=== PATIENT | male | born 1945 | race Caucasian/White ===

== ENCOUNTER 2019-04-24 12:13 | Observation (INO) | payer MEDICARE, OTHER ==
[2019-04-24] MEDS ORDERED: Sodium Chloride 0.9% 1000 ML 1,000 ML IV STA (15:17)
[2019-04-24] MEDS ORDERED: FEVERALL 650 MG PR PRN (15:17)
[2019-04-24] MEDS ORDERED: NovoLOG Insulin SQ PRN (15:17)
[2019-04-24 15:42] LABS: Absolute Neutrophil Ct (ANC) 6.78 (1.4-6.9); BASOPHIL % 0.3 % (0.0-0.4); Basophil (Absolute #) 0.03 (0-0.4); Eosinophil % 3.2 % (0.00-5.0); Eosinophil (Absolute #) 0.28 (0-0.5); Hemoglobin 13.8 gm/dl (12.5-18.0); Lymphocyte (Absolute #) 0.86 (1.0-4.6); Lymphocytes % 9.7 % (24.0-44.0); Mean Cell Volume 103.5 fl (78-100); Mean Corpuscular Hemoglobin 32.5 pg (26-32); Mean Corpuscular Hgb Concent. 31.4 g/dl (32-36); Mean Platelet Volume 11.5 fl (7.5-11.0); Monocyte (Absolute #) 0.89 (0.0-1.3); Monocytes % 10.1 % (0.0-12.0); Neutrophil % 76.7 % (36.0-66.0); Platelet Count 84 K/mm3 (150-450); Red Blood Count 4.25 M/mm3 (4.1-5.6); Red Cell Distribution Width 17.7 % (11.5-14.0); White Blood Count 8.8 K/mm3 (4.0-10.5)
[2019-04-24 16:03] LABS: ALBUMIN 3.8 g/dL (3.5-5.0); ALKALINE PHOSPHATASE 74 U/L (38-126); ANION GAP 9.9 MEQ/L (5-15); BLOOD UREA NITROGEN 22 mg/dL (9-20); CHLORIDE 102 mmol/L (98-107); Carbon Dioxide 29 mmol/L (22-30); Creatinine 1 0.86 mg/dL (0.66-1.25); Glucose 144 mg/dL (74-106); NT PRO BNP 139 pg/mL (0-900); Potassium 3.6 mmol/L (3.5-5.1); SGOT/AST 33 U/L (17-59); SGPT/ALT 33 U/L (0-50); SODIUM 138 mmol/L (137-145); Total Protein 6.4 g/dL (6.3-8.2)
[2019-04-24 16:13] LABS: Erythrocyte Sedimentation Rate 4 mm/hr (0-15)
--- NOTE | 2019-04-24 16:21 | XRAY ---
Indication: Bilateral rib pain. Multiple falls. Comparison: May 30, 2006. PA/lateral chest underinflated with new left base infiltrate/atelectasis and tiny effusion. Remaining heart and right lung normal. Bony thorax intact again with mild degenerative changes and multiple old bilateral rib fractures.
[2019-04-24 16:50] LABS: Slide Review 1 YES
[2019-04-24] MEDS: Coumadin 2.5 MG PO SCH (17:41)
[2019-04-24] MEDS: Sodium Chloride 0.9% 1000 ML 1,000 ML IV SCH (17:42)
[2019-04-24] MEDS: MORPHINE SULFATE 4 MG INJ IV PRN ×2 (17:46→21:08)
[2019-04-24] MEDS: xanAX 0.5 MG PO SCH ×2 (17:47→21:07)
[2019-04-24] MEDS: Bystolic 5 MG PO SCH (21:07)
[2019-04-24] MEDS: ROCEPHIN 1 Gm-D5w 50 ml Bag** 1 G/50 ML IVPB IV SCH (21:07)
[2019-04-24] MEDS: Zanaflex 4 MG PO SCH (21:07)
[2019-04-24] MEDS: ZOCOR 20MG PO SCH (21:07)
[2019-04-24] MEDS: Protonix 40MG Tablet PO SCH (21:07)
[2019-04-24] MEDS ORDERED: NON-FORMULARY ITEM (Atorvastatin Calcium [Lipitor] 20 MG) PO SCH (22:00)
[2019-04-24] MEDS: Zithromax 500 MG/ 250 ML NaCl Premix 500 MG/250 ML IVPB IV SCH (22:18)
[2019-04-25] MEDS: MORPHINE SULFATE 4 MG INJ IV PRN ×3 (00:52→21:30)
[2019-04-25] MEDS: Sodium Chloride 0.9% 1000 ML 1,000 ML IV SCH ×2 (05:19→17:45)
[2019-04-25 08:21] LABS: Appearance CLEAR (CLEAR); Bilirubin NEGATIVE (NEGATIVE); Blood NEGATIVE Ery/ul (0-5); Glucose NEGATIVE (NEGATIVE); Ketones NEGATIVE (NEGATIVE); Leukocyte Esterase NEGATIVE (NEGATIVE); Mucus SLIGHT /HPF (NEGATIVE); Nitrite NEGATIVE (NEGATIVE); Protein,Urine Dip NEGATIVE (Negative); Specific Gravity 1.012 (1.005-1.025); Urobilinogen NEGATIVE mg/dL (0-1)
[2019-04-25] MEDS: Zanaflex 4 MG PO SCH ×2 (09:43→21:30)
[2019-04-25] MEDS: Cymbalta 30 MG Capsule PO SCH (09:43)
[2019-04-25] MEDS: xanAX 0.5 MG PO SCH ×3 (09:46→21:30)
[2019-04-25 09:57] LABS: Hematocrit 44.2 % (42-50); Hemoglobin 13.5 gm/dl (12.5-18.0); Mean Corpuscular Hemoglobin 32.4 pg (26-32); Mean Corpuscular Hgb Concent. 30.5 g/dl (32-36); Mean Platelet Volume 11.9 fl (7.5-11.0); Platelet Count 109 K/mm3 (150-450); Red Blood Count 4.17 M/mm3 (4.1-5.6); Red Cell Distribution Width 17.8 % (11.5-14.0)
[2019-04-25] MEDS ORDERED: NON-FORMULARY ITEM (Duloxetine Hcl [Cymbalta] 60 MG) PO SCH (10:00)
[2019-04-25 10:05] LABS: ALBUMIN 3.2 g/dL (3.5-5.0); ALKALINE PHOSPHATASE 65 U/L (38-126); ANION GAP 8.7 MEQ/L (5-15); BLOOD UREA NITROGEN 15 mg/dL (9-20); CHLORIDE 107 mmol/L (98-107); Calcium 7.6 mg/dL (8.4-10.2); Carbon Dioxide 28 mmol/L (22-30); Creatinine 1 0.77 mg/dL (0.66-1.25); Glucose 104 mg/dL (74-106); Potassium 4.1 mmol/L (3.5-5.1); SGOT/AST 34 U/L (17-59); SGPT/ALT 33 U/L (0-50); SODIUM 140 mmol/L (137-145); Total Protein 5.7 g/dL (6.3-8.2)
[2019-04-25 10:06] LABS: AMYLASE 49 U/L (30-110); LIPASE 54 U/L (23-300)
[2019-04-25 12:45] LABS: INR 1.69 (0.8-3.0); PROTIME 19.3 SECONDS (8.83-12.87)
--- NOTE | 2019-04-25 13:38 | XRAY ---
Indication: Pneumonia. Multiple contiguous axial images obtained through the chest prior to and following 80 cc Isovue 370 contrast as ordered. Comparison: None Lungs demonstrates small bilateral pleural effusions with mild bibasilar subsegmental atelectasis/scarring. Minimal right upper lobe fibrosis/scarring and tiny left lower lobe calcified granuloma. Heart is not enlarged. Aorta is normal in course and caliber. Tiny left hilar calcified node. No pathologic mediastinal/hilar lymphadenopathy. Bony thorax demonstrates flowing osteophytes throughout the spine and old posterior right 6-8 rib fractures. Limited upper abdomen demonstrates calcified splenic granulomas and 1.8 cm right lobe hepatic cyst unchanged with respect to CT abdomen June 11, 2016. Gastric lumen demonstrates a new 3 x 18 mm metallic density. Impression: 1. Small nonspecific bilateral pleural effusions/atelectasis/scarring without cardiomegaly. 2. Hepatic cyst, chronic bony findings, and evidence for old granulomatous disease. 3. Metallic density in the gastric lumen. Rule out ingested foreign body.
--- NOTE | 2019-04-25 14:12 | PCM.HP.ADD ---
Addendum to History & Physical - History & Physical Addendum Addendum to History & Physical: This certifies that the History & Physical in the electronic chart reflects the current health status of the patient. If there are changes in the H&P these changes/exceptions are listed as follows.
--- NOTE | 2019-04-25 14:13 | PCM.NOTE ---
Date and Time: 04/25/191411 Subjective Assessment: still confused - Review of Systems Constitutional: No Fever, No Chills Eyes: No Symptoms Ears, Nose, & Throat: No Symptoms Respiratory: No Cough, No Short Of Breath Cardiac: No Chest Pain, No Edema, No Syncope Abdominal/Gastrointestinal: No Abdominal Pain, No Nausea, No Vomiting, No Diarrhea Genitourinary Symptoms: No Dysuria Musculoskeletal: No Back Pain, No Neck Pain Skin: No Rash Neurological: No Dizziness, No Focal Weakness, No Sensory Changes Psychological: No Symptoms Endocrine: No Symptoms Hematologic/Lymphatic: No Symptoms Immunological/Allergic: No Symptoms Objective Exam General Appearance: no apparent distress, alert Neurologic Exam: alert, oriented x 3, cooperative, normal mood/affect, nml cerebellar function, sensation nml, No motor deficits Skin Exam: normal color, warm, dry Eye Exam: PERRL, EOMI, eyes nml inspection Ears, Nose, Throat Exam: normal ENT inspection, pharynx normal, moist mucous membranes Neck Exam: normal inspection, non-tender, supple, full range of motion Respiratory Exam: prolonged expirations, crackles/rales, rhonchi, wheezing, No respiratory distress Cardiovascular Exam: regular rate/rhythm, normal heart sounds Gastrointestinal/Abdomen Exam: soft, No tenderness, No mass Extremity Exam: normal inspection, normal range of motion Back Exam: normal inspection, normal range of motion, No CVA tenderness, No vertebral tenderness Male Genitalia Exam: deferred Rectal Exam: deferred OBJECTIVE DATA Vital Signs: Vital Signs - 24 hr Temp Pulse Resp BP Pulse Ox 04/25/19 12:00 97.5 F 51 L 16 96/53 95 04/25/19 08:00 97.9 F 50 L 16 103/53 97 04/25/19 06:50 93 L 04/25/19 04:00 97.5 F 51 L 18 107/57 95 04/25/19 00:00 97.6 F 71 20 100/55 98 04/24/19 20:00 97.9 F 57 L 20 128/61 96 04/24/19 19:50 93 L 04/24/19 16:00 98 F 80 20 128/68 95 Oxygen-Last 24 hours O2 Percentage 2 Liters = 28% O2 Percentage 2 Liters = 28% Pain Assessment - Last Documented Pain Intensity 7 [facility]ake and Output: Intake & Output 04/23/19 04/24/19 04/25/19 04/26/19 11:59 11:59 11:59 11:59 Intake Total 3044 0 Output Total 1650 Balance 1394 0 Weight 104.3 kg Lab Results: Accuchecks Date 04/24/19 Time 21:57 Accucheck Value: 98 Accucheck Value: 108 Lab Results-Last 24 Hours 04/24/19 04/24/19 04/24/19 Range/Units 15:43 15:43 Unknown WBC 8.8 (4.0-10.5) K/mm3 RBC 4.25 (4.1-5.6) M/mm3 Hgb 13.8 (12.5-18.0) gm/dl Hct 44.0 (42-50) % MCV 103.5 H (78-100) fl MCH 32.5 H (26-32) pg MCHC 31.4 L (32-36) g/dl RDW 17.7 H (11.5-14.0) % Plt Count 84 L (150-450) K/mm3 MPV 11.5 H (7.5-11.0) fl Gran % 76.7 H (36.0-66.0) % Eos # (Auto) 0.28 (0-0.5) Absolute Lymphs (auto) 0.86 L (1.0-4.6) Absolute Monos (auto) 0.89 (0.0-1.3) Lymphocytes % 9.7 L (24.0-44.0) % Monocytes % 10.1 (0.0-12.0) % Eosinophils % 3.2 (0.00-5.0) % Basophils % 0.3 (0.0-0.4) % Absolute Granulocytes 6.78 (1.4-6.9) Basophils # 0.03 (0-0.4) ESR 4 (0-15) mm/hr PT (8.83-12.87) SECONDS INR (0.8-3.0) D-Dimer (215-500) ng/mL Sodium 138 (137-145) mmol/L Potassium 3.6 (3.5-5.1) mmol/L Chloride 102 (98-107) mmol/L Carbon Dioxide 29 (22-30) mmol/L Anion Gap 9.9 (5-15) MEQ/L BUN 22 H (9-20) mg/dL Creatinine 0.86 (0.66-1.25) mg/dL Estimated GFR > 60.0 ML/MIN Glucose 144 H (74-106) mg/dL Hemoglobin A1c 5.57 (4.5-6.0) % Calcium 8.0 L (8.4-10.2) mg/dL Total Bilirubin 1.10 (0.2-1.3) mg/dL AST 33 (17-59) U/L ALT 33 (0-50) U/L Alkaline Phosphatase 74 (38-126) U/L NT-Pro-B Natriuret Pep 139 (0-900) pg/mL Serum Total Protein 6.4 (6.3-8.2) g/dL Albumin 3.8 (3.5-5.0) g/dL Amylase (30-110) U/L Lipase (23-300) U/L Urine Color (YELLOW) Urine Appearance (CLEAR) Urine pH (5-6) Ur Specific Eads (1.005-1.025) Urine Protein (Negative) Urine Ketones (NEGATIVE) Urine Blood (0-5) You/ul Urine Nitrite (NEGATIVE) Urine Bilirubin (NEGATIVE) Urine Urobilinogen (0-1) mg/dL Ur Leukocyte Esterase (NEGATIVE) Urine WBC (Auto) (0-5) /HPF Urine RBC (Auto) (0-2) /HPF U Epithel Cells (Auto) (FEW) /HPF Urine Bacteria (Auto) (NEGATIVE) /HPF Urine Mucus (Auto) (NEGATIVE) /HPF Urine Culture Reflexed (NO) Urine Glucose (NEGATIVE) mg/dL Slides for Path Review YES 04/25/19 04/25/19 04/25/19 Range/Units 07:52 09:45 09:45 WBC (4.0-10.5) K/mm3 RBC (4.1-5.6) M/mm3 Hgb (12.5-18.0) gm/dl Hct (42-50) % MCV (78-100) fl MCH (26-32) pg MCHC (32-36) g/dl RDW (11.5-14.0) % Plt Count (150-450) K/mm3 MPV (7.5-11.0) fl Gran % (36.0-66.0) % Eos # (Auto) (0-0.5) Absolute Lymphs (auto) (1.0-4.6) Absolute Monos (auto) (0.0-1.3) Lymphocytes % (24.0-44.0) % Monocytes % (0.0-12.0) % Eosinophils % (0.00-5.0) % Basophils % (0.0-0.4) % Absolute Granulocytes (1.4-6.9) Basophils # (0-0.4) ESR (0-15) mm/hr PT (8.83-12.87) SECONDS INR (0.8-3.0) D-Dimer 494 (215-500) ng/mL Sodium (137-145) mmol/L Potassium (3.5-5.1) mmol/L Chloride (98-107) mmol/L Carbon Dioxide (22-30) mmol/L Anion Gap (5-15) MEQ/L BUN (9-20) mg/dL Creatinine (0.66-1.25) mg/dL Estimated GFR ML/MIN Glucose (74-106) mg/dL Hemoglobin A1c (4.5-6.0) % Calcium (8.4-10.2) mg/dL Total Bilirubin (0.2-1.3) mg/dL AST (17-59) U/L ALT (0-50) U/L Alkaline Phosphatase (38-126) U/L NT-Pro-B Natriuret Pep (0-900) pg/mL Serum Total Protein (6.3-8.2) g/dL Albumin (3.5-5.0) g/dL Amylase 49 (30-110) U/L Lipase 54 (23-300) U/L Urine Color YELLOW (YELLOW) Urine Appearance CLEAR (CLEAR) Urine pH 5.0 (5-6) Ur Specific Eads 1.012 (1.005-1.025) Urine Protein NEGATIVE (Negative) Urine Ketones NEGATIVE (NEGATIVE) Urine Blood NEGATIVE (0-5) You/ul Urine Nitrite NEGATIVE (NEGATIVE) Urine Bilirubin NEGATIVE (NEGATIVE) Urine Urobilinogen NEGATIVE (0-1) mg/dL Ur Leukocyte Esterase NEGATIVE (NEGATIVE) Urine WBC (Auto) NONE (0-5) /HPF Urine RBC (Auto) NONE (0-2) /HPF U Epithel Cells (Auto) NONE (FEW) /HPF Urine Bacteria (Auto) NONE (NEGATIVE) /HPF Urine Mucus (Auto) SLIGHT (NEGATIVE) /HPF Urine Culture Reflexed NO (NO) Urine Glucose NEGATIVE (NEGATIVE) mg/dL Slides for Path Review 04/25/19 04/25/19 04/25/19 Range/Units 09:45 09:45 10:00 WBC 7.0 (4.0-10.5) K/mm3 RBC 4.17 (4.1-5.6) M/mm3 Hgb 13.5 (12.5-18.0) gm/dl Hct 44.2 (42-50) % MCV 106.0 H (78-100) fl MCH 32.4 H (26-32) pg MCHC 30.5 L (32-36) g/dl RDW 17.8 H (11.5-14.0) % Plt Count 109 L (150-450) K/mm3 MPV 11.9 H (7.5-11.0) fl Gran % (36.0-66.0) % Eos # (Auto) (0-0.5) Absolute Lymphs (auto) (1.0-4.6) Absolute Monos (auto) (0.0-1.3) Lymphocytes % (24.0-44.0) % Monocytes % (0.0-12.0) % Eosinophils % (0.00-5.0) % Basophils % (0.0-0.4) % Absolute Granulocytes (1.4-6.9) Basophils # (0-0.4) ESR (0-15) mm/hr PT 19.3 H (8.83-12.87) SECONDS INR 1.69 (0.8-3.0) D-Dimer (215-500) ng/mL Sodium 140 (137-145) mmol/L Potassium 4.1 (3.5-5.1) mmol/L Chloride 107 (98-107) mmol/L Carbon Dioxide 28 (22-30) mmol/L Anion Gap 8.7 (5-15) MEQ/L BUN 15 (9-20) mg/dL Creatinine 0.77 (0.66-1.25) mg/dL Estimated GFR > 60.0 ML/MIN Glucose 104 (74-106) mg/dL Hemoglobin A1c (4.5-6.0) % Calcium 7.6 L (8.4-10.2) mg/dL Total Bilirubin 1.00 (0.2-1.3) mg/dL AST 34 (17-59) U/L ALT 33 (0-50) U/L Alkaline Phosphatase 65 (38-126) U/L NT-Pro-B Natriuret Pep (0-900) pg/mL Serum Total Protein 5.7 L (6.3-8.2) g/dL Albumin 3.2 L (3.5-5.0) g/dL Amylase (30-110) U/L Lipase (23-300) U/L Urine Color (YELLOW) Urine Appearance (CLEAR) Urine pH (5-6) Ur Specific Eads (1.005-1.025) Urine Protein (Negative) Urine Ketones (NEGATIVE) Urine Blood (0-5) You/ul Urine Nitrite (NEGATIVE) Urine Bilirubin (NEGATIVE) Urine Urobilinogen (0-1) mg/dL Ur Leukocyte Esterase (NEGATIVE) Urine WBC (Auto) (0-5) /HPF Urine RBC (Auto) (0-2) /HPF U Epithel Cells (Auto) (FEW) /HPF Urine Bacteria (Auto) (NEGATIVE) /HPF Urine Mucus (Auto) (NEGATIVE) /HPF Urine Culture Reflexed (NO) Urine Glucose (NEGATIVE) mg/dL Slides for Path Review Radiology Exams: Radiology Procedures Category Date Time Status CHEST 2 VIEWS (PA AND LAT) Stat Exams 04/24/19 15:54 Completed CHEST W/WO CONTRAST [CT] Routine Exams 04/25/19 08:00 Completed Multi-Disciplinary Progress Notes: Multi-Disciplinary Progress Notes 04/24/19 17:26 Pharmacy Note by Chaka Aguero Please be aware of possible drug interaction with Coumadin and Zithromax. May increase INR. Initialized on 04/24/19 17:26 - END OF NOTE Assessment/Plan (1) Pneumonia Current Visit: Yes Status: Acute Code(s): J18.9 - PNEUMONIA, UNSPECIFIED ORGANISM (2) Rib fracture Current Visit: Yes Status: Acute Code(s): S22.39XA - FRACTURE OF ONE RIB, UNSP SIDE, INIT FOR CLOS FX
--- NOTE | 2019-04-25 15:03 | XRAY ---
Indication: Low back pain following fall. Comparison: None 3 views of the lumbar spine demonstrates 5 lumbar vertebral segments in normal alignment with minimal/mild multilevel bridging and nonbridging thoracolumbar endplate spurring. Minimal L5-S1 disc space narrowing, IVC filter in situ, and contrast in the system from CT chest performed earlier in the day. No acute fracture, subluxation, or suspicious bony lesions. Impression: Nonacute lumbar spine with chronic features.
[2019-04-25] MEDS ORDERED: Coumadin 5 MG PO SCH (18:00)
[2019-04-25] MEDS: ZOCOR 20MG PO SCH (21:30)
[2019-04-25] MEDS: Zithromax 500 MG/ 250 ML NaCl Premix 500 MG/250 ML IVPB IV SCH (21:30)
[2019-04-25] MEDS: Bystolic 5 MG PO SCH (21:30)
[2019-04-25] MEDS: Protonix 40MG Tablet PO SCH (21:30)
[2019-04-25] MEDS: ROCEPHIN 1 Gm-D5w 50 ml Bag** 1 G/50 ML IVPB IV SCH (21:41)
[2019-04-26] MEDS: MORPHINE SULFATE 4 MG INJ IV PRN ×3 (03:13→17:06)
[2019-04-26] MEDS: Sodium Chloride 0.9% 1000 ML 1,000 ML IV SCH (09:38)
[2019-04-26] MEDS: Cymbalta 30 MG Capsule PO SCH (09:40)
[2019-04-26] MEDS: Zanaflex 4 MG PO SCH ×2 (09:41→22:53)
[2019-04-26] MEDS: xanAX 0.5 MG PO SCH ×3 (09:41→22:52)
[2019-04-26 12:33] LABS: INR 2.02 (0.8-3.0); PROTIME 23.1 SECONDS (8.83-12.87)
[2019-04-26] MEDS: Coumadin 2.5 MG PO SCH (17:08)
[2019-04-26] MEDS: Bystolic 5 MG PO SCH (22:53)
[2019-04-26] MEDS: ZOCOR 20MG PO SCH (22:53)
[2019-04-26] MEDS: Protonix 40MG Tablet PO SCH (22:53)
[2019-04-27] MEDS: Zithromax 500 MG/ 250 ML NaCl Premix 500 MG/250 ML IVPB IV SCH (01:24)
[2019-04-27] MEDS: ROCEPHIN 1 Gm-D5w 50 ml Bag** 1 G/50 ML IVPB IV SCH (01:25)
[2019-04-27] MEDS ORDERED: TYLENOL EXTRA STRENGTH 500 MG PO PRN (03:07)
[2019-04-27] MEDS: Sodium Chloride 0.9% 10 ML FLUSH Syringe IV SCH ×2 (03:09→06:49)
[2019-04-27 06:32] LABS: INR 2.3 (0.8-3.0); PROTIME 26.4 SECONDS (8.83-12.87)
[2019-04-27 07:27] VITALS: O2SAT 94
[2019-04-27] MEDS: Zanaflex 4 MG PO SCH (10:02)
[2019-04-27] MEDS: Cymbalta 30 MG Capsule PO SCH (10:02)
[2019-04-27] MEDS: xanAX 0.5 MG PO SCH (10:02)
[2019-04-27 12:39] VITALS: BP 124/70; PULSE 70
== END 2019-04-27 13:15 | disposition home or self-care (01) ==
LOC: MED SURG 13:03
PROVIDERS: ADMIT General Practice; ATTEND General Practice
DX: J18.9 Pneumonia, unspecified organism (principal); R53.1 Weakness; I11.9 Hypertensive heart disease without heart failure; S22.39XA Fracture of one rib, unspecified side, initial encounter for closed fracture; M54.5 Low back pain; Z86.718 Personal history of other venous thrombosis and embolism; Z79.01 Long term (current) use of anticoagulants; Z79.899 Other long term (current) drug therapy
CPT/HCPCS: 36415; 71046; 71270; 72100; 80053; 81001; 82150; 82962; 83036; 83690; 83880; 85025; 85027; 85379; 85610; 85652; 93005; 94760; 97161; G0378; J0456; J0696; J2270; A9270-GY

== ENCOUNTER 2019-09-18 15:34 | Emergency (ER) | payer MEDICARE ==
--- NOTE | 2019-09-18 15:36 | ERPHSYRPT ---
- History of Present Illness Time Seen by Provider: 09/18/19 15:36 Source: patient Exam Limitations: no limitations Physician History: This is a 74-year-old white male who is on Coumadin for treatment of a DVT and presents with hematuria. This patient was told he had an elevated INR yesterday. inr was over 6. His last dose of Coumadin was yesterday morning. Patient has a follow-up appointment scheduled with his primary care physician, Dr. Fernandez, tomorrow morning. However, the patient noticed hematuria and he became concerned. Patient has a mild headache. He has a history of hypertension and his blood pressure is up a little bit. He denies any head trauma. He does not have any chest pain, denies shortness of breath, denies abdominal pain. He has no painful urination. He has no flank pain. Patient denies nosebleed. He denies dark, black or bloody stools. Timing/Duration: today Activites at Onset: none Quality: other (No pain) Onset Location: other (No pain) Pain Radiation: none Severity of Pain-Max: none Severity of Pain-Current: none Modifying Factors: Improves With: nothing Associated Symptoms: other (Hematuria) Sexual intercourse history: non-contributory Allergies/Adverse Reactions: aspirin Allergy (Verified 04/24/19 13:25) cephalexin [From Keflex] Allergy (Verified 04/24/19 13:25) Penicillins Allergy (Verified 04/24/19 13:25) Home Medications: Alprazolam [Xanax] 0.5 mg PO TID 04/24/19 [History] Atorvastatin Calcium [Lipitor] 20 mg PO HS 04/24/19 [History] Duloxetine HCl 30 mg [Cymbalta 30 MG Capsule] 30 mg PO DAILY 04/24/19 [ History] Duloxetine HCl [Cymbalta] 60 mg PO DAILY 04/24/19 [History] Nebivolol HCl 5 MG [Bystolic 5 MG] 10 mg PO HS 04/24/19 [History] PANTOPRAZOLE 40 mg Tablet [Protonix 40MG Tablet] 40 mg PO HS 04/24/19 [ History] Tizanidine HCl 4 mg [Zanaflex 4 MG] 4 mg PO BID 04/24/19 [History] Warfarin Sodium 2.5 mg [Coumadin 2.5 MG] 2.5 mg PO UD 04/24/19 [History] Warfarin Sodium 5 mg [Coumadin 5 MG] 5 mg PO UD 04/24/19 [History] Travel Risk - International Travel Have you traveled outside of the country in past 3 weeks: No - Coronavirus Screening Are you exhibiting any of the following symptoms?: No Close contact with a COVID-19 positive Pt in past 14-21 Days: No - Past Medical History Pertinent Past Medical History: Yes Neurological History: No Pertinent History ENT History: No Pertinent History Cardiac History: Deep Vein Thrombosis Respiratory History: No Pertinent History Endocrine Medical History: No Pertinent History Musculoskeletal History: Arthritis, Fibromyalgia GI Medical History: No Pertinent History History: No Pertinent History Psycho-Social History: No Pertinent History Male Reproductive Disorders: No Pertinent History - Past Surgical History Past Surgical History: Yes Neuro Surgical History: No Pertinent History Cardiac: No Pertinent History Respiratory: No Pertinent History Gastrointestinal: Appendectomy Genitourinary: No Pertinent History Musculoskeletal: Orthopedic Surgery Male Surgical History: Prostate Surgery Other Surgical History: Tumors removed from back, manav filter placed, - Social History Smoking Status: Never smoker Drug Use: none - Review of Systems Constitutional: No Symptoms Eyes: No Symptoms Ears, Nose, & Throat: No Symptoms Respiratory: No Symptoms Cardiac: No Symptoms Abdominal/Gastrointestinal: No Symptoms Genitourinary Symptoms: Hematuria Musculoskeletal: No Symptoms Skin: No Symptoms Neurological: No Symptoms Psychological: No Symptoms Endocrine: No Symptoms Hematologic/Lymphatic: No Symptoms Immunological/Allergic: No Symptoms All Other Systems: Reviewed and Negative - Nursing Vital Signs Nursing Vital Signs: Initial Vital Signs Temperature 98.3 F 09/18/19 15:43 Pulse Rate 59 L 09/18/19 15:43 Respiratory Rate 22 09/18/19 15:43 Blood Pressure 167/116 09/18/19 15:43 O2 Sat by Pulse Oximetry 98 09/18/19 15:43 Pain Scale Pain Intensity 0 - Physical Exam General Appearance: no apparent distress, alert, anxiety Eye Exam: PERRL/EOMI, eyes nml inspection Ears, Nose, Throat Exam: normal ENT inspection, moist mucous membranes Neck Exam: normal inspection, non-tender, supple, full range of motion Respiratory Exam: normal breath sounds, lungs clear, airway intact, No chest tenderness, No respiratory distress Cardiovascular Exam: regular rate/rhythm, normal heart sounds, normal peripheral pulses Gastrointestinal/Abdomen Exam: soft, normal bowel sounds, No tenderness Rectal Exam: not done Back Exam: normal inspection, normal range of motion, No CVA tenderness, No vertebral tenderness Extremity Exam: normal inspection, normal range of motion, pelvis stable Neurologic Exam: alert, oriented x 3, cooperative, drafter marine II-XII nml as tested Skin Exam: normal color, warm, dry Lymphatic Exam: No adenopathy SpO2 Interpretation: normal O2 Delivery: Room Air - Course Nursing assessment & vital signs reviewed: Yes Ordered Tests: Active Orders 24 hr Category Date Time Status IV Insertion STAT Care 09/18/19 15:55 Active CBC W DIFF Stat Lab 09/18/19 15:55 Completed CULTURE,URINE Stat Lab 09/18/19 16:10 Received PROTIME WITH INR Stat Lab 09/18/19 15:55 Completed UA W/RFX UR CULTURE Stat Lab 09/18/19 16:10 Completed Medication Summary Generic Name Dose Route Start Last Admin Trade Name Freq PRN Reason Stop Dose Admin Levofloxacin/Dextrose 750 mg in 150 mls @ 100 mls/hr 09/18/19 16:42 09/18/19 16:45 Levofloxacin 750mg/150ml D5w IV 09/18/19 18:11 100 mls/hr STAT STA 100 mls/hr Administration Discontinued Medications Generic Name Dose Route Start Last Admin Trade Name Freq PRN Reason Stop Dose Admin Levofloxacin/Dextrose Confirm 09/18/19 16:45 Levofloxacin 750mg/150ml D5w Administered 09/18/19 16:46 Dose 750 mg in 150 mls @ ud IV .[facility] Lab/Rad Data: Laboratory Result Diagrams 09/18/19 15:55 Laboratory Results 09/18/19 09/18/19 09/18/19 Range/Units 16:10 15:55 15:55 WBC 8.6 (4.0-10.5) K/mm3 RBC 4.63 (4.1-5.6) M/mm3 Hgb 14.4 (12.5-18.0) gm/dl Hct 46.9 (42-50) % MCV 101.3 H (78-100) fl MCH 31.1 (26-32) pg MCHC 30.7 L (32-36) g/dl RDW 15.1 H (11.5-14.0) % Plt Count 137 L (150-450) K/mm3 MPV 12.3 H (7.5-11.0) fl Gran % 74.3 H (36.0-66.0) % Eos # (Auto) 0.33 (0-0.5) Absolute Lymphs (auto) 0.96 L (1.0-4.6) Absolute Monos (auto) 0.85 (0.0-1.3) Lymphocytes % 11.2 L (24.0-44.0) % Monocytes % 9.9 (0.0-12.0) % Eosinophils % 3.8 (0.00-5.0) % Basophils % 0.8 (0.0-0.4) % Absolute Granulocytes 6.38 (1.4-6.9) Basophils # 0.07 (0-0.4) PT 54.5 H (8.83-12.87) SECONDS INR 4.67 H (0.8-3.0) Urine Color YELLOW (YELLOW) Urine Appearance CLOUDY (CLEAR) Urine pH 7.0 (5-6) Ur Specific [place] 1.009 (1.005-1.025) Urine Protein 30 (Negative) Urine Ketones NEGATIVE (NEGATIVE) Urine Blood LARGE (0-5) You/ul Urine Nitrite NEGATIVE (NEGATIVE) Urine Bilirubin NEGATIVE (NEGATIVE) Urine Urobilinogen NEGATIVE (0-1) mg/dL Ur Leukocyte Esterase LARGE (NEGATIVE) Urine WBC (Auto) >100 (0-5) /HPF Urine RBC (Auto) >101 (0-2) /HPF U Epithel Cells (Auto) RARE (FEW) /HPF Urine Bacteria (Auto) MODERATE (NEGATIVE) /HPF U Non-Squamous Epi Cells RARE (FEW) /HPF Urine Culture Reflexed YES (NO) Urine Glucose NEGATIVE (NEGATIVE) mg/dL - Progress Progress: unchanged Progress Note: 09/18/19 16:51 Medical screening exam: pts inr decreased from over 6 to 4.67. will not treat this elevated inr value with vitamin k since by discontinuing coumadin has sig decreased inr. pt is hemodynamically stable. pt has an appt tomorrow with pcp. will tx his uti. pt is to have his inr rechecked tomorrow Counseled pt/family regarding: lab results, diagnosis, need for follow-up - Departure Departure Disposition: Home Clinical Impression: Hematuria, Elevated INR, UTI (urinary tract infection) Condition: Stable Critical Care Time: No Referrals: JAQUELIN FERNANDEZ MD [Primary Care Provider] - Additional Instructions: Drink plenty of fluids. Do not resume your Coumadin/warfarin until instructed by your primary care physician. Keep your appointment tomorrow to see your primary care physician. Prescriptions: Ciprofloxacin [Cipro 500 MG] 500 mg PO BID #14 tablet
[2019-09-18 16:27] LABS: Appearance CLOUDY (CLEAR); Bacteria MODERATE /HPF (NEGATIVE); Bilirubin NEGATIVE (NEGATIVE); Blood LARGE Ery/ul (0-5); Epithelial Cells RARE /HPF (FEW); Glucose NEGATIVE (NEGATIVE); Ketones NEGATIVE (NEGATIVE); Leukocyte Esterase LARGE (NEGATIVE); Nitrite NEGATIVE (NEGATIVE); Non-Squamous Epithelial Cells RARE /HPF (FEW); Protein,Urine Dip 30 (Negative); Specific Gravity 1.009 (1.005-1.025); Urobilinogen NEGATIVE mg/dL (0-1); WBC >100 /HPF (0-5)
[2019-09-18 16:30] LABS: RBC >101 /HPF (0-2)
[2019-09-18 16:42] LABS: Absolute Neutrophil Ct (ANC) 6.38 (1.4-6.9); BASOPHIL % 0.8 % (0.0-0.4); Basophil (Absolute #) 0.07 (0-0.4); Eosinophil % 3.8 % (0.00-5.0); Eosinophil (Absolute #) 0.33 (0-0.5); Hematocrit 46.9 % (42-50); Hemoglobin 14.4 gm/dl (12.5-18.0); Lymphocyte (Absolute #) 0.96 (1.0-4.6); Lymphocytes % 11.2 % (24.0-44.0); Mean Cell Volume 101.3 fl (78-100); Mean Corpuscular Hemoglobin 31.1 pg (26-32); Mean Corpuscular Hgb Concent. 30.7 g/dl (32-36); Mean Platelet Volume 12.3 fl (7.5-11.0); Monocyte (Absolute #) 0.85 (0.0-1.3); Monocytes % 9.9 % (0.0-12.0); Neutrophil % 74.3 % (36.0-66.0); Platelet Count 137 K/mm3 (150-450); Red Blood Count 4.63 M/mm3 (4.1-5.6); Red Cell Distribution Width 15.1 % (11.5-14.0); White Blood Count 8.6 K/mm3 (4.0-10.5)
[2019-09-18] MEDS ORDERED: LEVOFLOXACIN 750MG/150ML D5W 750 MG/150 ML BAG IV STA (16:42)
[2019-09-18 16:44] LABS: INR 4.67 (0.8-3.0); PROTIME 54.5 SECONDS (8.83-12.87)
[2019-09-18] MEDS ORDERED: LEVOFLOXACIN 750MG/150ML D5W 750 MG/150 ML BAG IV ONE (16:45)
[2019-09-18 18:21] VITALS: BP 149/60; PULSE 54; O2SAT 98
== END 2019-09-18 18:21 | disposition home or self-care (01) ==
LOC: ED 15:34
DX: R31.9 Hematuria, unspecified (principal); D68.8 Other specified coagulation defects; N39.0 Urinary tract infection, site not specified; Z79.01 Long term (current) use of anticoagulants; I10 Essential (primary) hypertension; Z79.899 Other long term (current) drug therapy
CPT/HCPCS: 36000; 36415; 81001; 85025; 85610; 87077; 87086; 87186; 96365; 99284; J1956

== ENCOUNTER 2019-11-15 22:21 | Emergency (ER) | payer MEDICARE ==
--- NOTE | 2019-11-15 22:35 | ERPHSYRPT ---
- History of Present Illness Time Seen by Provider: 11/15/19 22:35 Source: patient, family Exam Limitations: no limitations Physician History: This is a 74-year-old white male patient of Dr. Fernandez and presents with a history of frequent falls. He fell again at home hitting his head on his washer as well as his neck and lower back. He complains additionally, to having right shoulder and right elbow pain. Patient was brought in by EMS on a backboard and with a c-collar in place. He is on Xarelto chronically for treatment of a deep venous thrombosis. Occurred: just prior to arrival Reason for Fall: fell from standing pos (Backwards) Injuries/Pain Location: head, neck, upper extremity (Right shoulder and right elbow), back, lower Loss of Consciousness: no loss of consciousness Quality: aching Severity of Pain-Max: mild Severity of Pain-Current: mild Modifying Factors: Improves With: movement Associated Symptoms (Fall): trouble walking (Chronic) Allergies/Adverse Reactions: aspirin Allergy (Verified 11/15/19 22:39) cephalexin [From Keflex] Allergy (Verified 11/15/19 22:39) Penicillins Allergy (Verified 11/15/19 22:39) Home Medications: Alprazolam [Xanax] 0.5 mg PO TID 04/24/19 [History] Atorvastatin Calcium [Lipitor] 20 mg PO HS 04/24/19 [History] Duloxetine HCl 30 mg [Cymbalta 30 MG Capsule] 30 mg PO DAILY 04/24/19 [History] Duloxetine HCl [Cymbalta] 60 mg PO DAILY 04/24/19 [History] Nebivolol HCl 5 MG [Bystolic 5 MG] 10 mg PO HS 04/24/19 [History] PANTOPRAZOLE 40 mg Tablet [Protonix 40MG Tablet] 40 mg PO HS 04/24/19 [History] Tizanidine HCl 4 mg [Zanaflex 4 MG] 4 mg PO BID 04/24/19 [History] Rivaroxaban [Xarelto] 2.5 mg PO DAILY 11/15/19 [History] Hx Tetanus, Diphtheria Vaccination/Date Given: No Hx Influenza Vaccination/Date Given: Yes Hx Pneumococcal Vaccination/Date Given: No Travel Risk - International Travel Have you traveled outside of the country in past 3 weeks: No - Coronavirus Screening Are you exhibiting any of the following symptoms?: No Close contact with a COVID-19 positive Pt in past 14-21 Days: No - Review of Systems Constitutional: No Symptoms Eyes: No Symptoms Ears, Nose, & Throat: No Symptoms Respiratory: No Symptoms Cardiac: No Symptoms Abdominal/Gastrointestinal: No Symptoms Genitourinary Symptoms: No Symptoms Musculoskeletal: Back Pain, Neck Pain, Fall, Injury (Head) Neurological: No Symptoms Psychological: No Symptoms Endocrine: No Symptoms Hematologic/Lymphatic: No Symptoms Immunological/Allergic: No Symptoms All Other Systems: Reviewed and Negative - Past Medical History Pertinent Past Medical History: Yes Neurological History: No Pertinent History ENT History: No Pertinent History Cardiac History: Deep Vein Thrombosis Respiratory History: No Pertinent History Endocrine Medical History: No Pertinent History Musculoskeletal History: Arthritis, Fibromyalgia GI Medical History: No Pertinent History History: No Pertinent History Psycho-Social History: No Pertinent History Male Reproductive Disorders: No Pertinent History - Past Surgical History Past Surgical History: Yes Neuro Surgical History: No Pertinent History Cardiac: No Pertinent History Respiratory: No Pertinent History Gastrointestinal: Appendectomy Genitourinary: No Pertinent History Musculoskeletal: Orthopedic Surgery Male Surgical History: Prostate Surgery Other Surgical History: Tumors removed from back, manav filter placed, - Social History Smoking Status: Never smoker Exposure to second hand smoke: No Drug Use: none Patient Lives Alone: No - Nursing Vital Signs Nursing Vital Signs: Initial Vital Signs Temperature 97.5 F 11/15/19 22:31 Pulse Rate 66 11/15/19 22:31 Respiratory Rate 18 11/15/19 22:31 Blood Pressure 132/90 11/15/19 22:31 O2 Sat by Pulse Oximetry 99 11/15/19 22:31 Pain Scale Pain Intensity 8 - Dirk Coma Score Best Eye Response ([place]): (4) open spontaneously Best Verbal Response ([place]): (5) oriented Best Motor Response ([place]): (6) obeys commands [place] Total: 15 - Physical Exam General Appearance: mild distress, alert, anxiety Head Injury: no evidence of injury Eye Exam: PERRL/EOMI, eyes nml inspection ENT Exam: airway nml, nml ext.inspection, No evidence of ENT injury Neck Exam: supple, trachea midline, full range of motion, normal alignment, normal inspection, c-collar in place Respiratory/Chest Exam: normal breath sounds, No chest tenderness, No respiratory distress, No ecchymosis, No crepitus, No rhonchi, No wheezing Cardiovascular Exam: normal heart sounds, regular rate/rhythm, murmur, normal peripheral pulses Gastrointestinal Exam: soft, normal bowel sounds, No tenderness Rectal Exam: not done Back Exam: normal inspection, normal range of motion, No CVA tenderness, No vertebral tenderness Extremity Exam: normal inspection, normal range of motion Neurologic Exam: alert, oriented x 3, cooperative, 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 tested, normal mood/affect Skin Exam: normal color, warm, dry SpO2 Interpretation: normal O2 Delivery: Room Air - Course Nursing assessment & vital signs reviewed: Yes Ordered Tests: Active Orders 24 hr Category Date Time Status CERVICAL SPINE WO CONTRAST [CT] Stat Exams 11/15/19 22:44 Taken ELBOW (MINIMUM 3 VIEWS) Stat Exams 11/16/19 00:32 Taken HEAD WITHOUT CONTRAST [CT] Stat Exams 11/15/19 22:44 Taken LUMBAR SPINE W/O [CT] Stat Exams 11/15/19 22:44 Taken SHOULDER Stat Exams 11/16/19 00:05 Taken Medication Summary Discontinued Medications Generic Name Dose Route Start Last Admin Trade Name Freq PRN Reason Stop Dose Admin Hydrocodone Bitart/Acetaminophen 1 tab 11/16/19 01:25 Caroleen 5/325 Mg PO 11/16/19 01:26 STAT ONE Hydrocodone Bitart/Acetaminophen 2 tab 11/16/19 01:26 Caroleen 5/325 Mg PO 11/16/19 01:27 SENT HOME W/ PATIENT ONE - Progress Progress: improved, pain not gone completely, re-examined Progress Note: 11/16/19 00:29 CAT scan of the head shows no acute intracranial hemorrhage. There is no mass- effect is an enlarged third and lateral ventricle.? Possibility of communicating hydrocephalus. CAT scan of the cervical spine without contrast reveals no acute fracture of the cervical vertebral bodies no pathologic subluxation. CAT scan of the lumbar spine shows no acute lumbar spine fracture no subluxation 11/16/19 01:27 X-ray of right shoulder reveals no evidence of any acute fracture dislocation X-ray of right elbow reveals no evidence of any acute fracture or dislocation Counseled pt/family regarding: diagnosis, need for follow-up, rad results - Departure Departure Disposition: Home Clinical Impression: Fall with injury, Contusion Condition: Stable Critical Care Time: No Referrals: JAQUELIN FERNANDEZ MD [Primary Care Provider] - Additional Instructions: Follow-up with your primary care physician later today. Call for an appointment.
[2019-11-16 01:02] VITALS: O2SAT 97
[2019-11-16] MEDS ORDERED: NORCO 5/325 MG PO ONE ×2 (01:25→01:26)
[2019-11-16] MEDS ORDERED: NORCO 5/325 MG ONE (01:45)
[2019-11-16 02:09] VITALS: BP 102/84; PULSE 68
--- NOTE | 2019-11-16 09:04 | XRAY ---
Indication: Pain following fall. Comparison: None 3 view right elbow obtained. No bony, articular, or soft tissue abnormalities.
--- NOTE | 2019-11-16 09:04 | XRAY ---
Indication: Pain following fall. Comparison: None Portable 3 view right shoulder demonstrates mild AC degenerative arthropathy, tiny glenoid process subcortical cyst, and old 6-8 rib fractures. No other bony, articular, or soft tissue abnormalities.
--- NOTE | 2019-11-16 09:08 | XRAY ---
Indication: Head injury following fall. Multiple contiguous axial images obtained through the head without contrast. Comparison: None Age-appropriate global atrophy and mild periventricular degenerative micro-ischemia bilaterally. Left brain stem demonstrates 1 cm round focus of hypoattenuation either degenerative micro-ischemia versus old infarct . No acute intracranial hemorrhage, abnormal extra-axial fluid collection, or mass effect. Fourth ventricle is midline without hydrocephalus. Bony calvarium intact. A few subcentimeter bilateral maxillary sinus polyps/retention cysts. Mastoid air cells are clear. Impression: 1. Aging brain including atrophy and degenerative micro-ischemia. Brainstem hypodense lesion as detailed either degenerative micro-ischemia versus old infarct. MRI may yield further information if clinically warranted. 2. No acute intracranial abnormalities. 3. Bilaterally maxillary sinus polyps/retention cysts. Comment: Preliminary interpretation was made by [facility]. No critical discrepancy.
--- NOTE | 2019-11-16 09:12 | XRAY ---
Indication: Head injury following fall. Pain. Multiple contiguous axial images obtained through the head cervical spine. Sagittal and coronal reformatted images obtained. Comparison: None Axial images negative for acute fracture, suspicious bony lesions, or spinal canal stenosis. Minimal/mild multilevel anterior and posterior degree posterior endplate spurring. Broad-based disc osteophyte complex at the C6-7 level. Sagittal and coronal reformatted images demonstrates normal alignment. Minimal/mild C4-C6 disc space narrowing. No acute compression fracture, subluxation, or jumped facet. Normal appearing craniocervical junction. Visualized noncontrasted soft tissues including lung apices are unremarkable. CT head reported separately. Impression: 1. Negative acute fracture/subluxation. 2. Multilevel degenerative changes. C6-C7 broad-based disc osteophyte complex. Outpatient MRI may yield further information if clinically warranted. Comment: Preliminary interpretation was made by [facility]. No critical discrepancy.
--- NOTE | 2019-11-16 09:31 | XRAY ---
Indication: Low back pain following fall. Multiple contiguous axial images obtained through the lumbar spine. Sagittal and coronal reformatted images obtained. Comparison: None. Axial images negative for acute fracture or spinal canal stenosis. Old right L3 transverse process fracture, old nonunited right L4 transverse process fracture, and old right 12th rib fracture. Right L4 pedicle demonstrates 1 cm and left L5 pedicle demonstrates 4 mm ovoid sclerotic lesions. 4 mm sclerotic lesion seen of the left 11th rib and 9 mm sclerotic lesion seen of the left innominate bone. 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 Minimal L4-L5 degenerative vacuum disc phenomena. There are mild multilevel thoracolumbar bridging/nonbridging anterior endplate spurring. Sagittal and coronal reformatted images demonstrates normal lumbar alignment with vertebral body heights/disc spaces maintained. No acute compression fracture or subluxation. Visualized noncontrasted soft tissues demonstrates IVC filter in situ. Impression: 1. Negative acute fracture/subluxation. 2. Small sclerotic lesions involving left 11th rib, right L4 pedicle, left L5 pedicle, and left innominate bone. Rule out osteoblastic metastasis. 3. Old right L4/L5 transverse process and old right 12th rib fractures. Comment: Preliminary interpretation was made by [facility] who does not report multifocal sclerotic lesions.
== END 2019-11-16 02:30 | disposition home or self-care (01) ==
LOC: ED 22:21
DX: S00.93XA Contusion of unspecified part of head, initial encounter (principal); W01.198A Fall on same level from slipping, tripping and stumbling with subsequent striking against other object, initial encounter; Z91.81 History of falling; Y93.89 Activity, other specified; Y92.89 Other specified places as the place of occurrence of the external cause; R29.6 Repeated falls; M25.511 Pain in right shoulder; M25.521 Pain in right elbow; M54.5 Low back pain; Z86.718 Personal history of other venous thrombosis and embolism; Z79.01 Long term (current) use of anticoagulants; Z79.899 Other long term (current) drug therapy; M79.7 Fibromyalgia
CPT/HCPCS: 70450; 72125; 72131; 73030; 73080; 99284; A9270-GY

== ENCOUNTER 2020-06-29 14:53 | Emergency (ER) | payer MEDICARE ==
[2020-06-29 15:15] VITALS: BP 148/84; PULSE 68; O2SAT 90
[2020-06-29 15:22] LABS: Absolute Neutrophil Ct (ANC) 3.83 (1.4-6.9); Basophil (Absolute #) 0.06 (0-0.4); Eosinophil % 5.2 % (0.00-5.0); Eosinophil (Absolute #) 0.31 (0-0.5); Hematocrit 47.4 % (42-50); Hemoglobin 14.8 gm/dl (12.5-18.0); Lymphocyte (Absolute #) 0.69 (1.0-4.6); Lymphocytes % 11.6 % (24.0-44.0); Mean Cell Volume 105.8 fl (78-100); Mean Corpuscular Hgb Concent. 31.2 g/dl (32-36); Mean Platelet Volume 11.6 fl (7.5-11.0); Monocyte (Absolute #) 1.07 (0.0-1.3); Neutrophil % 64.2 % (36.0-66.0); Platelet Count 135 K/mm3 (150-450); Red Blood Count 4.48 M/mm3 (4.1-5.6); Red Cell Distribution Width 14.5 % (11.5-14.0)
[2020-06-29 15:36] LABS: ACETAMINOPHEN < 10 ug/ml (10-30); ALBUMIN 4.4 g/dL (3.5-5.0); ALKALINE PHOSPHATASE 61 U/L (38-126); ANION GAP 18.1 MEQ/L (5-15); BLOOD UREA NITROGEN 7 mg/dL (9-20); CHLORIDE 93 mmol/L (98-107); Calcium 8.6 mg/dL (8.4-10.2); Carbon Dioxide 24 mmol/L (22-30); Creatinine 1 0.75 mg/dL (0.66-1.25); Direct Bilirubin 0.1 mg/dL (0.0-0.4); EST GLOMERULAR FILTRATION RATE > 60.0 ML/MIN; Glucose 118 mg/dL (74-106); Potassium 4.6 mmol/L (3.5-5.1); SALICYLATE < 1.0 mg/dL (2-20); SGOT/AST 118 U/L (17-59); SGPT/ALT 123 U/L (0-50); SODIUM 130 mmol/L (137-145); Total Protein 7.2 g/dL (6.3-8.2)
[2020-06-29 15:48] LABS: Amourphous Crystal FEW /HPF (NEGATIVE); Appearance CLEAR (CLEAR); Bacteria RARE /HPF (NEGATIVE); Bilirubin NEGATIVE (NEGATIVE); Blood SMALL Ery/ul (0-5); Glucose NEGATIVE (NEGATIVE); Ketones NEGATIVE (NEGATIVE); Leukocyte Esterase TRACE (NEGATIVE); Nitrite POSITIVE (NEGATIVE); Protein,Urine Dip NEGATIVE (Negative); Specific Gravity 1.002 (1.005-1.025); Urobilinogen NEGATIVE mg/dL (0-1)
--- NOTE | 2020-06-29 15:56 | ERPHSYRPT ---
- History of Present Illness Source: patient Exam Limitations: no limitations Patient Subjective Stated Complaint: pt states that he quit drinking for 25 years and began drinking again 4 weeks ago and he needs help, states that he hasn't eaten in the past 2-3 days, reports being depressed and having anxiety and says that he needs something for it, pt is to see Dr. Fernandez tomorrow, reports only sleeping 30 minutes at a time for a very long time, pt fell and dislocated his left shoulder a week ago and is wearing a splint/sling for it Triage Nursing Assessment: Pt brought to the ER by his , taz mariano, pt states that he hasn't drank since around noon, reports not showering for awhile, states that his pain is from his shoulder that he dislocated last week, pulses normal, skin n/w/d, pt wants immediate relief from his anxiety and depression, Physician History: Patient is a 74-year-old male with history of depression that presents with alcohol intoxication and worsening depression. Patient was seen by his PCP who gave him samples of an antidepressant but states that it does not work. Patient had recently with his little over a month ago and he started drinking for 4 weeks now. He states he drinks about 12 beers a day. He wants to stop drinking. He feels his will not take him back if he continues to drink. He has had alcohol issues in the past. Patient has been sober for 25 years. Currently patient denies any issues except he wishes he could sleep. He has no suicidal or homicidal ideations. He is thinking of going to see his PCP in the morning but just cannot wait another day. Patient recently fell and dislocated shoulder and is currently wearing a sling and swath. Denies any other pains. He has no other complaints at this time. Timing/Duration: week(s) Severity of Symptoms-Max: moderate Severity of Symptoms-Current: moderate Context related to: spouse, other (Recent separation with his ) Associated Symptoms: anxiety, depressed, insomnia, No suicidal ideation Previous symptoms: same symptoms as today Allergies/Adverse Reactions: aspirin Allergy (Verified 06/29/20 15:15) cephalexin [From Keflex] Allergy (Verified 06/29/20 15:15) Penicillins Allergy (Verified 06/29/20 15:15) Home Medications: Alprazolam [Xanax] 0.5 mg PO BID 04/24/19 [History] Atorvastatin Calcium [Lipitor] 20 mg PO HS 04/24/19 [History] Duloxetine HCl 30 mg [Cymbalta 30 MG Capsule] 30 mg PO DAILY 04/24/19 [History] Duloxetine HCl [Cymbalta] 60 mg PO DAILY 04/24/19 [History] Nebivolol HCl 5 MG [Bystolic 5 MG] 10 mg PO HS 04/24/19 [History] PANTOPRAZOLE 40 mg Tablet [Protonix 40MG Tablet] 40 mg PO HS 04/24/19 [History] Tizanidine HCl 4 mg [Zanaflex 4 MG] 4 mg PO BID 04/24/19 [History] Rivaroxaban [Xarelto] 2.5 mg PO DAILY 11/15/19 [History] Hx Tetanus, Diphtheria Vaccination/Date Given: No Hx Influenza Vaccination/Date Given: Yes Hx Pneumococcal Vaccination/Date Given: No Travel Risk - International Travel Have you traveled outside of the country in past 3 weeks: No - Coronavirus Screening Are you exhibiting any of the following symptoms?: No Close contact with a COVID-19 positive Pt in past 14-21 Days: No - Past Medical History Pertinent Past Medical History: Yes Neurological History: No Pertinent History ENT History: No Pertinent History Cardiac History: Deep Vein Thrombosis Respiratory History: No Pertinent History Endocrine Medical History: No Pertinent History Musculoskeletal History: Arthritis, Fibromyalgia GI Medical History: No Pertinent History History: No Pertinent History Psycho-Social History: No Pertinent History Male Reproductive Disorders: No Pertinent History - Past Surgical History Past Surgical History: Yes Neuro Surgical History: No Pertinent History Cardiac: No Pertinent History Respiratory: No Pertinent History Gastrointestinal: Appendectomy Genitourinary: No Pertinent History Musculoskeletal: Orthopedic Surgery Male Surgical History: Prostate Surgery Other Surgical History: Tumors removed from back, manav filter placed, - Social History Smoking Status: Never smoker Exposure to second hand smoke: No Drug Use: none Patient Lives Alone: No - Review of Systems Constitutional: No Fever, No Chills Eyes: No Symptoms Ears, Nose, & Throat: No Symptoms Respiratory: No Cough, No Dyspnea Cardiac: No Chest Pain, No Edema, No Syncope Abdominal/Gastrointestinal: No Abdominal Pain, No Nausea, No Vomiting, No Diarrhea Genitourinary Symptoms: No Dysuria Musculoskeletal: Joint Pain, No Back Pain, No Neck Pain Skin: No Rash Neurological: No Dizziness, No Focal Weakness, No Sensory Changes Psychological: Alcohol Abuse, Anxiety, Depression, No Suicidal Ideations, No Homicidal Ideations Endocrine: No Symptoms All Other Systems: Reviewed and Negative - Nursing Vital Signs Nursing Vital Signs: Initial Vital Signs Temperature 98.1 F 06/29/20 15:01 Pulse Rate 68 06/29/20 15:01 Blood Pressure 148/84 06/29/20 15:01 O2 Sat by Pulse Oximetry 90 L 06/29/20 15:01 Pain Scale Pain Intensity 7 - Physical Exam General Appearance: mild distress Eyes, Ears, Nose, Throat Exam: normal ENT inspection, moist mucous membranes Neck Exam: normal inspection, non-tender, supple Respiratory Exam: normal breath sounds, lungs clear, No respiratory distress Cardiovascular Exam: regular rate/rhythm, No edema Gastrointestinal/Abdominal Exam: soft, No tenderness, No distention Extremities Exam: normal inspection, evidence of injury (Recent shoulder dislocation), No edema Current Suicidality: denies suicide plan Neurological Exam: 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, 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 tested, oriented x 3 Thoughts/Hallucinations: normal thought pattern, no apparent hallucination, auditory hallucinations Skin Exam: normal color, warm, dry, No rash SpO2 Interpretation: normal SpO2: 90 - Course Nursing assessment & vital signs reviewed: Yes Ordered Tests: Active Orders 24 hr Category Date Time Status ACETAMINOPHEN Stat Lab 06/29/20 15:15 Completed BMP Stat Lab 06/29/20 15:15 Completed CBC W DIFF Stat Lab 06/29/20 15:15 Completed CULTURE,URINE Stat Lab 06/29/20 15:43 Received ETHYL ALCOHOL Stat Lab 06/29/20 15:15 Completed Hepatic Function Panel Stat Lab 06/29/20 15:15 Completed SALICYLATE Stat Lab 06/29/20 15:15 Completed TSH [TSH, 3RD Generation] Stat Lab 06/29/20 15:15 Completed UA W/RFX UR CULTURE Stat Lab 06/29/20 15:43 Completed Urine Triage Profile Stat Lab 06/29/20 15:43 Completed Lab/Rad Data: Laboratory Result Diagrams 06/29/20 15:15 06/29/20 15:15 Laboratory Results 03/21/21 03/21/21 03/21/21 Range/Units 15:43 15:43 15:15 WBC (4.0-10.5) K/mm3 RBC (4.1-5.6) M/mm3 Hgb (12.5-18.0) gm/dl Hct (42-50) % MCV (78-100) fl MCH (26-32) pg MCHC (32-36) g/dl RDW (11.5-14.0) % Plt Count (150-450) K/mm3 MPV (7.5-11.0) fl Gran % (36.0-66.0) % Eos # (Auto) (0-0.5) Absolute Lymphs (auto) (1.0-4.6) Absolute Monos (auto) (0.0-1.3) Lymphocytes % (24.0-44.0) % Monocytes % (0.0-12.0) % Eosinophils % (0.00-5.0) % Basophils % (0.0-0.4) % Absolute Granulocytes (1.4-6.9) Basophils # (0-0.4) Sodium (137-145) mmol/L Potassium (3.5-5.1) mmol/L Chloride (98-107) mmol/L Carbon Dioxide (22-30) mmol/L Anion Gap (5-15) MEQ/L BUN (9-20) mg/dL Creatinine (0.66-1.25) mg/dL Estimated GFR ML/MIN Glucose (74-106) mg/dL Calcium (8.4-10.2) mg/dL Total Bilirubin (0.2-1.3) mg/dL Direct Bilirubin (0.0-0.4) mg/dL AST (17-59) U/L ALT (0-50) U/L Alkaline Phosphatase (38-126) U/L Serum Total Protein (6.3-8.2) g/dL Albumin (3.5-5.0) g/dL TSH 3rd Generation 1.280 (0.47-4.68) mIU/L Urine Color STRAW (YELLOW) Urine Appearance CLEAR (CLEAR) Urine pH 6.0 (5-6) Ur Specific [place] 1.002 (1.005-1.025) Urine Protein NEGATIVE (Negative) Urine Ketones NEGATIVE (NEGATIVE) Urine Blood SMALL (0-5) You/ul Urine Nitrite POSITIVE (NEGATIVE) Urine Bilirubin NEGATIVE (NEGATIVE) Urine Urobilinogen NEGATIVE (0-1) mg/dL Ur Leukocyte Esterase TRACE (NEGATIVE) Urine WBC (Auto) 3-5 (0-5) /HPF Urine RBC (Auto) NONE (0-2) /HPF U Epithel Cells (Auto) NONE (FEW) /HPF Urine Bacteria (Auto) RARE (NEGATIVE) /HPF Amorphous Crystals FEW (NEGATIVE) /HPF Urine Culture Reflexed YES (NO) Urine Glucose NEGATIVE (NEGATIVE) mg/dL Salicylates (2-20) mg/dL Urine Opiates Level POSITIVE (NEGATIVE) Ur Methadone NEGATIVE (NEGATIVE) Acetaminophen (10-30) ug/ml Urine Barbiturates NEGATIVE (NEGATIVE) Ur Phencyclidine (PCP) NEGATIVE (NEGATIVE) Urine Amphetamine NEGATIVE (NEGATIVE) U Benzodiazepine Level POSITIVE (NEGATIVE) Urine Cocaine NEGATIVE (NEGATIVE) Urine Marijuana (THC) NEGATIVE (NEGATIVE) Ethyl Alcohol (0-10) mg/dL 06/29/20 06/29/20 06/29/20 Range/Units 15:15 15:15 15:15 WBC 6.0 (4.0-10.5) K/mm3 RBC 4.48 (4.1-5.6) M/mm3 Hgb 14.8 (12.5-18.0) gm/dl Hct 47.4 (42-50) % MCV 105.8 H (78-100) fl MCH 33.0 H (26-32) pg MCHC 31.2 L (32-36) g/dl RDW 14.5 H (11.5-14.0) % Plt Count 135 L (150-450) K/mm3 MPV 11.6 H (7.5-11.0) fl Gran % 64.2 (36.0-66.0) % Eos # (Auto) 0.31 (0-0.5) Absolute Lymphs (auto) 0.69 L (1.0-4.6) Absolute Monos (auto) 1.07 (0.0-1.3) Lymphocytes % 11.6 L (24.0-44.0) % Monocytes % 18.0 H (0.0-12.0) % Eosinophils % 5.2 H (0.00-5.0) % Basophils % 1.0 (0.0-0.4) % Absolute Granulocytes 3.83 (1.4-6.9) Basophils # 0.06 (0-0.4) Sodium 130 L (137-145) mmol/L Potassium 4.6 (3.5-5.1) mmol/L Chloride 93 L (98-107) mmol/L Carbon Dioxide 24 (22-30) mmol/L Anion Gap 18.1 H (5-15) MEQ/L BUN 7 L (9-20) mg/dL Creatinine 0.75 (0.66-1.25) mg/dL Estimated GFR > 60.0 ML/MIN Glucose 118 H (74-106) mg/dL Calcium 8.6 (8.4-10.2) mg/dL Total Bilirubin 0.50 (0.2-1.3) mg/dL Direct Bilirubin 0.1 (0.0-0.4) mg/dL AST 118 H (17-59) U/L ALT 123 H (0-50) U/L Alkaline Phosphatase 61 (38-126) U/L Serum Total Protein 7.2 (6.3-8.2) g/dL Albumin 4.4 (3.5-5.0) g/dL TSH 3rd Generation (0.47-4.68) mIU/L Urine Color (YELLOW) Urine Appearance (CLEAR) Urine pH (5-6) Ur Specific [place] (1.005-1.025) Urine Protein (Negative) Urine Ketones (NEGATIVE) Urine Blood (0-5) You/ul Urine Nitrite (NEGATIVE) Urine Bilirubin (NEGATIVE) Urine Urobilinogen (0-1) mg/dL Ur Leukocyte Esterase (NEGATIVE) Urine WBC (Auto) (0-5) /HPF Urine RBC (Auto) (0-2) /HPF U Epithel Cells (Auto) (FEW) /HPF Urine Bacteria (Auto) (NEGATIVE) /HPF Amorphous Crystals (NEGATIVE) /HPF Urine Culture Reflexed (NO) Urine Glucose (NEGATIVE) mg/dL Salicylates < 1.0 L (2-20) mg/dL Urine Opiates Level (NEGATIVE) Ur Methadone (NEGATIVE) Acetaminophen < 10 L (10-30) ug/ml Urine Barbiturates (NEGATIVE) Ur Phencyclidine (PCP) (NEGATIVE) Urine Amphetamine (NEGATIVE) U Benzodiazepine Level (NEGATIVE) Urine Cocaine (NEGATIVE) Urine Marijuana (THC) (NEGATIVE) Ethyl Alcohol 161 H (0-10) mg/dL - Progress Progress: improved Progress Note: 06/29/20 16:48 Work-up for substance abuse, alcohol level and TSH. Labs are negative. Patient really wanting some antianxiety medicine since he ran out 2 days ago. It appears to be still in his system. Given patient's anxiety here, will give few pills to time over. He will follow-up with his PCP in the morning for further care. Patient is not suicidal homicidal and he has not been drinking long enough that I feel he will go into any withdrawal. I do not feel that patient wants detox as he basically wants to get some rest and allow his PCP to determine if he should get more antianxiety medicine. Patient okay with disposition. Will discharge home. Counseled pt/family regarding: drug and/or alcohol abuse, lab results, diagnosis, need for follow-up - Departure Departure Disposition: Home Clinical Impression: Anxiety and depression Condition: Stable Critical Care Time: No Referrals: JAQUELIN FERNANDEZ MD [Primary Care Provider] - Instructions: Generalized Anxiety Disorder Additional Instructions: Monitor symptoms closely. Take medication as needed. Please follow-up with your PCP in the morning for further management. Stop drinking alcohol. Drink plenty of water. Return to ER if worse. Prescriptions: Alprazolam 0.25 mg [xanAX 0.25 MG] 0.25 mg PO Q6H PRN PRN #4 tablet PRN Reason: Anxiety
[2020-06-29 16:00] LABS: Amphetamine,Urine NEGATIVE (NEGATIVE); Barbiturate,Urine NEGATIVE (NEGATIVE); Benzodiazepine,Urine POSITIVE (NEGATIVE); Cocaine,Urine NEGATIVE (NEGATIVE); Methadone,Urine NEGATIVE (NEGATIVE); Opiate,Urine POSITIVE (NEGATIVE); PCP,Urine NEGATIVE (NEGATIVE); THC,Urine NEGATIVE (NEGATIVE)
== END 2020-06-29 16:53 | disposition home or self-care (01) ==
LOC: ED 14:53
DX: F41.8 Other specified anxiety disorders (principal); Z79.899 Other long term (current) drug therapy
CPT/HCPCS: 36415; 80048; 80076; 80307; 81001; 84443; 85025; 87077; 87086; 87186; 99283; G0480

== ENCOUNTER 2021-02-09 15:16 | Observation (INO) | payer MEDICARE ==
[2021-02-09] MEDS ORDERED: HUMALOG SQ PRN (18:16)
[2021-02-09 19:13] LABS: BASOPHIL % 0.6 % (0.0-0.4); Basophil (Absolute #) 0.05 (0-0.4); Eosinophil % 5.1 % (0.00-5.0); Hemoglobin 14.5 gm/dl (12.5-18.0); Lymphocyte (Absolute #) 1.03 (1.0-4.6); Lymphocytes % 13.2 % (24.0-44.0); Mean Cell Volume 102.9 fl (78-100); Mean Corpuscular Hemoglobin 32.4 pg (26-32); Mean Corpuscular Hgb Concent. 31.5 g/dl (32-36); Monocyte (Absolute #) 1.03 (0.0-1.3); Monocytes % 13.2 % (0.0-12.0); Neutrophil % 67.9 % (36.0-66.0); Platelet Count 120 K/mm3 (150-450); Red Blood Count 4.47 M/mm3 (4.1-5.6); Red Cell Distribution Width 14.6 % (11.5-14.0); White Blood Count 7.8 K/mm3 (4.0-10.5)
[2021-02-09 19:44] LABS: ALBUMIN 4.4 g/dL (3.5-5.0); ALKALINE PHOSPHATASE 61 U/L (38-126); ANION GAP 16.7 MEQ/L (5-15); BLOOD UREA NITROGEN 7 mg/dL (9-20); CHLORIDE 93 mmol/L (98-107); Calcium 8.7 mg/dL (8.4-10.2); Carbon Dioxide 22 mmol/L (22-30); Creatinine 1 0.73 mg/dL (0.66-1.25); EST GLOMERULAR FILTRATION RATE > 60.0 ML/MIN; Glucose 91 mg/dL (74-106); PREALBUMIN 24.23 mg/dL (17.6-36.0); Potassium 4.6 mmol/L (3.5-5.1); SGOT/AST 55 U/L (17-59); SGPT/ALT 53 U/L (0-50); SODIUM 126 mmol/L (137-145); TROPONIN < 0.012 ng/mL (0.000-0.034); Total Protein 7.2 g/dL (6.3-8.2)
[2021-02-09] MEDS: xanAX 0.5 MG PO SCH (21:12)
[2021-02-09] MEDS: MAG-OX 400 PO SCH (21:12)
[2021-02-09] MEDS: celeBREX 100 MG PO SCH (21:12)
[2021-02-09] MEDS: Bystolic 5 MG PO SCH (21:12)
[2021-02-09] MEDS: TYLENOL 325 MG PO PRN (21:13)
[2021-02-09] MEDS: Sodium Chloride 0.9% 1000 ML 1,000 ML IV SCH (21:37)
[2021-02-10 02:58] LABS: Appearance SLIGHTLY CLOUDY (CLEAR); Bacteria MODERATE /HPF (NEGATIVE); Bilirubin NEGATIVE (NEGATIVE); Blood SMALL Ery/ul (0-5); Glucose NEGATIVE (NEGATIVE); Ketones TRACE (NEGATIVE); Leukocyte Esterase MODERATE (NEGATIVE); Nitrite NEGATIVE (NEGATIVE); Protein,Urine Dip NEGATIVE (Negative); Specific Gravity 1.003 (1.005-1.025); Urobilinogen NEGATIVE mg/dL (0-1)
[2021-02-10 03:01] LABS: Amphetamine,Urine NEGATIVE (NEGATIVE); Barbiturate,Urine NEGATIVE (NEGATIVE); Benzodiazepine,Urine POSITIVE (NEGATIVE); Cocaine,Urine NEGATIVE (NEGATIVE); Methadone,Urine NEGATIVE (NEGATIVE); Opiate,Urine NEGATIVE (NEGATIVE); PCP,Urine NEGATIVE (NEGATIVE); THC,Urine NEGATIVE (NEGATIVE)
[2021-02-10] MEDS ORDERED: MEDICATION INTERVENTION MC SCH (07:30)
[2021-02-10] MEDS: Sodium Chloride 0.9% 1000 ML 1,000 ML IV SCH ×2 (07:43→16:54)
[2021-02-10] MEDS: Zofran 4 MG/2 ML VIAL IV PRN ×2 (07:44→13:50)
[2021-02-10] MEDS: FOLATE 1 MG PO SCH (09:10)
[2021-02-10] MEDS: Cymbalta 30 MG Capsule PO SCH (09:10)
[2021-02-10] MEDS: xanAX 0.5 MG PO SCH ×2 (09:11→22:30)
[2021-02-10] MEDS: celeBREX 100 MG PO SCH ×2 (09:11→22:30)
[2021-02-10] MEDS: Levofloxacin 500MG/100ML D5W 500 MG/100 ML BAG IV SCH (09:14)
[2021-02-10] MEDS: Ativan 2 MG/1 ML VIAL IV PRN ×7 (09:27→22:36)
[2021-02-10] MEDS ORDERED: NON-FORMULARY ITEM (Vortioxetine Hydrobromide [Trintellix] 10 MG Tablet) PO SCH (10:00)
[2021-02-10] MEDS ORDERED: RIVAROXABAN PO SCH (10:00)
[2021-02-10] MEDS ORDERED: NON-FORMULARY ITEM (Duloxetine Hcl [Cymbalta] 60 MG Capsule.Dr) PO SCH (10:00)
[2021-02-10] MEDS: Pepcid 20 MG VIAL IV SCH ×2 (13:16→22:30)
[2021-02-10] MEDS: XARELTO 10 MG TABLET PO SCH (16:54)
--- NOTE | 2021-02-10 18:23 | PCM.NOTE ---
Date and Time: 02/10/211819 Subjective Assessment: c/o weakness. c/o feeling very depressed. - Review of Systems Constitutional: No Fever, No Chills Eyes: No Symptoms Ears, Nose, & Throat: No Symptoms Respiratory: No Cough, No Short Of Breath Cardiac: No Chest Pain, No Edema, No Syncope Abdominal/Gastrointestinal: Abdominal Pain, No Nausea, No Vomiting, No Diarrhea Genitourinary Symptoms: No Dysuria Musculoskeletal: No Back Pain, No Neck Pain Skin: No Rash Neurological: No Dizziness, No Focal Weakness, No Sensory Changes Psychological: Alcohol Abuse, Anxiety, Depression, Emotional Lability, Mood Changes Endocrine: No Symptoms Hematologic/Lymphatic: No Symptoms Immunological/Allergic: No Symptoms Objective Exam General Appearance: no apparent distress, alert Neurologic Exam: alert, oriented x 3, cooperative, normal mood/affect, nml cerebellar function, sensation nml, depressed mood/affect, No motor deficits Skin Exam: normal color, warm, dry Eye Exam: PERRL, EOMI, eyes nml inspection Ears, Nose, Throat Exam: normal ENT inspection, pharynx normal, moist mucous membranes Neck Exam: normal inspection, non-tender, supple, full range of motion Respiratory Exam: normal breath sounds, lungs clear, No respiratory distress Cardiovascular Exam: regular rate/rhythm, normal heart sounds Gastrointestinal/Abdomen Exam: soft, No tenderness, No mass Extremity Exam: normal inspection, normal range of motion Back Exam: normal inspection, normal range of motion, No CVA tenderness, No vertebral tenderness Male Genitalia Exam: deferred Rectal Exam: deferred OBJECTIVE DATA Vital Signs: Vital Signs - 24 hr Temp Pulse Resp BP BP Pulse Ox 02/10/21 16:00 97.8 F 59 L 17 146/71 97 02/10/21 14:41 72 18 02/10/21 13:00 97.5 F 66 15 126/79 95 02/10/21 12:00 21 02/10/21 09:27 94 H 21 162/73 02/10/21 08:00 1 L 02/10/21 07:42 97.4 F 56 L 21 162/73 94 L 02/10/21 06:45 93 L 02/10/21 04:48 96.1 F 52 L 16 136/70 95 02/10/21 04:00 18 02/10/21 00:00 16 11/01/21 23:59 98.1 F 65 16 138/71 93 L 02/09/21 23:31 92 L 02/09/21 20:00 18 02/09/21 19:26 97.7 F 70 16 180/92 98 Pain Assessment - Last Documented Pain Intensity 2 Pain Scale Used 0-10 Pain Scale Intake and Output: Intake & Output 02/08/21 02/09/21 02/10/21 02/11/21 11:59 11:59 11:59 11:59 Intake Total 900 1852 Output Total 75 Balance 825 1852 Weight 107.1 kg Lab Results: Lab Results-Last 24 Hours 02/09/21 02/09/21 02/09/21 Range/Units 02:45 18:16 18:16 WBC 7.8 (4.0-10.5) K/mm3 RBC 4.47 (4.1-5.6) M/mm3 Hgb 14.5 (12.5-18.0) gm/dl Hct 46.0 (42-50) % MCV 102.9 H (78-100) fl MCH 32.4 H (26-32) pg MCHC 31.5 L (32-36) g/dl RDW 14.6 H (11.5-14.0) % Plt Count 120 L (150-450) K/mm3 MPV 12.0 H (7.5-11.0) fl Gran % 67.9 H (36.0-66.0) % Eos # (Auto) 0.40 (0-0.5) Absolute Lymphs (auto) 1.03 (1.0-4.6) Absolute Monos (auto) 1.03 (0.0-1.3) Lymphocytes % 13.2 L (24.0-44.0) % Monocytes % 13.2 H (0.0-12.0) % Eosinophils % 5.1 H (0.00-5.0) % Basophils % 0.6 (0.0-0.4) % Absolute Granulocytes 5.30 (1.4-6.9) Basophils # 0.05 (0-0.4) Sodium 126 L (137-145) mmol/L Potassium 4.6 (3.5-5.1) mmol/L Chloride 93 L (98-107) mmol/L Carbon Dioxide 22 (22-30) mmol/L Anion Gap 16.7 H (5-15) MEQ/L BUN 7 L (9-20) mg/dL Creatinine 0.73 (0.66-1.25) mg/dL Estimated GFR > 60.0 ML/MIN Glucose 91 (74-106) mg/dL POC Glucometer (74 to 106) mg/dL Calcium 8.7 (8.4-10.2) mg/dL Total Bilirubin 0.90 (0.2-1.3) mg/dL AST 55 (17-59) U/L ALT 53 H (0-50) U/L Alkaline Phosphatase 61 (38-126) U/L Troponin I < 0.012 (0.000-0.034) ng/mL Serum Total Protein 7.2 (6.3-8.2) g/dL Albumin 4.4 (3.5-5.0) g/dL Prealbumin 24.23 (17.6-36.0) mg/dL Urine Color (YELLOW) Urine Appearance (CLEAR) Urine pH (5-6) Ur Specific [place] (1.005-1.025) Urine Protein (Negative) Urine Ketones (NEGATIVE) Urine Blood (0-5) You/ul Urine Nitrite (NEGATIVE) Urine Bilirubin (NEGATIVE) Urine Urobilinogen (0-1) mg/dL Ur Leukocyte Esterase (NEGATIVE) Urine WBC (Auto) (0-5) /HPF Urine RBC (Auto) (0-2) /HPF Urine Bacteria (Auto) (NEGATIVE) /HPF Urine Culture Reflexed (NO) Urine Glucose (NEGATIVE) mg/dL Urine Opiates Level NEGATIVE (NEGATIVE) Ur Methadone NEGATIVE (NEGATIVE) Urine Barbiturates NEGATIVE (NEGATIVE) Ur Phencyclidine (PCP) NEGATIVE (NEGATIVE) Urine Amphetamine NEGATIVE (NEGATIVE) U Benzodiazepine Level POSITIVE (NEGATIVE) Urine Cocaine NEGATIVE (NEGATIVE) Urine Marijuana (THC) NEGATIVE (NEGATIVE) Ethyl Alcohol (0-10) mg/dL 02/09/21 02/09/21 02/10/21 Range/Units 19:00 22:20 02:58 WBC (4.0-10.5) K/mm3 RBC (4.1-5.6) M/mm3 Hgb (12.5-18.0) gm/dl Hct (42-50) % MCV (78-100) fl MCH (26-32) pg MCHC (32-36) g/dl RDW (11.5-14.0) % Plt Count (150-450) K/mm3 MPV (7.5-11.0) fl Gran % (36.0-66.0) % Eos # (Auto) (0-0.5) Absolute Lymphs (auto) (1.0-4.6) Absolute Monos (auto) (0.0-1.3) Lymphocytes % (24.0-44.0) % Monocytes % (0.0-12.0) % Eosinophils % (0.00-5.0) % Basophils % (0.0-0.4) % Absolute Granulocytes (1.4-6.9) Basophils # (0-0.4) Sodium (137-145) mmol/L Potassium (3.5-5.1) mmol/L Chloride (98-107) mmol/L Carbon Dioxide (22-30) mmol/L Anion Gap (5-15) MEQ/L BUN (9-20) mg/dL Creatinine (0.66-1.25) mg/dL Estimated GFR ML/MIN Glucose (74-106) mg/dL POC Glucometer 103 (74 to 106) mg/dL Calcium (8.4-10.2) mg/dL Total Bilirubin (0.2-1.3) mg/dL AST (17-59) U/L ALT (0-50) U/L Alkaline Phosphatase (38-126) U/L Troponin I (0.000-0.034) ng/mL Serum Total Protein (6.3-8.2) g/dL Albumin (3.5-5.0) g/dL Prealbumin (17.6-36.0) mg/dL Urine Color YELLOW (YELLOW) Urine Appearance SLIGHTLY CLOUDY (CLEAR) Urine pH 6.0 (5-6) Ur Specific [place] 1.003 (1.005-1.025) Urine Protein NEGATIVE (Negative) Urine Ketones TRACE (NEGATIVE) Urine Blood SMALL (0-5) You/ul Urine Nitrite NEGATIVE (NEGATIVE) Urine Bilirubin NEGATIVE (NEGATIVE) Urine Urobilinogen NEGATIVE (0-1) mg/dL Ur Leukocyte Esterase MODERATE (NEGATIVE) Urine WBC (Auto) 16-25 (0-5) /HPF Urine RBC (Auto) 3-5 (0-2) /HPF Urine Bacteria (Auto) MODERATE (NEGATIVE) /HPF Urine Culture Reflexed YES (NO) Urine Glucose NEGATIVE (NEGATIVE) mg/dL Urine Opiates Level (NEGATIVE) Ur Methadone (NEGATIVE) Urine Barbiturates (NEGATIVE) Ur Phencyclidine (PCP) (NEGATIVE) Urine Amphetamine (NEGATIVE) U Benzodiazepine Level (NEGATIVE) Urine Cocaine (NEGATIVE) Urine Marijuana (THC) (NEGATIVE) Ethyl Alcohol 55 H (0-10) mg/dL 02/10/21 Range/Units 07:29 WBC (4.0-10.5) K/mm3 RBC (4.1-5.6) M/mm3 Hgb (12.5-18.0) gm/dl Hct (42-50) % MCV (78-100) fl MCH (26-32) pg MCHC (32-36) g/dl RDW (11.5-14.0) % Plt Count (150-450) K/mm3 MPV (7.5-11.0) fl Gran % (36.0-66.0) % Eos # (Auto) (0-0.5) Absolute Lymphs (auto) (1.0-4.6) Absolute Monos (auto) (0.0-1.3) Lymphocytes % (24.0-44.0) % Monocytes % (0.0-12.0) % Eosinophils % (0.00-5.0) % Basophils % (0.0-0.4) % Absolute Granulocytes (1.4-6.9) Basophils # (0-0.4) Sodium (137-145) mmol/L Potassium (3.5-5.1) mmol/L Chloride (98-107) mmol/L Carbon Dioxide (22-30) mmol/L Anion Gap (5-15) MEQ/L BUN (9-20) mg/dL Creatinine (0.66-1.25) mg/dL Estimated GFR ML/MIN Glucose (74-106) mg/dL POC Glucometer 95 (74 to 106) mg/dL Calcium (8.4-10.2) mg/dL Total Bilirubin (0.2-1.3) mg/dL AST (17-59) U/L ALT (0-50) U/L Alkaline Phosphatase (38-126) U/L Troponin I (0.000-0.034) ng/mL Serum Total Protein (6.3-8.2) g/dL Albumin (3.5-5.0) g/dL Prealbumin (17.6-36.0) mg/dL Urine Color (YELLOW) Urine Appearance (CLEAR) Urine pH (5-6) Ur Specific [place] (1.005-1.025) Urine Protein (Negative) Urine Ketones (NEGATIVE) Urine Blood (0-5) You/ul Urine Nitrite (NEGATIVE) Urine Bilirubin (NEGATIVE) Urine Urobilinogen (0-1) mg/dL Ur Leukocyte Esterase (NEGATIVE) Urine WBC (Auto) (0-5) /HPF Urine RBC (Auto) (0-2) /HPF Urine Bacteria (Auto) (NEGATIVE) /HPF Urine Culture Reflexed (NO) Urine Glucose (NEGATIVE) mg/dL Urine Opiates Level (NEGATIVE) Ur Methadone (NEGATIVE) Urine Barbiturates (NEGATIVE) Ur Phencyclidine (PCP) (NEGATIVE) Urine Amphetamine (NEGATIVE) U Benzodiazepine Level (NEGATIVE) Urine Cocaine (NEGATIVE) Urine Marijuana (THC) (NEGATIVE) Ethyl Alcohol (0-10) mg/dL Multi-Disciplinary Progress Notes: Multi-Disciplinary Progress Notes 02/10/21 12:18 Case Management Note by NinfaPau REPORTS SHE HELPS PATIENT WITH "EVERYTHING FROM THE WAIST DOWN" AND "SHE JUST CAN'T DO IT ANYMORE". SHE WOULD LIKE PATIENT TO GO TO REHAB. I AGAIN DISCUSSED THIS WITH PATIENT. HE STATED IF HE HAS TO STAY OVERNIGHT- HE REFUSES. WE AGAIN DISCUSSED HHC BUT HIS STATED HE IS MOBILE AND IS FREQUENTLY OUT OF THE HOUSE. PATIENT REFUSED TO STAY HOME FOR SHORT TERM SO HHC COULD ASSIST Initialized on 02/10/21 12:18 - END OF NOTE Assessment/Plan (1) Pyelonephritis due to Escherichia coli Current Visit: Yes Status: Acute Assessment & Plan: Chief Complaint Diagnosis acute pyelonephritis Allergies Allergy/AdvReac Type Severity Reaction Status Date / Time aspirin Allergy Verified 06/29/20 15:15 cephalexin [From Keflex] Allergy Verified 06/29/20 15:15 Penicillins Allergy Verified 06/29/20 15:15 Vital Signs (Last 24 hours) Temp Pulse Resp BP BP Pulse Ox 02/10/21 16:00 97.8 F 59 L 17 146/71 97 02/10/21 14:41 72 18 02/10/21 13:00 97.5 F 66 15 126/79 95 02/10/21 12:00 21 02/10/21 09:27 94 H 21 162/73 02/10/21 08:00 1 L 02/10/21 07:42 97.4 F 56 L 21 162/73 94 L 02/10/21 06:45 93 L 02/10/21 04:48 96.1 F 52 L 16 136/70 95 02/10/21 04:00 18 02/10/21 00:00 16 02/09/21 23:59 98.1 F 65 16 138/71 93 L 02/09/21 23:31 92 L 02/09/21 20:00 18 02/09/21 19:26 97.7 F 70 16 180/92 98 Home Medications Medication Instructions Recorded Confirmed Last Taken Type Celecoxib 100 mg [celeBREX 100 100 mg PO BID 02/09/21 02/09/21 02/08/21 History MG] Magnesium Oxide [Magnesium] 500 mg PO HS 02/09/21 02/09/21 Unknown History Vortioxetine Hydrobromide 10 mg PO DAILY 02/09/21 02/09/21 02/08/21 History [Brintellix] Current Medications Generic Name Dose Route Start Last Admin Trade Name Freq PRN Reason Stop Dose Admin Acetaminophen 650 mg 02/09/21 21:04 02/09/21 21:13 Acetaminophen 325 Mg Tablet PO 03/11/21 21:03 650 mg Q4H PRN PRN Administration PAIN AND/OR FEVER Alprazolam 0.5 mg 02/09/21 22:00 02/10/21 09:11 Alprazolam 0.5 Mg Tablet PO 03/11/21 21:59 0.5 mg BID JACQUELIN Administration Celecoxib 100 mg 02/09/21 22:00 02/10/21 09:11 Celecoxib 100 Mg Capsule PO 03/11/21 21:59 100 mg BID JACQUELIN Administration Duloxetine HCl 90 mg 02/10/21 10:00 02/10/21 09:10 Duloxetine Hcl 30 Mg Cap PO 03/12/21 09:59 90 mg DAILY JACQUELIN Administration Famotidine 20 mg 02/10/21 13:00 02/10/21 13:16 Famotidine 20 Mg/1 Vial IV 03/12/21 12:59 20 mg Q12HT JACQUELIN Administration Folic Acid 1 mg 02/10/21 10:00 02/10/21 09:10 Folic Acid 1 Mg Tablet PO 03/12/21 09:59 1 mg DAILY JACQUELIN Administration Sodium Chloride 1,000 mls @ 100 mls/hr 02/09/21 18:30 02/10/21 16:54 Sodium Chloride 0.9% 1000 Ml IV 03/11/21 18:29 100 mls/hr .Q10H JACQUELIN Administration Levofloxacin/Dextrose 500 mg in 100 mls @ 100 mls/hr 02/10/21 10:00 02/10/21 09:14 Levofloxacin 500mg/100ml D5w IV 03/12/21 09:59 100 mls/hr Q24H10 JACQUELIN Administration Insulin Human Lispro 0 unit 02/09/21 18:16 Insulin Lispro 1 Unit SQ 03/11/21 18:15 UD PRN HYPERGLYCEMIA Lorazepam 0 mg 02/09/21 18:16 02/10/21 17:06 Lorazepam 2 Mg/1 Ml 2 Mg Vial IV 03/11/21 18:15 2 mg Q2-4HPRN PRN Administration AGITATION Magnesium Oxide 400 mg 02/09/21 22:00 02/09/21 21:12 Magnesium Oxide 400 Mg Tablet PO 03/11/21 21:59 400 mg HS JACQUELIN Administration Miscellaneous Information 1 each 02/10/21 07:30 Medication Intervention 1 Each Each 03/12/21 07:29 .RN TO CHECK WITH PT JACQUELIN Nebivolol 10 mg 02/09/21 22:00 02/09/21 21:12 Nebivolol Hcl 5 Mg Tablet PO 03/11/21 21:59 10 mg HS JACQUELIN Administration Ondansetron HCl 4 mg 02/09/21 18:16 02/10/21 13:50 Ondansetron Hcl 4 Mg/2 Ml Vial IV 03/11/21 18:15 4 mg Q6H PRN PRN Administration NAUSEA/VOMITING Rivaroxaban 2.5 mg 02/10/21 18:00 02/10/21 16:54 Rivaroxaban 10 Mg Tablet PO 03/12/21 17:59 2.5 mg DAILY@1800 JACQUELIN Administration Intake & Output (Last 24 hours) 02/08/21 02/09/21 02/10/21 02/11/21 11:59 11:59 11:59 11:59 Intake Total 900 1852 Output Total 75 Balance 825 1852 Weight 107.1 kg Microbiology Results (Last 24 hours) 02/10/21 02:58 Clean Catch Midstream Urine Culture - Pending Laboratory Results (Last 24 hours) 02/10/21 02/10/21 02/09/21 07:29 02:58 22:20 WBC RBC Hgb Hct MCV MCH MCHC RDW Plt Count MPV Gran % Eos # (Auto) Absolute Lymphs (auto) Absolute Monos (auto) Lymphocytes % Monocytes % Eosinophils % Basophils % Absolute Granulocytes Basophils # Sodium Potassium Chloride Carbon Dioxide Anion Gap BUN Creatinine Estimated GFR Glucose POC Glucometer 95 103 Calcium Total Bilirubin AST ALT Alkaline Phosphatase Troponin I Serum Total Protein Albumin Prealbumin Urine Color YELLOW Urine Appearance SLIGHTLY CLOUDY Urine pH 6.0 Ur Specific [place] 1.003 Urine Protein NEGATIVE Urine Ketones TRACE Urine Blood SMALL Urine Nitrite NEGATIVE Urine Bilirubin NEGATIVE Urine Urobilinogen NEGATIVE Ur Leukocyte Esterase MODERATE Urine WBC (Auto) 16-25 Urine RBC (Auto) 3-5 Urine Bacteria (Auto) MODERATE Urine Culture Reflexed YES Urine Glucose NEGATIVE Urine Opiates Level Ur Methadone Urine Barbiturates Ur Phencyclidine (PCP) Urine Amphetamine U Benzodiazepine Level Urine Cocaine Urine Marijuana (THC) Ethyl Alcohol 02/09/21 02/09/21 02/09/21 19:00 18:16 18:16 WBC 7.8 RBC 4.47 Hgb 14.5 Hct 46.0 MCV 102.9 H MCH 32.4 H MCHC 31.5 L RDW 14.6 H Plt Count 120 L MPV 12.0 H Gran % 67.9 H Eos # (Auto) 0.40 Absolute Lymphs (auto) 1.03 Absolute Monos (auto) 1.03 Lymphocytes % 13.2 L Monocytes % 13.2 H Eosinophils % 5.1 H Basophils % 0.6 Absolute Granulocytes 5.30 Basophils # 0.05 Sodium 126 L Potassium 4.6 Chloride 93 L Carbon Dioxide 22 Anion Gap 16.7 H BUN 7 L Creatinine 0.73 Estimated GFR > 60.0 Glucose 91 POC Glucometer Calcium 8.7 Total Bilirubin 0.90 AST 55 ALT 53 H Alkaline Phosphatase 61 Troponin I < 0.012 Serum Total Protein 7.2 Albumin 4.4 Prealbumin 24.23 Urine Color Urine Appearance Urine pH Ur Specific [place] Urine Protein Urine Ketones Urine Blood Urine Nitrite Urine Bilirubin Urine Urobilinogen Ur Leukocyte Esterase Urine WBC (Auto) Urine RBC (Auto) Urine Bacteria (Auto) Urine Culture Reflexed Urine Glucose Urine Opiates Level Ur Methadone Urine Barbiturates Ur Phencyclidine (PCP) Urine Amphetamine U Benzodiazepine Level Urine Cocaine Urine Marijuana (THC) Ethyl Alcohol 55 H 02/09/21 02:45 WBC RBC Hgb Hct MCV MCH MCHC RDW Plt Count MPV Gran % Eos # (Auto) Absolute Lymphs (auto) Absolute Monos (auto) Lymphocytes % Monocytes % Eosinophils % Basophils % Absolute Granulocytes Basophils # Sodium Potassium Chloride Carbon Dioxide Anion Gap BUN Creatinine Estimated GFR Glucose POC Glucometer Calcium Total Bilirubin AST ALT Alkaline Phosphatase Troponin I Serum Total Protein Albumin Prealbumin Urine Color Urine Appearance Urine pH Ur Specific [place] Urine Protein Urine Ketones Urine Blood Urine Nitrite Urine Bilirubin Urine Urobilinogen Ur Leukocyte Esterase Urine WBC (Auto) Urine RBC (Auto) Urine Bacteria (Auto) Urine Culture Reflexed Urine Glucose Urine Opiates Level NEGATIVE Ur Methadone NEGATIVE Urine Barbiturates NEGATIVE Ur Phencyclidine (PCP) NEGATIVE Urine Amphetamine NEGATIVE U Benzodiazepine Level POSITIVE Urine Cocaine NEGATIVE Urine Marijuana (THC) NEGATIVE Ethyl Alcohol Orders (Last 24 hours) Category Date Time Status Up Ad Teodora ROUTINE Activity 02/09/21 18:21 Active Code Status Order ROUTINE Care 02/09/21 18:19 Active IV Care Q6H Care 02/09/21 18:19 Active POCT Glucose Check ACHS Care 02/09/21 18:[address] in Observation ROUTINE Care 02/09/21 18:19 Active Cristian Montes De Oca ROUTINE Care 02/09/21 18:16 Active Telemetry q6h Care 02/10/21 10:00 Active Tele-Health Consult ROUTINE Cons 02/09/21 18:16 Active CBC W DIFF Urgent Lab 02/09/21 18:16 Completed CMP Urgent Lab 02/09/21 18:16 Completed CULTURE,URINE Stat Lab 02/10/21 02:58 Received ETHYL ALCOHOL Routine Lab 02/09/21 19:00 Completed POCT GLUCOSE Stat Lab 02/09/21 22:20 Completed POCT GLUCOSE Stat Lab 02/10/21 07:29 Completed PREALBUMIN Urgent Lab 02/09/21 18:16 Completed TROPONIN Urgent Lab 02/09/21 18:16 Completed UA W/RFX UR CULTURE Stat Lab 02/10/21 02:58 Completed ALPRAZolam 0.5 MG [xanAX 0.5 MG] Med 02/09/21 22:00 Active 0.5 mg PO BID Acetaminophen 325 mg [Tylenol 325 mg] Med 02/09/21 21:04 Active 650 mg PO Q4H PRN PRN Celecoxib 100 mg [celeBREX 100 MG] Med 02/09/21 22:00 Active 100 mg PO BID Duloxetine HCl 30 mg [Cymbalta 30 MG Capsule] Med 02/10/21 10:00 Active 90 mg PO DAILY Famotidine 20 mg Vial [Pepcid 20 MG VIAL] Med 02/10/21 13:00 Active 20 mg IV Q12HT Folic Acid 1 mg [Folate 1 mg] Med 02/10/21 10:00 Active 1 mg PO DAILY Insulin Lispro [Humalog] Med 02/09/21 18:16 Active See Dose Instructions SQ UD PRN Levofloxacin [Levofloxacin 500MG/100ML D5W] Med 02/10/21 10:00 Active 500 mg in 100 ml IV Q24H10 Lorazepam 2 mg/1 ml [Ativan 2 MG/1 ML VIAL] Med 02/09/21 18:16 Active See Dose Instructions IV Q2-4HPRN PRN Magnesium Oxide 400 mg [Mag-Ox 400] Med 02/09/21 22:00 Active 400 mg PO HS Medication Intervention Med 02/10/21 07:30 Active 1 each MC .RN TO CHECK WITH PT NaCl 0.9% 1000 ml [Sodium Chloride 0.9% 1000 ML] 1,000 Med 02/09/21 18:30 Active ml IV 100 mls/hr Nebivolol HCl 5 MG [Bystolic 5 MG] Med 02/09/21 22:00 Active 10 mg PO HS Ondansetron HCl 4 mg/2 ml [Zofran 4 MG/2 ML VIAL] Med 02/09/21 18:16 Active 4 mg IV Q6H PRN PRN Rivaroxaban 10 mg Tablet [Xarelto 10 mg Tablet] Med 02/10/21 18:00 Active 2.5 mg PO DAILY@1800 PT Eval & Treat (MD Order) ONCE PT 02/10/21 13:01 Completed Oxygen Nasal Cannula 2 lpm RT 02/09/21 18:16 Active Pulse Oximetry .continuos RT 02/09/21 23:43 Active Patient Care Notes (Last 24 hours) 02/10/21 14:16 Nursing Note by Elena Keller CONSULT FINISHED @ 1415 Initialized on 02/10/21 14:16 - END OF NOTE 02/10/21 13:45 Nursing Note by Benita Genao Spoke with Jorge Bland at [facility], stated that she will come and do face to face consultation with the pt. Initialized on 02/10/21 13:45 - END OF NOTE 02/10/21 12:18 Case Management Note by Pau Ocasio REPORTS SHE HELPS PATIENT WITH "EVERYTHING FROM THE WAIST DOWN" AND "SHE JUST CAN'T DO IT ANYMORE". SHE WOULD LIKE PATIENT TO GO TO REHAB. I AGAIN DISCUSSED THIS WITH PATIENT. HE STATED IF HE HAS TO STAY OVERNIGHT- HE REFUSES. WE AGAIN DISCUSSED HHC BUT HIS STATED HE IS MOBILE AND IS FREQUENTLY OUT OF THE HOUSE. PATIENT REFUSED TO STAY HOME FOR SHORT TERM SO HHC COULD ASSIST Initialized on 02/10/21 12:18 - END OF NOTE 02/10/21 11:51 (created 02/10/21 13:53) Nursing Note by Elena Keller JORGE FROM [facility] CAME TO CONSULT PATIENT Initialized on 02/10/21 13:53 - END OF NOTE 02/10/21 11:10 Nursing Note by Benita Genao Spoke with someone from [facility] access and stated that they would have someone out of the [place] office complete the consult around 1315. Initialized on 02/10/21 11:10 - END OF NOTE 02/10/21 10:16 (created 02/10/21 10:48) Nursing Note by Elena Keller FAXED INFO TO [facility] Initialized on 02/10/21 10:48 - END OF NOTE 02/10/21 10:12 (created 02/10/21 10:17) Nursing Note by Elena Keller [facility] Initialized on 02/10/21 10:17 - END OF NOTE 02/09/21 22:12 Nursing Note by Tammy Foote applied per dayshift. IV obtain by Samantha Jordan Rn x 1 in lt a/c Initialized on 02/09/21 22:12 - END OF NOTE Code(s): N12 - TUBULO-INTERSTITIAL NEPHRITIS, NOT SPCF ACUTE OR CHRONIC; B96.20 - UNSP ESCHERICHIA COLI THE CAUSE OF DISEASES CLASSD [id number] (2) Alcohol abuse Current Visit: Yes Status: Acute Code(s): F10.10 - ALCOHOL ABUSE, UNCOMPLICATED (3) Depression, acute Current Visit: Yes Status: Acute Code(s): F32.A - DEPRESSION, UNSPECIFIED (4) Depression, major Current Visit: Yes Status: Acute Code(s): F32.9 - MAJOR DEPRESSIVE DISORDER, SINGLE EPISODE, UNSPECIFIED (5) Anxiety and depression Current Visit: No Status: Acute Code(s): F41.9 - ANXIETY DISORDER, UNSPECIFIED; F32.9 - MAJOR DEPRESSIVE DISORDER, SINGLE EPISODE, UNSPECIFIED
[2021-02-10] MEDS: MAG-OX 400 PO SCH (22:30)
[2021-02-10] MEDS: Bystolic 5 MG PO SCH (22:30)
[2021-02-11] MEDS: Ativan 2 MG/1 ML VIAL IV PRN ×6 (00:41→23:08)
[2021-02-11] MEDS: Sodium Chloride 0.9% 1000 ML 1,000 ML IV SCH ×3 (00:46→21:03)
[2021-02-11] MEDS: Cymbalta 30 MG Capsule PO SCH (09:19)
[2021-02-11] MEDS: FOLATE 1 MG PO SCH (09:19)
[2021-02-11] MEDS: celeBREX 100 MG PO SCH ×2 (09:20→21:04)
[2021-02-11] MEDS: xanAX 0.5 MG PO SCH ×2 (09:20→21:04)
[2021-02-11] MEDS: Levofloxacin 500MG/100ML D5W 500 MG/100 ML BAG IV SCH (09:20)
[2021-02-11] MEDS: Pepcid 20 MG VIAL IV SCH ×2 (09:20→21:04)
[2021-02-11] MEDS: XARELTO 10 MG TABLET PO SCH (17:57)
[2021-02-11] MEDS: Bystolic 5 MG PO SCH (21:04)
[2021-02-11] MEDS: MAG-OX 400 PO SCH (21:04)
[2021-02-11] MEDS: Zofran 4 MG/2 ML VIAL IV PRN (23:08)
[2021-02-12] MEDS: Ativan 2 MG/1 ML VIAL IV PRN ×2 (03:37→06:56)
--- NOTE | 2021-02-12 07:42 | PCM.NOTE ---
Date and Time: 02/11/21740 Late entry Subjective Assessment: more and more confused - Review of Systems Constitutional: Weakness, No Fever, No Chills Eyes: No Symptoms Ears, Nose, & Throat: No Symptoms Respiratory: No Cough, No Short Of Breath Cardiac: No Chest Pain, No Edema, No Syncope Abdominal/Gastrointestinal: No Abdominal Pain, No Nausea, No Vomiting, No Diarrhea Genitourinary Symptoms: No Dysuria Musculoskeletal: No Back Pain, No Neck Pain Skin: No Rash Neurological: No Dizziness, No Focal Weakness, No Sensory Changes Psychological: No Symptoms Endocrine: No Symptoms Hematologic/Lymphatic: No Symptoms Immunological/Allergic: No Symptoms Objective Exam General Appearance: no apparent distress, alert Neurologic Exam: alert, oriented x 3, cooperative, normal mood/affect, nml cerebellar function, sensation nml, No motor deficits Skin Exam: normal color, warm, dry Eye Exam: PERRL, EOMI, eyes nml inspection Ears, Nose, Throat Exam: normal ENT inspection, pharynx normal, moist mucous membranes Neck Exam: normal inspection, non-tender, supple, full range of motion Respiratory Exam: normal breath sounds, lungs clear, No respiratory distress Cardiovascular Exam: regular rate/rhythm, normal heart sounds Gastrointestinal/Abdomen Exam: soft, No tenderness, No mass Extremity Exam: normal inspection, normal range of motion Back Exam: normal inspection, normal range of motion, No CVA tenderness, No vertebral tenderness Male Genitalia Exam: deferred Rectal Exam: deferred OBJECTIVE DATA Vital Signs: Vital Signs - 24 hr Temp Pulse Resp BP BP Pulse Ox 02/12/21 07:34 97.7 F 53 L 21 160/93 96 02/12/21 06:53 94 L 02/12/21 04:00 20 02/12/21 03:51 96.9 F 55 L 20 135/79 96 02/11/21 23:37 97.9 F 59 L 18 150/72 96 02/11/21 23:35 18 02/11/21 19:52 18 02/11/21 19:39 97.8 F 61 18 150/81 96 02/11/21 18:10 92 L 02/11/21 17:56 70 18 117/67 02/11/21 16:00 98.2 F 70 18 185/95 96 02/11/21 14:30 60 16 132/72 02/11/21 12:00 97.5 F 57 L 16 147/70 02/11/21 11:30 57 L 16 02/11/21 08:00 97.5 F 57 L 16 147/70 96 02/11/21 07:45 90 L Pain Assessment - Last Documented Pain Intensity 2 Pain Scale Used 0-10 Pain Scale Intake and Output: Intake & Output 02/09/21 02/10/21 02/11/21 02/12/21 11:59 11:59 11:59 11:59 Intake Total 900 2092 3770 Output Total 75 200 900 Balance 825 1892 2870 Weight 107.1 kg Multi-Disciplinary Progress Notes: Multi-Disciplinary Progress Notes 02/11/21 14:24 Case Management Note by Ivana Bello SPENT 40 MINUTES WITH PT AND , DISCUSSING INPATIENT ALCOHOL REHAB STAY. IS ENCOURAGING PT TO GO. REPORTS THAT IF PT GOES HOME AND CONTINUES TO DRINK THAT SHE IS LEAVING. PT REPORTS THAT SHE HAS SAID THAT SEVERAL TIMES BEFORE. ENCOURAGED PT TO GO TO INPATIENT PROGRAM, ENCOURAGED ALSO BY NURSING STAFF. DISCUSSED AREA FACILITIES. PT REPORTS THAT HE IS 71 YEARS OLD, AND HAS NO INTENTION OF GOING FOR REHAB STAY. STATES, "I HAVE MY DRINKING UNDER CONTROL." I WANT TO GO HOME, AND I CAN CALL "[facility]." IF I NEED HELP. STATES, "THERE IS NO REASON TO DISCUSS IT ANY FURTHER." ALSO, REPORTS THAT HE WAS SOBER FOR 26 YEARS, AND HAS ONLY BEEN DRINKING AGAIN FOR 1-2 MONTHS AND STARTED TO SEE IF IT WOULD HELP WITH HIS "LEG PAIN". REPORTS THAT HE WOULD DRINK WHEN HE RAN OUT OF HIS XANAX. PATIENT REPORTS THAT HE WAS DRINKING 4-6 BEERS DAILY, BUT HOLDS UP 7 FINGERS, TO INDICATE HE WAS DRINKING 7 BEERS DAILY. PT REPORTS THAT HE WOULD TYPICALLY PURCHASE A 6 OR 12 PACK EVERY DAY AT THE [facility]. IS TEARFUL, EMOTIONAL SUPPORT PROVIDED, AND PT AGAIN REPORTS THAT HE WILL NOT GO, HIS DRINKING IS UNDER CONTROL, AND THAT IS THE "END OF IT". Initialized on 02/11/21 14:24 - END OF NOTE 02/11/21 13:53 Physical Therapy Note by Terri/[email or web address].[id number],Julieth [phone] PT. SEEN BY P.T. THIS A.M. WAS IN BED UPON P.T. ARRIVAL TO ROOM. REPORTS NO C/O PN. AGREEABLE TO P.T. SUPINE TO SIT PERFORMED W/ CGA-MIN ASSIST. NEED SOME ASSIST TO GO FROM S/L TO SIT EVEN W/ USE OF BEDRAIL. DISCUSSED THAT USE OF ROLLATOR WOULD BE SAFER THAN CANE. PT. AGREED TO TRY. SIT TO STAND - CGA-SBA. REQUIRED V.C. TO PLACE HANDS ON BED PRIOR TO STANDING INSTEAD OF RW. PT. AMBULATED 200' W/ ROLLATOR AND SBA. FATIGUED BY END OF WALK, BUT O2 SATS 96% ON RA. NO UNSTEADINESS NOTED W/ GAIT OR TURNS. PT. EXHIBITED GREATER STABILITY W/ ROLLATOR THAN CANE. PT. WOULD BENEFIT FROM USE OF ROLLATOR AT HOME TO INCREASE GAIT STABILITY AND DECREASE FALL RISK. PT. WANTED TO LIE DOWN AGAIN AFTER WALKING BUT AGREED TO SIT UP FOR LUNCH LATER. DISCUSSED NEED FOR AMBULATION AT HOME ATLEAST EVERY HOUR UPON D/C. PLAN IS TO D/C HOME W/ SPOUSE AND CONT. W/ OP P.T. OR POSSIBLY LOOK INTO INPT. REHAB STAY TO DEAL W/ ALCOHOL ABUSE HX/WITHDRAWALS. WILL CONT. P.T. TO INCREASE STRENGTH AND MAXIMIZE FUNCTIONAL POTENTIAL UNTIL D/C. Initialized on 02/11/21 13:53 - END OF NOTE 02/11/21 10:53 Case Management Note by Pau Ocasio S/W - PATIENT WILL NOT LIKELY MEET CRITERIA FOR ANTH TO APPROVE HALF-WAY STAY. PATIENT ALSO NOT AGREEABLE. PATIENT WORKED WITH PHYSICAL THERAPY TODAY WITH ROLLATOR. JULIETH RECOMMENDED A ROLLATOR- ORDER SENT [facility]IA [facility] TO [facility]. PATIENT NOT AGREEABLE TO [facility]. STATES IF PATIENT AGREEABLE SHE WILL BEING HIM OVER HERE FOR OUTPT PHYSICAL REHAB- ORDER PLACED ON CHART FOR MD TO SIGN. RELUCTANTLY AGREEABLE TO PLAN BUT UNDERSTANDS THAT WITHOUT PATIENT BEING AGREEABLE TO ADDITIONAL SERVICES THIS IS ALL WE CAN OFFER Initialized on 02/11/21 10:53 - END OF NOTE Assessment/Plan (1) Pyelonephritis due to Escherichia coli Current Visit: Yes Status: Acute Assessment & Plan: improving Code(s): N12 - TUBULO-INTERSTITIAL NEPHRITIS, NOT SPCF ACUTE OR CHRONIC; B96.20 - UNSP ESCHERICHIA COLI THE CAUSE OF DISEASES CLASSD ELSWHR (2) Alcohol abuse Current Visit: Yes Status: Acute Assessment & Plan: confusion Code(s): F10.10 - ALCOHOL ABUSE, UNCOMPLICATED (3) Depression, acute Current Visit: Yes Status: Acute Code(s): F32.A - DEPRESSION, UNSPECIFIED (4) Depression, major Current Visit: Yes Status: Acute Code(s): F32.9 - MAJOR DEPRESSIVE DISORDER, SINGLE EPISODE, UNSPECIFIED (5) Anxiety and depression Current Visit: No Status: Acute Code(s): F41.9 - ANXIETY DISORDER, UNSPECIF IED; F32.9 - MAJOR DEPRESSIVE DISORDER, SINGLE EPISODE, UNSPECIFIED
--- NOTE | 2021-02-12 07:44 | PCM.NOTE ---
Date and Time: 02/12/21742 Subjective Assessment: doing ok, had fall yesterday - Review of Systems Constitutional: No Fever, No Chills Eyes: No Symptoms Ears, Nose, & Throat: No Symptoms Respiratory: No Cough, No Short Of Breath Cardiac: No Chest Pain, No Edema, No Syncope Abdominal/Gastrointestinal: No Abdominal Pain, No Nausea, No Vomiting, No Diarrhea Genitourinary Symptoms: No Dysuria Musculoskeletal: No Back Pain, No Neck Pain Skin: No Rash Neurological: No Dizziness, No Focal Weakness, No Sensory Changes Psychological: No Symptoms Endocrine: No Symptoms Hematologic/Lymphatic: No Symptoms Immunological/Allergic: No Symptoms Objective Exam General Appearance: no apparent distress, alert Neurologic Exam: alert, oriented x 3, cooperative, normal mood/affect, nml cerebellar function, sensation nml, No motor deficits Skin Exam: normal color, warm, dry Eye Exam: PERRL, EOMI, eyes nml inspection Ears, Nose, Throat Exam: normal ENT inspection, pharynx normal, moist mucous membranes Neck Exam: normal inspection, non-tender, supple, full range of motion Respiratory Exam: normal breath sounds, lungs clear, No respiratory distress Cardiovascular Exam: regular rate/rhythm, normal heart sounds Gastrointestinal/Abdomen Exam: soft, No tenderness, No mass Extremity Exam: normal inspection, normal range of motion Back Exam: normal inspection, normal range of motion, No CVA tenderness, No vertebral tenderness Male Genitalia Exam: deferred Rectal Exam: deferred OBJECTIVE DATA Vital Signs: Vital Signs - 24 hr Temp Pulse Resp BP BP Pulse Ox 02/12/21 07:34 97.7 F 53 L 21 160/93 96 02/12/21 06:53 94 L 02/12/21 04:00 20 02/12/21 03:51 96.9 F 55 L 20 135/79 96 02/11/21 23:37 97.9 F 59 L 18 150/72 96 02/11/21 23:35 18 02/11/21 19:52 18 02/11/21 19:39 97.8 F 61 18 150/81 96 02/11/21 18:10 92 L 02/11/21 17:56 70 18 117/67 02/11/21 16:00 98.2 F 70 18 185/95 96 02/11/21 14:30 60 16 132/72 02/11/21 12:00 97.5 F 57 L 16 147/70 02/11/21 11:30 57 L 16 02/11/21 08:00 97.5 F 57 L 16 147/70 96 02/11/21 07:45 90 L Pain Assessment - Last Documented Pain Intensity 2 Pain Scale Used 0-10 Pain Scale Intake and Output: Intake & Output 02/09/21 02/10/21 02/11/21 02/12/21 11:59 11:59 11:59 11:59 Intake Total 900 2092 3770 Output Total 75 200 900 Balance 825 1892 2870 Weight 107.1 kg Multi-Disciplinary Progress Notes: Multi-Disciplinary Progress Notes 02/11/21 14:24 Case Management Note by Ivana Bello SPENT 40 MINUTES WITH PT AND , DISCUSSING INPATIENT ALCOHOL REHAB STAY. IS ENCOURAGING PT TO GO. REPORTS THAT IF PT GOES HOME AND CONTINUES TO DRINK THAT SHE IS LEAVING. PT REPORTS THAT SHE HAS SAID THAT SEVERAL TIMES BEFORE. ENCOURAGED PT TO GO TO INPATIENT PROGRAM, ENCOURAGED ALSO BY NURSING STAFF. DISCUSSED AREA FACILITIES. PT REPORTS THAT HE IS 71 YEARS OLD, AND HAS NO INTENTION OF GOING FOR REHAB STAY. STATES, "I HAVE MY DRINKING UNDER CONTROL." I WANT TO GO HOME, AND I CAN CALL "[facility]." IF I NEED HELP. STATES, "THERE IS NO REASON TO DISCUSS IT ANY FURTHER." ALSO, REPORTS THAT HE WAS SOBER FOR 26 YEARS, AND HAS ONLY BEEN DRINKING AGAIN FOR 1-2 MONTHS AND STARTED TO SEE IF IT WOULD HELP WITH HIS "LEG PAIN". REPORTS THAT HE WOULD DRINK WHEN HE RAN OUT OF HIS XANAX. PATIENT REPORTS THAT HE WAS DRINKING 4-6 BEERS DAILY, BUT HOLDS UP 7 FINGERS, TO INDICATE HE WAS DRINKING 7 BEERS DAILY. PT REPORTS THAT HE WOULD TYPICALLY PURCHASE A 6 OR 12 PACK EVERY DAY AT THE [facility]. IS TEARFUL, EMOTIONAL SUPPORT PROVIDED, AND PT AGAIN REPORTS THAT HE WILL NOT GO, HIS DRINKING IS UNDER CONTROL, AND THAT IS THE "END OF IT". Initialized on 02/11/21 14:24 - END OF NOTE 02/11/21 13:53 Physical Therapy Note by Terri/lic.[id number],Julieth [phone] PT. SEEN BY P.T. THIS A.M. WAS IN BED UPON P.T. ARRIVAL TO ROOM. REPORTS NO C/O PN. AGREEABLE TO P.T. SUPINE TO SIT PERFORMED W/ CGA-MIN ASSIST. NEED SOME ASSIST TO GO FROM S/L TO SIT EVEN W/ USE OF BEDRAIL. DISCUSSED THAT USE OF ROLLATOR WOULD BE SAFER THAN CANE. PT. AGREED TO TRY. SIT TO STAND - CGA-SBA. REQUIRED V.C. TO PLACE HANDS ON BED PRIOR TO STANDING INSTEAD OF RW. PT. AMBULATED 200' W/ ROLLATOR AND SBA. FATIGUED BY END OF WALK, BUT O2 SATS 96% ON RA. NO UNSTEADINESS NOTED W/ GAIT OR TURNS. PT. EXHIBITED GREATER STABILITY W/ ROLLATOR THAN CANE. PT. WOULD BENEFIT FROM USE OF ROLLATOR AT HOME TO INCREASE GAIT STABILITY AND DECREASE FALL RISK. PT. WANTED TO LIE DOWN AGAIN AFTER WALKING BUT AGREED TO SIT UP FOR LUNCH LATER. DISCUSSED NEED FOR AMBULATION AT HOME ATLEAST EVERY HOUR UPON D/C. PLAN IS TO D/C HOME W/ SPOUSE AND CONT. W/ OP P.T. OR POSSIBLY LOOK INTO INPT. REHAB STAY TO DEAL W/ ALCOHOL ABUSE HX/WITHDRAWALS. WILL CONT. P.T. TO INCREASE STRENGTH AND MAXIMIZE FUNCTIONAL POTENTIAL UNTIL D/C. Initialized on 02/11/21 13:53 - END OF NOTE 02/11/21 10:53 Case Management Note by Pau Ocasio S/W - PATIENT WILL NOT LIKELY MEET CRITERIA FOR ANTH TO APPROVE HALF-WAY STAY. PATIENT ALSO NOT AGREEABLE. PATIENT WORKED WITH PHYSICAL THERAPY TODAY WITH ROLLATOR. JULIETH RECOMMENDED A ROLLATOR- ORDER SENT VIA [facility] TO [place] [facility]. PATIENT NOT AGREEABLE TO [facility]. STATES IF PATIENT AGREEABLE SHE WILL BEING HIM OVER HERE FOR OUTPT PHYSICAL REHAB- ORDER PLACED ON CHART FOR MD TO SIGN. RELUCTANTLY AGREEABLE TO PLAN BUT UNDERSTANDS THAT WITHOUT PATIENT BEING AGREEABLE TO ADDITIONAL SERVICES THIS IS ALL WE CAN OFFER Initialized on 02/11/21 10:53 - END OF NOTE Assessment/Plan (1) Pyelonephritis due to Escherichia coli Current Visit: Yes Status: Acute Assessment & Plan: resolved Code(s): N12 - TUBULO-INTERSTITIAL NEPHRITIS, NOT SPCF ACUTE OR CHRONIC; B96.20 - UNSP ESCHERICHIA COLI THE CAUSE OF DISEASES CLASSD ELSWHR (2) Alcohol abuse Current Visit: Yes Status: Acute Code(s): F10.10 - ALCOHOL ABUSE, UNCOMPLICATED (3) Depression, acute Current Visit: Yes Status: Acute Code(s): F32.A - DEPRESSION, UNSPECIFIED (4) Depression, major Current Visit: Yes Status: Acute Code(s): F32.9 - MAJOR DEPRESSIVE DISORDER, SINGLE EPISODE, UNSPECIFIED (5) Anxiety and depression Current Visit: No Status: Acute Code(s): F41.9 - ANXIETY DISORDER, UNSPECIFIED; F32.9 - MAJOR DEPRESSIVE DISORDER, SINGLE EPISODE, UNSPECIFIED
[2021-02-12] MEDS: Cymbalta 30 MG Capsule PO SCH (09:07)
[2021-02-12] MEDS: Pepcid 20 MG VIAL IV SCH ×2 (09:07→20:45)
[2021-02-12] MEDS: Levofloxacin 500MG/100ML D5W 500 MG/100 ML BAG IV SCH (09:07)
[2021-02-12] MEDS: celeBREX 100 MG PO SCH ×2 (09:07→20:45)
[2021-02-12] MEDS: xanAX 0.5 MG PO SCH ×2 (09:07→20:45)
[2021-02-12] MEDS: FOLATE 1 MG PO SCH (09:07)
[2021-02-12] MEDS: Sodium Chloride 0.9% 1000 ML 1,000 ML IV SCH (12:48)
[2021-02-12] MEDS: XARELTO 10 MG TABLET PO SCH (17:34)
[2021-02-12] MEDS: TYLENOL 325 MG PO PRN (20:44)
[2021-02-12] MEDS: MAG-OX 400 PO SCH (20:45)
[2021-02-12] MEDS: Bystolic 5 MG PO SCH (20:45)
[2021-02-13] MEDS: Sodium Chloride 0.9% 1000 ML 1,000 ML IV SCH ×2 (07:28→07:34)
[2021-02-13] MEDS: Cymbalta 30 MG Capsule PO SCH (09:37)
[2021-02-13] MEDS: Pepcid 20 MG VIAL IV SCH (09:37)
[2021-02-13] MEDS: xanAX 0.5 MG PO SCH (09:37)
[2021-02-13] MEDS: Levofloxacin 500MG/100ML D5W 500 MG/100 ML BAG IV SCH (09:37)
[2021-02-13] MEDS: celeBREX 100 MG PO SCH (09:37)
[2021-02-13] MEDS: FOLATE 1 MG PO SCH (09:37)
[2021-02-13 12:45] VITALS: O2SAT 97
[2021-02-13 13:12] VITALS: BP 176/82; PULSE 57
--- NOTE | 2021-02-17 19:31 | PCM.DS ---
Discharge Summary Date of Admission: 02/09/21 15:59 Admitting Physician: JAQUELIN FERNANDEZ Consults: Consults on Case 02/09/21 18:16 Tele-Health Consult ROUTINE Primary Care Provider: JAQUELIN FERNANDEZ Allergies Allergies aspirin Allergy (Verified 02/14/21 15:02) cephalexin [From Keflex] Allergy (Verified 02/14/21 15:02) Penicillins Allergy (Verified 02/14/21 15:02) Hospital Summary - Hospital Course Hospital Course: Chief Complaint Diagnosis acute pyelonephritis Allergies Allergy/AdvReac Type Severity Reaction Status Date / Time aspirin Allergy Verified 02/14/21 15:02 cephalexin [From Keflex] Allergy Verified 02/14/21 15:02 Penicillins Allergy Verified 02/14/21 15:02 Home Medications Medication Instructions Recorded Confirmed Last Taken Type Celecoxib 100 mg [celeBREX 100 100 mg PO BID 02/09/21 02/09/21 02/08/21 History MG] Magnesium Oxide [Magnesium] 500 mg PO HS 02/09/21 02/09/21 Unknown History Vortioxetine Hydrobromide 10 mg PO DAILY 02/09/21 02/09/21 02/08/21 History [Trintellix] Naltrexone HCl 50 mg PO DAILY 30 Days #30 tablet 02/11/21 Unknown Rx Folic Acid 1 mg [Folate 1 mg] 1 mg PO DAILY tablet 02/13/21 Unknown Rx Current Medications Discontinued Medications Generic Name Dose Route Start Last Admin Trade Name Freq PRN Reason Stop Dose Admin Acetaminophen 650 mg 02/09/21 21:04 02/12/21 20:44 Acetaminophen 325 Mg Tablet PO 03/11/21 21:03 650 mg Q4H PRN PRN Administration PAIN AND/OR FEVER Alprazolam 0.5 mg 02/09/21 22:00 02/13/21 09:37 Alprazolam 0.5 Mg Tablet PO 03/11/21 21:59 0.5 mg BID JACQUELIN Administration Celecoxib 100 mg 02/09/21 22:00 02/13/21 09:37 Celecoxib 100 Mg Capsule PO 03/11/21 21:59 100 mg BID JACQUELIN Administration Duloxetine HCl 90 mg 02/10/21 10:00 02/13/21 09:37 Duloxetine Hcl 30 Mg Cap PO 03/12/21 09:59 90 mg DAILY JACQUELIN Administration Famotidine 20 mg 02/10/21 13:00 02/13/21 09:37 Famotidine 20 Mg/1 Vial IV 03/12/21 12:59 20 mg Q12HT JACQUELIN Administration Folic Acid 1 mg 02/10/21 10:00 02/13/21 09:37 Folic Acid 1 Mg Tablet PO 03/12/21 09:59 1 mg DAILY JACQUELIN Administration Sodium Chloride 1,000 mls @ 100 mls/hr 02/09/21 18:30 02/13/21 07:34 Sodium Chloride 0.9% 1000 Ml IV 03/11/21 18:29 100 mls/hr .Q10H JACQUELIN Administration Levofloxacin/Dextrose 500 mg in 100 mls @ 100 mls/hr 02/10/21 10:00 02/13/21 09:37 Levofloxacin 500mg/100ml D5w IV 03/12/21 09:59 100 mls/hr Q24H10 JACQUELIN Administration Insulin Human Lispro 0 unit 02/09/21 18:16 Insulin Lispro 1 Unit SQ 03/11/21 18:15 UD PRN HYPERGLYCEMIA Lorazepam 0 mg 02/09/21 18:16 02/12/21 06:56 Lorazepam 2 Mg/1 Ml 2 Mg Vial IV 03/11/21 18:15 2 mg Q2-4HPRN PRN Administration AGITATION Magnesium Oxide 400 mg 02/09/21 22:00 02/12/21 20:45 Magnesium Oxide 400 Mg Tablet PO 03/11/21 21:59 400 mg HS JACQUELIN Administration Miscellaneous Information 1 each 02/10/21 07:30 Medication Intervention 1 Each Each 03/12/21 07:29 .RN TO CHECK WITH PT JACQUELIN Nebivolol 10 mg 02/09/21 22:00 02/12/21 20:45 Nebivolol Hcl 5 Mg Tablet PO 03/11/21 21:59 10 mg HS JACQUELIN Administration Ondansetron HCl 4 mg 02/09/21 18:16 02/11/21 23:08 Ondansetron Hcl 4 Mg/2 Ml Vial IV 03/11/21 18:15 4 mg Q6H PRN PRN Administration NAUSEA/VOMITING Rivaroxaban 2.5 mg 02/10/21 18:00 02/12/21 17:34 Rivaroxaban 10 Mg Tablet PO 03/12/21 17:59 2.5 mg DAILY@1800 [facility] Administration - Vitals & Intake/Output Vital Signs: Vital Signs Temperature 97.8 F 02/13/21 12:00 Pulse Rate 57 L 02/13/21 13:12 Respiratory Rate 18 02/13/21 12:00 Blood Pressure 176/82 02/13/21 13:12 O2 Sat by Pulse Oximetry 97 02/13/21 12:00 - Lab Result Diagrams: 02/09/21 18:16 02/09/21 18:16 Micro Results-Entire Visit: Microbiology 02/10/21 02:58 Urine Culture - Final Clean Catch Midstream MIXED VANNA; 3 OR MORE TYPES. NO PREDOMINANT ORGANISM. NO FURTHER WORKUP. PLEASE RESUBMIT IF CLINICALLY INDICATED. - Procedures and Test Procedures and Tests throughout Hospitalization: Therapy Orders & Screens 02/09/21 18:16 Oxygen Nasal Cannula 2 lpm Comment: 02/10/21 13:01 PT Eval & Treat (MD Order) ONCE Reason for Eval:: weakness Diagnosis: acute pyelonephritis Discharge Exam General Appearance: no apparent distress, alert Neurologic Exam: alert, oriented x 3, cooperative, normal mood/affect, nml cerebellar function, sensation nml, No motor deficits Eye Exam: PERRL, EOMI, eyes nml inspection Ears, Nose, Throat Exam: normal ENT inspection, pharynx normal, moist mucous membranes Neck Exam: normal inspection, non-tender, supple, full range of motion Respiratory Exam: normal breath sounds, lungs clear, No respiratory distress Cardiovascular Exam: regular rate/rhythm, normal heart sounds Gastrointestinal/Abdomen Exam: soft, No tenderness, No mass Male Genitalia Exam: deferred Rectal Exam: deferred Back Exam: normal inspection, normal range of motion, No CVA tenderness, No vertebral tenderness Extremity Exam: normal inspection, normal range of motion Skin Exam: normal color, warm, dry Final Diagnosis/Problem List - Final Discharge Diagnosis/Problem (1) Pyelonephritis due to Escherichia coli Status: Resolved Code(s): N12 - TUBULO-INTERSTITIAL NEPHRITIS, NOT SPCF ACUTE OR CHRONIC; B96.20 - UNSP ESCHERICHIA COLI THE CAUSE OF DISEASES CLASSD ELSWHR (2) Alcohol abuse Status: Acute Code(s): F10.10 - ALCOHOL ABUSE, UNCOMPLICATED (3) Depression, acute Status: Acute Code(s): F32.A - DEPRESSION, UNSPECIFIED (4) Depression, major Status: Acute Code(s): F32.9 - MAJOR DEPRESSIVE DISORDER, SINGLE EPISODE, UNSPECIFIED (5) Anxiety and depression Status: Acute Code(s): F41.9 - ANXIETY DISORDER, UNSPECIFIED; F32.9 - MAJOR DEPRESSIVE DISORDER, SINGLE EPISODE, UNSPECIFIED - Discharge Discharge Date: 02/13/21 Disposition: Home Health @ [facility] Condition: Stable Prescriptions: New Naltrexone HCl 50 mg PO DAILY 30 Days #30 tablet Folic Acid 1 mg [Folate 1 mg] 1 mg PO DAILY tablet Continue Duloxetine HCl [Cymbalta] 60 mg PO DAILY Duloxetine HCl 30 mg [Cymbalta 30 MG Capsule] 30 mg PO DAILY Nebivolol HCl 5 MG [Bystolic 5 MG] 10 mg PO HS Rivaroxaban [Xarelto] 2.5 mg PO DAILY Magnesium Oxide [Magnesium] 500 mg PO HS Vortioxetine Hydrobromide [Trintellix] 10 mg PO DAILY Celecoxib 100 mg [celeBREX 100 MG] 100 mg PO BID Discontinued Alprazolam [Xanax] 0.5 mg PO BID Outpatient Orders: Physical Therapy Eval & Treat Facility: [facility], Location: PHYSICAL THERAPY Instructions: Depression, Alcohol Use - When Is Drinking a Problem?, Alcohol Abuse and Alcoholism (DC), Folic Acid, Naltrexone Additional Instructions: FOLLOW UP WITH [facility] OR ANOTHER THERAPIST HELP WITH OUTPATIENT ALCOHOL TREATMENT. [facility] PHONE NUMBER #[phone] HOME HEALTH CARE WILL CALL YOU FOR YOUR FIRST VISIT. YOU WILL START P.T. IN THE HOME SETTING, AND THEN MAY TRANSITION TO OUTPATIENT P.T. IF NEEDED. REFERRAL FOR [facility] WAS FAXED TO [facility]. THEY WILL REACH OUT TO YOU FOR YOUR INITIAL EVAL. Follow up with: JAQUELIN FERNANDEZ MD [Primary Care Provider] - 02/20/21 10:45 am (at [facility] )
== END 2021-02-13 13:37 | disposition home health service (06) ==
LOC: MED SURG 15:59
PROVIDERS: ADMIT General Practice; ATTEND General Practice
DX: N12 Tubulo-interstitial nephritis, not specified as acute or chronic (principal); B96.20 Unspecified Escherichia coli [E. coli] as the cause of diseases classified elsewhere; J44.9 Chronic obstructive pulmonary disease, unspecified; I10 Essential (primary) hypertension; F10.10 Alcohol abuse, uncomplicated; F32.9 Major depressive disorder, single episode, unspecified; F41.9 Anxiety disorder, unspecified; Z20.822 Contact with and (suspected) exposure to COVID-19; R53.1 Weakness; Z79.899 Other long term (current) drug therapy
CPT/HCPCS: 36415; 80053; 80307; 81001; 82947; 84134; 84484; 85025; 87086; 90791; 93268; 94760; 94762; 97161; 97530; G0378; G0480; Q3014; U0003; J1956; J2060; J2405; A9270-GY

== ENCOUNTER 2021-02-14 14:57 | Emergency (ER) | payer MEDICARE ==
[2021-02-14] MEDS ORDERED: PROTONIX 40 MG IV IV ONE ×2 (15:11→15:16)
[2021-02-14] MEDS ORDERED: Sodium Chloride 0.9% 1000 ML 1,000 ML IV STA (15:11)
[2021-02-14] MEDS ORDERED: Zofran 4 MG/2 ML VIAL IV ONE (15:11)
[2021-02-14] MEDS ORDERED: Sodium Chloride 0.9% 1000 ML 1,000 ML ONE (15:16)
[2021-02-14] MEDS ORDERED: Zofran 4 MG/2 ML VIAL ONE (15:16)
[2021-02-14] MEDS ORDERED: Hydromorphone 1 mg/ml Injection IV ONE (15:47)
--- NOTE | 2021-02-14 15:47 | ERPHSYRPT ---
- History of Present Illness Time Seen by Provider: 02/14/21 15:15 Historian: patient Exam Limitations: no limitations Patient Subjective Stated Complaint: Weakness Triage Nursing Assessment: Patient brought back to ED via w/c and transferred self to bed. Patient A+O X3. Patient's skin pink, wram and dry. Patient complains of weakness, abdominal pain and nausea. Patient states he was discharged from hospital last night after a 4 day stay for alcohol detox. Patient states he is weak and unable to eat. Physician History: Patient is a 75-year-old white male who had a long history of sobriety as long as 25 years but who couple weeks ago went on a streeter and was hospitalized here for 4 days. He was released last night since going home he has had nausea dry heaves weakness fever chills sweats and abdominal pain. Timing/Duration: yesterday Activities at Onset: none Quality: cramping Abdominal Pain Onset Location: epigastric Pain Radiation: no radiation Severity of Pain-Max: moderate Severity of Pain-Current: moderate Modifying Factors: Improves With: eating, vomiting Associated Symptoms: fever/chills, nausea Previous symptoms: recently seen, recent hospitalization, recently treated Allergies/Adverse Reactions: aspirin Allergy (Verified 02/14/21 15:02) cephalexin [From Keflex] Allergy (Verified 02/14/21 15:02) Penicillins Allergy (Verified 02/14/21 15:02) Home Medications: Duloxetine HCl 30 mg [Cymbalta 30 MG Capsule] 30 mg PO DAILY 04/24/19 [History] Duloxetine HCl [Cymbalta] 60 mg PO DAILY 04/24/19 [History] Nebivolol HCl 5 MG [Bystolic 5 MG] 10 mg PO HS 04/24/19 [History] Rivaroxaban [Xarelto] 2.5 mg PO DAILY 11/15/19 [History] Celecoxib 100 mg [celeBREX 100 MG] 100 mg PO BID 02/09/21 [History] Magnesium Oxide [Magnesium] 500 mg PO HS 02/09/21 [History] Vortioxetine Hydrobromide [Trintellix] 10 mg PO DAILY 02/09/21 [History] Hx Tetanus, Diphtheria Vaccination/Date Given: No Hx Influenza Vaccination/Date Given: Yes Hx Pneumococcal Vaccination/Date Given: No Immunizations Up to Date: Yes Travel Risk - International Travel Have you traveled outside of the country in past 3 weeks: No - Coronavirus Screening Are you exhibiting any of the following symptoms?: No Close contact with a COVID-19 positive Pt in past 14-21 Days: No - Vaccine Status Have you recieved a Covid-19 vaccination: Yes [employer]: Moderna - Vaccination Dates Date of 2cond Vaccination (if applicable): 2020 - Review of Systems Constitutional: No Fever, No Chills Eyes: No Symptoms Ears, Nose, & Throat: No Symptoms Respiratory: No Cough, No Dyspnea Cardiac: No Chest Pain, No Edema, No Syncope Abdominal/Gastrointestinal: Abdominal Pain, Nausea, Vomiting, No Diarrhea Genitourinary Symptoms: No Dysuria Musculoskeletal: No Back Pain, No Neck Pain Skin: No Rash Neurological: No Dizziness, No Focal Weakness, No Sensory Changes Psychological: No Symptoms Endocrine: No Symptoms All Other Systems: Reviewed and Negative - Past Medical History Pertinent Past Medical History: Yes Neurological History: No Pertinent History ENT History: No Pertinent History Cardiac History: Deep Vein Thrombosis Respiratory History: No Pertinent History Endocrine Medical History: No Pertinent History Musculoskeletal History: Arthritis, Fibromyalgia GI Medical History: No Pertinent History History: No Pertinent History Psycho-Social History: Anxiety Male Reproductive Disorders: Prostate Problems - Past Surgical History Past Surgical History: Yes Neuro Surgical History: No Pertinent History Cardiac: No Pertinent History Respiratory: No Pertinent History Gastrointestinal: Appendectomy Genitourinary: No Pertinent History Musculoskeletal: Orthopedic Surgery Male Surgical History: Prostate Surgery Other Surgical History: Tumors removed from back, manav filter placed, - Social History Smoking Status: Never smoker Exposure to second hand smoke: No Drug Use: none Patient Lives Alone: No - Nursing Vital Signs Nursing Vital Signs: Initial Vital Signs Temperature 97.2 F 02/14/21 15:04 Pulse Rate 57 L 02/14/21 15:04 Respiratory Rate 18 02/14/21 15:04 Blood Pressure 187/117 02/14/21 15:04 O2 Sat by Pulse Oximetry 97 02/14/21 15:04 Pain Scale Pain Intensity 2 - Physical Exam General Appearance: moderate distress, alert Eye Exam: PERRL/EOMI, eyes nml inspection Ears, Nose, Throat Exam: normal ENT inspection, pharynx normal, moist mucous membranes Neck Exam: normal inspection, non-tender, supple, full range of motion Respiratory Exam: normal breath sounds, lungs clear, No respiratory distress Cardiovascular Exam: regular rate/rhythm, normal heart sounds Gastrointestinal/Abdomen Exam: tenderness (Epigastrium), distention (Epigastrium), guarding, No mass, No rebound, No hernia Back Exam: normal inspection, normal range of motion, No CVA tenderness, No vertebral tenderness Extremity Exam: normal inspection, normal range of motion, pelvis stable Neurologic Exam: alert, oriented x 3, cooperative, normal mood/affect, nml cerebellar function, sensation nml, No motor deficits Skin Exam: normal color, warm, dry SpO2: 97 - Course Nursing assessment & vital signs reviewed: Yes - CT Exams Abdomen/Pelvis CT Interpretation: Negative, Tele-radiologist Report Ordered Tests: Active Orders 24 hr Category Date Time Status AMA [Release AMA] OM.NOW Care 02/14/21 17:34 Completed EKG-ER Only STAT Care 02/14/21 15:11 Completed IV Insertion STAT Care 02/14/21 15:11 Completed ABDOMEN AND PELVIS W CONTRAST [CT] Stat Exams 02/14/21 15:12 Taken CHEST 1 VIEW (PORTABLE) Stat Exams 02/14/21 15:11 Taken AMYLASE Stat Lab 02/14/21 16:01 Completed CBC W DIFF Stat Lab 02/14/21 15:32 Completed CMP Stat Lab 02/14/21 16:01 Completed FECAL OCCULT BLOOD - SCREENING Stat Lab 02/14/21 15:11 Ordered LIPASE Stat Lab 02/14/21 16:01 Completed Lactic Acid Stat Lab 02/14/21 15:45 Completed PROTIME WITH INR Stat Lab 02/14/21 16:01 Completed TROPONIN Q3H Lab 02/14/21 16:01 Completed UA W/RFX UR CULTURE Stat Lab 02/14/21 17:21 Received Urine Triage Profile Stat Lab 02/14/21 17:21 Received Medication Summary Discontinued Medications Generic Name Dose Route Start Last Admin Trade Name Freq PRN Reason Stop Dose Admin Hydromorphone HCl 1 mg 02/14/21 15:47 02/14/21 15:49 Hydromorphone 1 Mg/1ml Inj 1 Mg/Ml Syringe IV 02/14/21 15:48 1 mg STAT ONE Administration Hydromorphone HCl Confirm 02/14/21 15:48 Hydromorphone 1 Mg/1ml Inj 1 Mg/Ml Syringe Administered 02/14/21 15:49 Dose 1 mg .ROUTE .STK-MED ONE Sodium Chloride 1,000 mls @ 999 mls/hr 02/14/21 15:11 02/14/21 16:28 Sodium Chloride 0.9% 1000 Ml IV 02/14/21 16:11 Infused .Q1H1M STA Infusion Sodium Chloride Confirm 02/14/21 15:16 Sodium Chloride 0.9% 1000 Ml Administered 02/14/21 15:17 Dose 1,000 mls @ ud .ROUTE .STK-MED ONE Ondansetron HCl 4 mg 02/14/21 15:11 02/14/21 15:19 Ondansetron Hcl 4 Mg/2 Ml Vial IV 02/14/21 15:12 4 mg STAT ONE Administration Ondansetron HCl Confirm 02/14/21 15:16 Ondansetron Hcl 4 Mg/2 Ml Vial Administered 02/14/21 15:17 Dose 4 mg .ROUTE .STK-MED ONE Pantoprazole Sodium 40 mg 02/14/21 15:11 02/14/21 15:19 Pantoprazole 40 Mg Vial IV 02/14/21 15:12 40 mg STAT ONE Administration Pantoprazole Sodium Confirm 02/14/21 15:16 Pantoprazole 40 Mg Vial Administered 02/14/21 15:17 Dose 40 mg IV .STK-MED ONE Lab/Rad Data: Laboratory Result Diagrams 02/14/21 15:32 02/14/21 16:01 Laboratory Results 02/14/21 02/14/21 02/14/21 Range/Units 16:01 16:01 16:01 WBC (4.0-10.5) K/mm3 RBC (4.1-5.6) M/mm3 Hgb (12.5-18.0) gm/dl Hct (42-50) % MCV (78-100) fl MCH (26-32) pg MCHC (32-36) g/dl RDW (11.5-14.0) % Plt Count (150-450) K/mm3 MPV (7.5-11.0) fl Gran % (36.0-66.0) % Eos # (Auto) (0-0.5) Absolute Lymphs (auto) (1.0-4.6) Absolute Monos (auto) (0.0-1.3) Lymphocytes % (24.0-44.0) % Monocytes % (0.0-12.0) % Eosinophils % (0.00-5.0) % Basophils % (0.0-0.4) % Absolute Granulocytes (1.4-6.9) Basophils # (0-0.4) PT 13.1 H (9.4-12.5) SECONDS INR 1.11 (0.8-3.0) Sodium 136 L (137-145) mmol/L Potassium 5.0 (3.5-5.1) mmol/L Chloride 99 (98-107) mmol/L Carbon Dioxide 28 (22-30) mmol/L Anion Gap 14.0 (5-15) MEQ/L BUN 8 L (9-20) mg/dL Creatinine 0.79 (0.66-1.25) mg/dL Estimated GFR > 60.0 ML/MIN Glucose 104 (74-106) mg/dL Lactic Acid (0.4-2.0) Calcium 8.8 (8.4-10.2) mg/dL Total Bilirubin 0.80 (0.2-1.3) mg/dL AST 54 (17-59) U/L ALT 66 H (0-50) U/L Alkaline Phosphatase 47 (38-126) U/L Troponin I < 0.012 (0.000-0.034) ng/mL Serum Total Protein 6.0 L (6.3-8.2) g/dL Albumin 3.7 (3.5-5.0) g/dL Amylase 34 (30-110) U/L Lipase 87 (23-300) U/L Slides for Path Review 02/14/21 02/14/21 Range/Units 15:45 15:32 WBC 6.8 (4.0-10.5) K/mm3 RBC 4.18 (4.1-5.6) M/mm3 Hgb 13.7 (12.5-18.0) gm/dl Hct 44.4 (42-50) % MCV 106.2 H (78-100) fl MCH 32.8 H (26-32) pg MCHC 30.9 L (32-36) g/dl RDW 14.5 H (11.5-14.0) % Plt Count 137 L (150-450) K/mm3 MPV 11.3 H (7.5-11.0) fl Gran % 79.4 H (36.0-66.0) % Eos # (Auto) 0.18 (0-0.5) Absolute Lymphs (auto) 0.51 L (1.0-4.6) Absolute Monos (auto) 0.69 (0.0-1.3) Lymphocytes % 7.5 L (24.0-44.0) % Monocytes % 10.1 (0.0-12.0) % Eosinophils % 2.6 (0.00-5.0) % Basophils % 0.4 (0.0-0.4) % Absolute Granulocytes 5.43 (1.4-6.9) Basophils # 0.03 (0-0.4) PT (9.4-12.5) SECONDS INR (0.8-3.0) Sodium (137-145) mmol/L Potassium (3.5-5.1) mmol/L Chloride (98-107) mmol/L Carbon Dioxide (22-30) mmol/L Anion Gap (5-15) MEQ/L BUN (9-20) mg/dL Creatinine (0.66-1.25) mg/dL Estimated GFR ML/MIN Glucose (74-106) mg/dL Lactic Acid 1.7 (0.4-2.0) Calcium (8.4-10.2) mg/dL Total Bilirubin (0.2-1.3) mg/dL AST (17-59) U/L ALT (0-50) U/L Alkaline Phosphatase (38-126) U/L Troponin I (0.000-0.034) ng/mL Serum Total Protein (6.3-8.2) g/dL Albumin (3.5-5.0) g/dL Amylase (30-110) U/L Lipase (23-300) U/L Slides for Path Review YES - Progress Progress: unchanged - Departure Departure Disposition: AMA Clinical Impression: Abdominal pain Condition: Fair Critical Care Time: No Referrals: JAQUELIN FERNANDEZ MD [Primary Care Provider] - Follow up/PCP as directed
[2021-02-14] MEDS ORDERED: Hydromorphone 1 mg/ml Injection ONE (15:48)
[2021-02-14 16:03] LABS: Absolute Neutrophil Ct (ANC) 5.43 (1.4-6.9); BASOPHIL % 0.4 % (0.0-0.4); Basophil (Absolute #) 0.03 (0-0.4); Eosinophil % 2.6 % (0.00-5.0); Eosinophil (Absolute #) 0.18 (0-0.5); Hematocrit 44.4 % (42-50); Hemoglobin 13.7 gm/dl (12.5-18.0); Lymphocyte (Absolute #) 0.51 (1.0-4.6); Lymphocytes % 7.5 % (24.0-44.0); Mean Cell Volume 106.2 fl (78-100); Mean Corpuscular Hemoglobin 32.8 pg (26-32); Mean Corpuscular Hgb Concent. 30.9 g/dl (32-36); Mean Platelet Volume 11.3 fl (7.5-11.0); Monocyte (Absolute #) 0.69 (0.0-1.3); Monocytes % 10.1 % (0.0-12.0); Neutrophil % 79.4 % (36.0-66.0); Platelet Count 137 K/mm3 (150-450); Red Blood Count 4.18 M/mm3 (4.1-5.6); Red Cell Distribution Width 14.5 % (11.5-14.0); White Blood Count 6.8 K/mm3 (4.0-10.5)
[2021-02-14 16:26] LABS: ALBUMIN 3.7 g/dL (3.5-5.0); ALKALINE PHOSPHATASE 47 U/L (38-126); AMYLASE 34 U/L (30-110); BLOOD UREA NITROGEN 8 mg/dL (9-20); CHLORIDE 99 mmol/L (98-107); Calcium 8.8 mg/dL (8.4-10.2); Carbon Dioxide 28 mmol/L (22-30); Creatinine 1 0.79 mg/dL (0.66-1.25); EST GLOMERULAR FILTRATION RATE > 60.0 ML/MIN; Glucose 104 mg/dL (74-106); LIPASE 87 U/L (23-300); SGOT/AST 54 U/L (17-59); SGPT/ALT 66 U/L (0-50); SODIUM 136 mmol/L (137-145)
[2021-02-14 16:31] LABS: INR 1.11 (0.8-3.0); PROTIME 13.1 SECONDS (9.4-12.5)
[2021-02-14 16:38] LABS: Slide Review 1 YES
[2021-02-14 17:49] LABS: Appearance SLIGHTLY CLOUDY (CLEAR); Bilirubin NEGATIVE (NEGATIVE); Blood NEGATIVE Ery/ul (0-5); Epithelial Cells RARE /HPF (FEW); Glucose NEGATIVE (NEGATIVE); Ketones TRACE (NEGATIVE); Leukocyte Esterase MODERATE (NEGATIVE); Mucus SLIGHT /HPF (NEGATIVE); Nitrite NEGATIVE (NEGATIVE); Protein,Urine Dip NEGATIVE (Negative); Specific Gravity 1.016 (1.005-1.025); Urobilinogen NEGATIVE mg/dL (0-1)
[2021-02-14 17:59] LABS: Barbiturate,Urine NEGATIVE (NEGATIVE); Benzodiazepine,Urine POSITIVE (NEGATIVE); Cocaine,Urine NEGATIVE (NEGATIVE); Methadone,Urine NEGATIVE (NEGATIVE); Opiate,Urine POSITIVE (NEGATIVE); PCP,Urine NEGATIVE (NEGATIVE); THC,Urine NEGATIVE (NEGATIVE)
[2021-02-14 18:02] LABS: Amphetamine,Urine NEGATIVE (NEGATIVE)
--- NOTE | 2021-02-14 20:44 | XRAY ---
Indication: Abdomen pain. Multiple contiguous axial images obtained through the abdomen and pelvis using 80 cc Isovue 370 contrast. Comparison: June 11, 2016. Lung bases now demonstrates mild bibasilar subsegmental atelectasis/scarring. Again tiny left lower lobe calcified granulomas. Heart borderline enlarged. Noncontrasted stomach and bowel loops appear nonobstructed. Appendectomy reported. Minimal scattered colonic diverticulosis without diverticulitis. Stable left posterior urinary bladder diverticulum, fatty liver, inferior right hepatic cyst, calcified splenic granulomas, and IVC filter. No free fluid/air. Remaining liver, pancreas, spleen, adrenal glands, kidneys, ureters, and bladder are unremarkable. Minimal aortic calcifications. No AAA or pathologic retroperitoneal lymphadenopathy. 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 Impression: 1. Again incidental colonic diverticulosis, urinary bladder diverticulum, hepatic cyst, fatty liver, chronic bony findings, and old granulomatous disease. 2. Remaining CT abdomen/pelvis with contrast exam is negative. Comment: Preliminary interpretation made by [facility]. No critical discrepancy.
--- NOTE | 2021-02-14 20:47 | XRAY ---
Indication: Pain. Nausea and vomiting. Comparison: April 24, 2019. Portable chest remains underinflated with new left base subsegmental atelectasis/scarring. Remaining heart and lungs are unremarkable. Bony thorax intact again with mild degenerative changes and multiple old bilateral rib fractures. Impression: Nonacute underinflated chest with chronic features.
== END 2021-02-14 17:38 | disposition left against medical advice (07) ==
LOC: ED 14:57
DX: R10.9 Unspecified abdominal pain (principal); R11.0 Nausea; R53.1 Weakness; R50.9 Fever, unspecified; Z79.899 Other long term (current) drug therapy
CPT/HCPCS: 36000; 36415; 71045; 74177; 80053; 80307; 81001; 82150; 83605; 83690; 84484; 85025; 85610; 93005; 96360; 96374; 96375; 99285; J1170; J2405

== ENCOUNTER 2021-02-23 11:33 | Observation (INO) | payer MEDICARE ==
[2021-02-23 13:09] LABS: Absolute Neutrophil Ct (ANC) 9.07 (1.4-6.9); BASOPHIL % 0.3 % (0.0-0.4); Basophil (Absolute #) 0.03 (0-0.4); Eosinophil % 1.2 % (0.00-5.0); Eosinophil (Absolute #) 0.13 (0-0.5); Hemoglobin 15.4 gm/dl (12.5-18.0); Lymphocyte (Absolute #) 0.51 (1.0-4.6); Lymphocytes % 4.8 % (24.0-44.0); Mean Corpuscular Hgb Concent. 30.2 g/dl (32-36); Mean Platelet Volume 11.8 fl (7.5-11.0); Monocyte (Absolute #) 0.89 (0.0-1.3); Monocytes % 8.4 % (0.0-12.0); Neutrophil % 85.3 % (36.0-66.0); Platelet Count 143 K/mm3 (150-450); Red Blood Count 4.81 M/mm3 (4.1-5.6); Red Cell Distribution Width 14.8 % (11.5-14.0); White Blood Count 10.6 K/mm3 (4.0-10.5)
[2021-02-23] MEDS ORDERED: Ativan 2 MG/1 ML VIAL IV ONE (13:11)
--- NOTE | 2021-02-23 13:11 | ERPHSYRPT ---
- History of Present Illness Time Seen by Provider: 02/23/21 11:50 Source: patient Exam Limitations: no limitations Patient Subjective Stated Complaint: Home health called and stated that the pt was confused and hallucinating stating that he wanted to shoot the rabbits in the house, pt is a known alcoholic that states he quit drinking for 20+ years but went on a 2 week streeter last week and ended up in the ER Triage Nursing Assessment: Pt brought to the ER by his , hypertensive, rates abdominal pain from reflux as 09/18, alert to name and place only, pulses normal, skin n/w/d Physician History: Patient is a 75-year-old male presents to our ED as a referral from her home health provider. Patient's home health provider states patient has been confused. She informs us that patient is hallucinating. Patient has been stating that he wants to shoot rabbits in his home. Per report patient is a known alcoholic. Patient states he quit 20 years ago however last week patient was admitted to the hospital after a 2-week drinking binge. Patient states he is experiencing mild epigastric pain. Patient attributes this pain to reflux. No chest pain. No nausea vomiting or diaphoresis. No diarrhea. No rash. No fever. Symptoms are mild to moderate in intensity. No specific worsening improving factors. Patient voices no other complaints or concerns at this time. Timing/Duration: today Severity: moderate Modifying Factors: Improves With: nothing Associated Symptoms: abdominal pain, No nausea, No vomiting, No shortness of breath, No diaphoresis, No cough, No chest pain, No fever, No headaches, No loss of appetite, No syncope, No seizure, No weakness Allergies/Adverse Reactions: aspirin Allergy (Verified 02/23/21 11:57) cephalexin [From Keflex] Allergy (Verified 02/23/21 11:57) Penicillins Allergy (Verified 02/23/21 11:57) Home Medications: Duloxetine HCl 30 mg [Cymbalta 30 MG Capsule] 30 mg PO DAILY 04/24/19 [History] Duloxetine HCl [Cymbalta] 60 mg PO DAILY 04/24/19 [History] Nebivolol HCl 5 MG [Bystolic 5 MG] 10 mg PO HS 04/24/19 [History] Rivaroxaban [Xarelto] 2.5 mg PO DAILY 11/15/19 [History] Celecoxib 100 mg [celeBREX 100 MG] 100 mg PO BID 02/09/21 [History] Magnesium Oxide [Magnesium] 500 mg PO HS 02/09/21 [History] Vortioxetine Hydrobromide [Trintellix] 10 mg PO DAILY 02/09/21 [History] Hx Tetanus, Diphtheria Vaccination/Date Given: No Hx Influenza Vaccination/Date Given: Yes Hx Pneumococcal Vaccination/Date Given: No Travel Risk - International Travel Have you traveled outside of the country in past 3 weeks: No - Coronavirus Screening Are you exhibiting any of the following symptoms?: No Close contact with a COVID-19 positive Pt in past 14-21 Days: No - Vaccine Status Have you recieved a Covid-19 vaccination: Yes [place] [employer]: Moderna - Vaccination Dates Date of 2cond Vaccination (if applicable): 2020 - Review of Systems Constitutional: No Symptoms, No Fever, No Chills Eyes: No Symptoms Ears, Nose, & Throat: No Symptoms Respiratory: No Symptoms, No Cough, No Dyspnea Cardiac: No Symptoms, No Chest Pain, No Edema, No Syncope Abdominal/Gastrointestinal: No Symptoms, No Abdominal Pain, No Nausea, No Vomiting, No Diarrhea Genitourinary Symptoms: No Symptoms, No Dysuria Musculoskeletal: No Symptoms, No Back Pain, No Neck Pain Skin: No Symptoms, No Rash Neurological: No Symptoms, No Dizziness, No Focal Weakness, No Sensory Changes Psychological: No Symptoms Endocrine: No Symptoms Hematologic/Lymphatic: No Symptoms Immunological/Allergic: No Symptoms All Other Systems: Reviewed and Negative - Past Medical History Pertinent Past Medical History: Yes Neurological History: No Pertinent History ENT History: No Pertinent History Cardiac History: Deep Vein Thrombosis Respiratory History: No Pertinent History Endocrine Medical History: No Pertinent History Musculoskeletal History: Arthritis, Fibromyalgia GI Medical History: No Pertinent History History: No Pertinent History Psycho-Social History: Anxiety Male Reproductive Disorders: Prostate Problems - Past Surgical History Past Surgical History: Yes Neuro Surgical History: No Pertinent History Cardiac: No Pertinent History Respiratory: No Pertinent History Gastrointestinal: Appendectomy Genitourinary: No Pertinent History Musculoskeletal: Orthopedic Surgery Male Surgical History: Prostate Surgery Other Surgical History: Tumors removed from back, manav filter placed, - Social History Smoking Status: Never smoker Exposure to second hand smoke: No Drug Use: none Patient Lives Alone: No - Nursing Vital Signs Nursing Vital Signs: Initial Vital Signs Temperature 98.1 F 11/15/21 11:44 Pulse Rate 72 02/23/21 11:44 Respiratory Rate 21 02/23/21 11:44 Blood Pressure 158/84 02/23/21 11:44 O2 Sat by Pulse Oximetry 97 02/23/21 11:44 Pain Scale Pain Intensity 0 - Physical Exam General Appearance: no apparent distress, alert Eye Exam: PERRL/EOMI, eyes nml inspection Ears, Nose, Throat Exam: normal ENT inspection, TMs normal, pharynx normal, moist mucous membranes Neck Exam: normal inspection, non-tender, supple, full range of motion Respiratory Exam: normal breath sounds, lungs clear, airway intact, No chest tenderness, No respiratory distress Cardiovascular Exam: regular rate/rhythm, normal heart sounds, normal peripheral pulses Gastrointestinal/Abdomen Exam: soft, normal bowel sounds, other (Patient states he has epigastric pain rated 6 out of 10. Patient attributes his pain to reflux. However there is no tenderness to palpation.), No tenderness, No mass Back Exam: normal inspection, normal range of motion, No CVA tenderness, No vertebral tenderness Extremity Exam: normal inspection, normal range of motion, pelvis stable Neurologic Exam: alert, oriented x 3, cooperative, normal mood/affect, sensation nml, No motor deficits Skin Exam: normal color, warm, dry, No rash Lymphatic Exam: No adenopathy SpO2 Interpretation: normal SpO2: 96 O2 Delivery: Room Air - Course Nursing assessment & vital signs reviewed: Yes EKG Interpreted by Me: RATE (59), Sinus Rhythm, NORMAL AXIS, NORMAL INTERVALS - CT Exams Head CT Interpretation: Tele-radiologist Report (Again nonacute senile brain with incidental bilateral maxillary sinus polyps versus retention cyst. Age- appropriate global atrophy. No acute intracranial hemorrhage abnormal extra- axial fluid collection or mass-effect. Fourth ventricle is midline and no h ydrocephalus.) Ordered Tests: Active Orders 24 hr Category Date Time Status Injection Molder STAT Care 02/23/21 12:53 Active EKG-ER Only STAT Care 02/23/21 12:52 Active IV Insertion STAT Care 02/23/21 12:52 Active Pulse Oximetry (ED) STAT Care 02/23/21 12:52 Active cath [Cath for Specimen-Straight] STAT Care 02/23/21 15:59 Active HEAD WITHOUT CONTRAST [CT] Stat Exams 02/23/21 13:06 Completed CBC W DIFF Stat Lab 02/23/21 13:07 Completed CMP Stat Lab 02/23/21 13:07 Completed CULTURE,URINE Stat Lab 02/23/21 14:00 Received ETHYL ALCOHOL Stat Lab 02/23/21 13:07 Completed LIPASE Stat Lab 02/23/21 13:07 Completed PROTIME WITH INR Stat Lab 02/23/21 13:07 Completed PTT Stat Lab 02/23/21 13:07 Completed TROPONIN Q3H Lab 02/23/21 13:07 Completed TROPONIN Q3H Lab 02/23/21 16:10 Completed TROPONIN Q3H Lab 02/23/21 19:15 Completed TROPONIN Q3H Lab 02/24/21 01:15 Ordered Urine Triage Profile Stat Lab 02/23/21 14:04 Completed Transfer Order Routine Transfer 02/23/21 Ordered Medication Summary Generic Name Dose Route Start Last Admin Trade Name Freq PRN Reason Stop Dose Admin Sodium Chloride 1,000 mls @ 100 mls/hr 02/23/21 13:00 02/23/21 13:32 Sodium Chloride 0.9% 1000 Ml IV 03/25/21 12:59 100 mls/hr .Q10H JACQUELIN Administration Discontinued Medications Generic Name Dose Route Start Last Admin Trade Name Freq PRN Reason Stop Dose Admin Droperidol 1.25 mg 02/23/21 15:48 02/23/21 15:49 Droperidol 5 Mg/2 Ml Vial IV 02/23/21 15:49 1.25 mg STAT ONE Administration Droperidol Confirm 02/23/21 15:48 Droperidol 5 Mg/2 Ml Vial Administered 02/23/21 15:49 Dose 5 mg .ROUTE .STK-MED ONE Droperidol 5 mg 02/23/21 21:30 02/23/21 21:30 Droperidol 5 Mg/2 Ml Vial IV 02/23/21 21:31 5 mg STAT ONE Administration Droperidol Confirm 02/23/21 21:29 Droperidol 5 Mg/2 Ml Vial Administered 02/23/21 21:30 Dose 5 mg .ROUTE .STK-MED ONE Ketamine HCl 300 mg 02/23/21 17:13 02/23/21 17:17 Ketamine Hcl 50 Mg/Ml IM 02/23/21 17:14 300 mg STAT ONE Administration Lorazepam 1 mg 02/23/21 13:11 02/23/21 13:31 Lorazepam 2 Mg/1 Ml 2 Mg Vial IV 02/23/21 13:12 1 mg STAT ONE Administration Lorazepam Confirm 02/23/21 13:29 Lorazepam 2 Mg/1 Ml 2 Mg Vial Administered 02/23/21 13:30 Dose 2 mg .ROUTE .STK-MED ONE Trimethoprim/Sulfamethoxazole 1 tab 02/23/21 22:28 02/23/21 22:30 Smz/Tmp Ds Tablet 1 Tablet PO 02/23/21 22:29 1 tab STAT STA Administration Trimethoprim/Sulfamethoxazole Confirm 02/23/21 22:29 Smz/Tmp Ds Tablet 1 Tablet Administered 02/23/21 22:30 Dose 1 tab PO .STK-MED ONE Lab/Rad Data: Laboratory Result Diagrams 02/23/21 13:07 02/23/21 13:07 Laboratory Results 02/23/21 02/23/21 02/23/21 Range/Units 22:05 19:15 16:10 WBC (4.0-10.5) K/mm3 RBC (4.1-5.6) M/mm3 Hgb (12.5-18.0) gm/dl Hct (42-50) % MCV (78-100) fl MCH (26-32) pg MCHC (32-36) g/dl RDW (11.5-14.0) % Plt Count (150-450) K/mm3 MPV (7.5-11.0) fl Gran % (36.0-66.0) % Eos # (Auto) (0-0.5) Absolute Lymphs (auto) (1.0-4.6) Absolute Monos (auto) (0.0-1.3) Lymphocytes % (24.0-44.0) % Monocytes % (0.0-12.0) % Eosinophils % (0.00-5.0) % Basophils % (0.0-0.4) % Absolute Granulocytes (1.4-6.9) Basophils # (0-0.4) PT (9.4-12.5) SECONDS INR (0.8-3.0) APTT (25.1-36.5) SECONDS Sodium (137-145) mmol/L Potassium (3.5-5.1) mmol/L Chloride (98-107) mmol/L Carbon Dioxide (22-30) mmol/L Anion Gap (5-15) MEQ/L BUN (9-20) mg/dL Creatinine (0.66-1.25) mg/dL Estimated GFR ML/MIN Glucose (74-106) mg/dL Calcium (8.4-10.2) mg/dL Total Bilirubin (0.2-1.3) mg/dL AST (17-59) U/L ALT (0-50) U/L Alkaline Phosphatase (38-126) U/L Ammonia (9-30) umol/L Troponin I < 0.012 < 0.012 (0.000-0.034) ng/mL Serum Total Protein (6.3-8.2) g/dL Albumin (3.5-5.0) g/dL Lipase (23-300) U/L Urine Color (YELLOW) Urine Appearance (CLEAR) Urine pH (5-6) Ur Specific Saffell (1.005-1.025) Urine Protein (Negative) Urine Ketones (NEGATIVE) Urine Blood (0-5) You/ul Urine Nitrite (NEGATIVE) Urine Bilirubin (NEGATIVE) Urine Urobilinogen (0-1) mg/dL Ur Leukocyte Esterase (NEGATIVE) Urine WBC (Auto) (0-5) /HPF Urine RBC (Auto) (0-2) /HPF U Epithel Cells (Auto) (FEW) /HPF Urine Bacteria (Auto) (NEGATIVE) /HPF Urine Mucus (Auto) (NEGATIVE) /HPF Urine Glucose (NEGATIVE) mg/dL Urine Opiates Level (NEGATIVE) Ur Methadone (NEGATIVE) Urine Barbiturates (NEGATIVE) Ur Phencyclidine (PCP) (NEGATIVE) Urine Amphetamine (NEGATIVE) U Benzodiazepine Level (NEGATIVE) Urine Cocaine (NEGATIVE) Urine Marijuana (THC) (NEGATIVE) Ethyl Alcohol (0-10) mg/dL Influenza Type A Ag NEGATIVE (NEGATIVE) Influenza Type B Ag NEGATIVE (NEGATIVE) RSV (PCR) NEGATIVE (Negative) SARS-CoV-2 (PCR) NEGATIVE (NEGATIVE) Slides for Path Review 02/23/21 02/23/21 02/23/21 Range/Units 14:20 14:04 13:07 WBC (4.0-10.5) K/mm3 RBC (4.1-5.6) M/mm3 Hgb (12.5-18.0) gm/dl Hct (42-50) % MCV (78-100) fl MCH (26-32) pg MCHC (32-36) g/dl RDW (11.5-14.0) % Plt Count (150-450) K/mm3 MPV (7.5-11.0) fl Gran % (36.0-66.0) % Eos # (Auto) (0-0.5) Absolute Lymphs (auto) (1.0-4.6) Absolute Monos (auto) (0.0-1.3) Lymphocytes % (24.0-44.0) % Monocytes % (0.0-12.0) % Eosinophils % (0.00-5.0) % Basophils % (0.0-0.4) % Absolute Granulocytes (1.4-6.9) Basophils # (0-0.4) PT (9.4-12.5) SECONDS INR (0.8-3.0) APTT (25.1-36.5) SECONDS Sodium (137-145) mmol/L Potassium (3.5-5.1) mmol/L Chloride (98-107) mmol/L Carbon Dioxide (22-30) mmol/L Anion Gap (5-15) MEQ/L BUN (9-20) mg/dL Creatinine (0.66-1.25) mg/dL Estimated GFR ML/MIN Glucose (74-106) mg/dL Calcium (8.4-10.2) mg/dL Total Bilirubin (0.2-1.3) mg/dL AST (17-59) U/L ALT (0-50) U/L Alkaline Phosphatase (38-126) U/L Ammonia < 9 L (9-30) umol/L Troponin I (0.000-0.034) ng/mL Serum Total Protein (6.3-8.2) g/dL Albumin (3.5-5.0) g/dL Lipase (23-300) U/L Urine Color TRAVIS (YELLOW) Urine Appearance CLOUDY (CLEAR) Urine pH 5.0 (5-6) Ur Specific Saffell 1.020 (1.005-1.025) Urine Protein 100 (Negative) Urine Ketones SMALL (NEGATIVE) Urine Blood LARGE (0-5) You/ul Urine Nitrite POSITIVE (NEGATIVE) Urine Bilirubin NEGATIVE (NEGATIVE) Urine Urobilinogen NEGATIVE (0-1) mg/dL Ur Leukocyte Esterase SMALL (NEGATIVE) Urine WBC (Auto) >100 (0-5) /HPF Urine RBC (Auto) >101 (0-2) /HPF U Epithel Cells (Auto) RARE (FEW) /HPF Urine Bacteria (Auto) FEW (NEGATIVE) /HPF Urine Mucus (Auto) SLIGHT (NEGATIVE) /HPF Urine Glucose NEGATIVE (NEGATIVE) mg/dL Urine Opiates Level NEGATIVE (NEGATIVE) Ur Methadone NEGATIVE (NEGATIVE) Urine Barbiturates NEGATIVE (NEGATIVE) Ur Phencyclidine (PCP) NEGATIVE (NEGATIVE) Urine Amphetamine NEGATIVE (NEGATIVE) U Benzodiazepine Level POSITIVE (NEGATIVE) Urine Cocaine NEGATIVE (NEGATIVE) Urine Marijuana (THC) NEGATIVE (NEGATIVE) Ethyl Alcohol (0-10) mg/dL Influenza Type A Ag (NEGATIVE) Influenza Type B Ag (NEGATIVE) RSV (PCR) (Negative) SARS-CoV-2 (PCR) (NEGATIVE) Slides for Path Review 02/23/21 02/23/21 02/23/21 Range/Units 13:07 13:07 13:07 WBC (4.0-10.5) K/mm3 RBC (4.1-5.6) M/mm3 Hgb (12.5-18.0) gm/dl Hct (42-50) % MCV (78-100) fl MCH (26-32) pg MCHC (32-36) g/dl RDW (11.5-14.0) % Plt Count (150-450) K/mm3 MPV (7.5-11.0) fl Gran % (36.0-66.0) % Eos # (Auto) (0-0.5) Absolute Lymphs (auto) (1.0-4.6) Absolute Monos (auto) (0.0-1.3) Lymphocytes % (24.0-44.0) % Monocytes % (0.0-12.0) % Eosinophils % (0.00-5.0) % Basophils % (0.0-0.4) % Absolute Granulocytes (1.4-6.9) Basophils # (0-0.4) PT 14.7 H (9.4-12.5) SECONDS INR 1.25 (0.8-3.0) APTT 35.5 (25.1-36.5) SECONDS Sodium 141 (137-145) mmol/L Potassium 4.8 (3.5-5.1) mmol/L Chloride 101 (98-107) mmol/L Carbon Dioxide 27 (22-30) mmol/L Anion Gap 17.9 H (5-15) MEQ/L BUN 23 H (9-20) mg/dL Creatinine 0.94 (0.66-1.25) mg/dL Estimated GFR > 60.0 ML/MIN Glucose 108 H (74-106) mg/dL Calcium 9.2 (8.4-10.2) mg/dL Total Bilirubin 1.20 (0.2-1.3) mg/dL AST 38 (17-59) U/L ALT 47 (0-50) U/L Alkaline Phosphatase 56 (38-126) U/L Ammonia (9-30) umol/L Troponin I < 0.012 (0.000-0.034) ng/mL Serum Total Protein 7.2 (6.3-8.2) g/dL Albumin 4.6 (3.5-5.0) g/dL Lipase 80 (23-300) U/L Urine Color (YELLOW) Urine Appearance (CLEAR) Urine pH (5-6) Ur Specific Saffell (1.005-1.025) Urine Protein (Negative) Urine Ketones (NEGATIVE) Urine Blood (0-5) You/ul Urine Nitrite (NEGATIVE) Urine Bilirubin (NEGATIVE) Urine Urobilinogen (0-1) mg/dL Ur Leukocyte Esterase (NEGATIVE) Urine WBC (Auto) (0-5) /HPF Urine RBC (Auto) (0-2) /HPF U Epithel Cells (Auto) (FEW) /HPF Urine Bacteria (Auto) (NEGATIVE) /HPF Urine Mucus (Auto) (NEGATIVE) /HPF Urine Glucose (NEGATIVE) mg/dL Urine Opiates Level (NEGATIVE) Ur Methadone (NEGATIVE) Urine Barbiturates (NEGATIVE) Ur Phencyclidine (PCP) (NEGATIVE) Urine Amphetamine (NEGATIVE) U Benzodiazepine Level (NEGATIVE) Urine Cocaine (NEGATIVE) Urine Marijuana (THC) (NEGATIVE) Ethyl Alcohol < 10 (0-10) mg/dL Influenza Type A Ag (NEGATIVE) Influenza Type B Ag (NEGATIVE) RSV (PCR) (Negative) SARS-CoV-2 (PCR) (NEGATIVE) Slides for Path Review 02/23/21 Range/Units 13:07 WBC 10.6 H (4.0-10.5) K/mm3 RBC 4.81 (4.1-5.6) M/mm3 Hgb 15.4 (12.5-18.0) gm/dl Hct 51.0 H (42-50) % MCV 106.0 H (78-100) fl MCH 32.0 (26-32) pg MCHC 30.2 L (32-36) g/dl RDW 14.8 H (11.5-14.0) % Plt Count 143 L (150-450) K/mm3 MPV 11.8 H (7.5-11.0) fl Gran % 85.3 H (36.0-66.0) % Eos # (Auto) 0.13 (0-0.5) Absolute Lymphs (auto) 0.51 L (1.0-4.6) Absolute Monos (auto) 0.89 (0.0-1.3) Lymphocytes % 4.8 L (24.0-44.0) % Monocytes % 8.4 (0.0-12.0) % Eosinophils % 1.2 (0.00-5.0) % Basophils % 0.3 (0.0-0.4) % Absolute Granulocytes 9.07 H (1.4-6.9) Basophils # 0.03 (0-0.4) PT (9.4-12.5) SECONDS INR (0.8-3.0) APTT (25.1-36.5) SECONDS Sodium (137-145) mmol/L Potassium (3.5-5.1) mmol/L Chloride (98-107) mmol/L Carbon Dioxide (22-30) mmol/L Anion Gap (5-15) MEQ/L BUN (9-20) mg/dL Creatinine (0.66-1.25) mg/dL Estimated GFR ML/MIN Glucose (74-106) mg/dL Calcium (8.4-10.2) mg/dL Total Bilirubin (0.2-1.3) mg/dL AST (17-59) U/L ALT (0-50) U/L Alkaline Phosphatase (38-126) U/L Ammonia (9-30) umol/L Troponin I (0.000-0.034) ng/mL Serum Total Protein (6.3-8.2) g/dL Albumin (3.5-5.0) g/dL Lipase (23-300) U/L Urine Color (YELLOW) Urine Appearance (CLEAR) Urine pH (5-6) Ur Specific Saffell (1.005-1.025) Urine Protein (Negative) Urine Ketones (NEGATIVE) Urine Blood (0-5) You/ul Urine Nitrite (NEGATIVE) Urine Bilirubin (NEGATIVE) Urine Urobilinogen (0-1) mg/dL Ur Leukocyte Esterase (NEGATIVE) Urine WBC (Auto) (0-5) /HPF Urine RBC (Auto) (0-2) /HPF U Epithel Cells (Auto) (FEW) /HPF Urine Bacteria (Auto) (NEGATIVE) /HPF Urine Mucus (Auto) (NEGATIVE) /HPF Urine Glucose (NEGATIVE) mg/dL Urine Opiates Level (NEGATIVE) Ur Methadone (NEGATIVE) Urine Barbiturates (NEGATIVE) Ur Phencyclidine (PCP) (NEGATIVE) Urine Amphetamine (NEGATIVE) U Benzodiazepine Level (NEGATIVE) Urine Cocaine (NEGATIVE) Urine Marijuana (THC) (NEGATIVE) Ethyl Alcohol (0-10) mg/dL Influenza Type A Ag (NEGATIVE) Influenza Type B Ag (NEGATIVE) RSV (PCR) (Negative) SARS-CoV-2 (PCR) (NEGATIVE) Slides for Path Review YES - Progress Progress: improved Progress Note: Case discussed with Dr. Martinez neurologist at [facility] who accepts transfer pending acceptance by the hospitalist . 02/23/21 17:01 A bed will not be available until tomorrow. Case discussed with Dr. Kc who accepts admission Work-up reveals a urinary tract infection. Patient received an oral dose of Bactrim. Patient has multiple antibiotic allergies. Portions of this note were created with voice recognition technology. There may be grammatical, spelling, punctuation or sound alike errors 02/23/21 22:56 Discussed with : Yovany Will see patient in: hospital (observation) Counseled pt/family regarding: lab results, diagnosis, rad results - Departure Departure Disposition: Observation Clinical Impression: UTI (urinary tract infection), Altered mental status Condition: Stable Critical Care Time: No
[2021-02-23] MEDS ORDERED: Ativan 2 MG/1 ML VIAL ONE (13:29)
[2021-02-23] MEDS: Sodium Chloride 0.9% 1000 ML 1,000 ML IV SCH (13:32)
[2021-02-23 13:39] LABS: INR 1.25 (0.8-3.0); PROTIME 14.7 SECONDS (9.4-12.5)
[2021-02-23 13:41] LABS: PTT 35.5 SECONDS (25.1-36.5)
[2021-02-23 13:44] LABS: ALBUMIN 4.6 g/dL (3.5-5.0); ALKALINE PHOSPHATASE 56 U/L (38-126); ANION GAP 17.9 MEQ/L (5-15); BLOOD UREA NITROGEN 23 mg/dL (9-20); CHLORIDE 101 mmol/L (98-107); Calcium 9.2 mg/dL (8.4-10.2); Carbon Dioxide 27 mmol/L (22-30); Creatinine 1 0.94 mg/dL (0.66-1.25); EST GLOMERULAR FILTRATION RATE > 60.0 ML/MIN; ETHYL ALCOHOL < 10 mg/dL (0-10); Glucose 108 mg/dL (74-106); LIPASE 80 U/L (23-300); Potassium 4.8 mmol/L (3.5-5.1); SGOT/AST 38 U/L (17-59); SGPT/ALT 47 U/L (0-50); SODIUM 141 mmol/L (137-145); Total Protein 7.2 g/dL (6.3-8.2)
--- NOTE | 2021-02-23 13:48 | XRAY ---
Indication: Acute mental status change. Multiple contiguous axial images obtained through the head without contrast. Comparison: November 15, 2019. There is again age-appropriate global atrophy with progressive worsening moderate periventricular degenerative micro-ischemia bilaterally. No acute intracranial hemorrhage, abnormal extra-axial fluid collection, or mass effect. Fourth ventricle is midline without hydrocephalus. Bony calvarium intact. There remains subcentimeter bilateral maxillary sinus polyps/retention cysts. Mastoid air cells are clear. Impression: Again nonacute senile brain with incidental bilateral maxillary sinus polyps/retention cysts.
[2021-02-23 15:48] LABS: Slide Review 1 YES
[2021-02-23] MEDS ORDERED: Inapsine 5 MG/2 ML IV ONE ×2 (15:48→21:30)
[2021-02-23] MEDS ORDERED: Inapsine 5 MG/2 ML ONE ×2 (15:48→21:29)
[2021-02-23 16:22] LABS: Barbiturate,Urine NEGATIVE (NEGATIVE); Benzodiazepine,Urine POSITIVE (NEGATIVE); Cocaine,Urine NEGATIVE (NEGATIVE); Methadone,Urine NEGATIVE (NEGATIVE); Opiate,Urine NEGATIVE (NEGATIVE); PCP,Urine NEGATIVE (NEGATIVE); THC,Urine NEGATIVE (NEGATIVE)
[2021-02-23] MEDS ORDERED: Ketamine HCl 50 MG/ML IM ONE (17:13)
[2021-02-23 17:59] LABS: Amphetamine,Urine NEGATIVE (NEGATIVE)
[2021-02-23 18:12] LABS: Appearance CLOUDY (CLEAR); Bacteria FEW /HPF (NEGATIVE); Bilirubin NEGATIVE (NEGATIVE); Blood LARGE Ery/ul (0-5); Epithelial Cells RARE /HPF (FEW); Glucose NEGATIVE (NEGATIVE); Ketones SMALL (NEGATIVE); Leukocyte Esterase SMALL (NEGATIVE); Mucus SLIGHT /HPF (NEGATIVE); Nitrite POSITIVE (NEGATIVE); Protein,Urine Dip 100 (Negative); Urobilinogen NEGATIVE mg/dL (0-1); WBC >100 /HPF (0-5)
[2021-02-23 18:13] LABS: RBC >101 /HPF (0-2)
[2021-02-23] MEDS ORDERED: BACTRIM DS TABLET PO STA (22:28)
[2021-02-23] MEDS ORDERED: BACTRIM DS TABLET PO ONE (22:29)
[2021-02-23 22:45] LABS: INFLUENZA A NEGATIVE (NEGATIVE); INFLUENZA B NEGATIVE (NEGATIVE); RESPIRATORY SYNCTIAL VIRUS NEGATIVE (Negative); SARS-CoV-2 Xpert Express NEGATIVE (NEGATIVE)
[2021-02-23] MEDS ORDERED: Ativan 2 MG/1 ML VIAL IV PRN (23:11)
[2021-02-24] MEDS: Sodium Chloride 0.9% 1000 ML 1,000 ML IV SCH (00:08)
[2021-02-24 05:33] LABS: Absolute Neutrophil Ct (ANC) 8.27 (1.4-6.9); BASOPHIL % 0.4 % (0.0-0.4); Basophil (Absolute #) 0.04 (0-0.4); Eosinophil % 2.7 % (0.00-5.0); Eosinophil (Absolute #) 0.29 (0-0.5); Hematocrit 47.8 % (42-50); Hemoglobin 14.3 gm/dl (12.5-18.0); Lymphocyte (Absolute #) 0.86 (1.0-4.6); Lymphocytes % 8.2 % (24.0-44.0); Mean Cell Volume 106.2 fl (78-100); Mean Corpuscular Hemoglobin 31.8 pg (26-32); Mean Corpuscular Hgb Concent. 29.9 g/dl (32-36); Mean Platelet Volume 12.2 fl (7.5-11.0); Monocyte (Absolute #) 1.09 (0.0-1.3); Monocytes % 10.3 % (0.0-12.0); Neutrophil % 78.4 % (36.0-66.0); Platelet Count 172 K/mm3 (150-450); Red Cell Distribution Width 14.8 % (11.5-14.0); White Blood Count 10.6 K/mm3 (4.0-10.5)
[2021-02-24 06:09] LABS: ALBUMIN 4.2 g/dL (3.5-5.0); ALKALINE PHOSPHATASE 49 U/L (38-126); ANION GAP 18.5 MEQ/L (5-15); BLOOD UREA NITROGEN 22 mg/dL (9-20); CHLORIDE 106 mmol/L (98-107); Calcium 8.6 mg/dL (8.4-10.2); Carbon Dioxide 22 mmol/L (22-30); Creatinine 1 0.83 mg/dL (0.66-1.25); EST GLOMERULAR FILTRATION RATE > 60.0 ML/MIN; Glucose 103 mg/dL (74-106); Potassium 4.5 mmol/L (3.5-5.1); SGOT/AST 36 U/L (17-59); SGPT/ALT 41 U/L (0-50); SODIUM 141 mmol/L (137-145); Total Protein 6.6 g/dL (6.3-8.2)
[2021-02-24] MEDS ORDERED: Ativan 2 MG/1 ML VIAL IM PRN (09:51)
[2021-02-24] MEDS ORDERED: MEDICATION INTERVENTION PO SCH ×2 (14:00)
[2021-02-24] MEDS ORDERED: FOLATE 1 MG PO SCH (14:00)
[2021-02-24] MEDS ORDERED: Cymbalta 30 MG Capsule PO SCH (14:00)
[2021-02-24] MEDS ORDERED: XARELTO 10 MG TABLET PO SCH (14:00)
--- NOTE | 2021-02-24 17:44 | PCM.HP ---
History of Present Illness - Chief Complaint Chief Complaint: confusion for 2-3 days History of Present Illness: is a 75 year old male. presents to our ED as a referral from her home health provider. Patient's home health provider states patient has been confused. She informs us that patient is hallucinating. Patient has been stating that he wants to shoot rabbits in his home. Per report patient is a known alcoholic. Patient states he quit 20 years ago however last week patient was admitted to the hospital after a 2-week drinking binge. Patient states he is experiencing mild epigastric pain. Patient attributes this pain to reflux. No chest pain. No nausea vomiting or diaphoresis. No diarrhea. No rash. No fever. Symptoms are mild to moderate in intensity. No specific worsening improving factors. Patient voices no other complaints or concerns at this time. Timing/Duration: today Severity: moderate Modifying Factors: Improves With: nothing Associated Symptoms: abdominal pain, No nausea, No vomiting, No shortness of breath, No diaphoresis, No cough, No chest pain, No fever, No headaches, No loss of appetite, No syncope, No seizure, No weakness - Review of Systems Constitutional: Lethargy, Weakness, No Fever, No Chills Eyes: No Symptoms Ears, Nose, & Throat: No Symptoms Respiratory: No Cough, No Short Of Breath Cardiac: No Chest Pain, No Edema, No Syncope Abdominal/Gastrointestinal: No Abdominal Pain, No Nausea, No Vomiting, No Diarrhea Genitourinary Symptoms: No Dysuria Musculoskeletal: No Back Pain, No Neck Pain Skin: No Rash Neurological: Irritability, Lethargy, No Dizziness, No Focal Weakness, No Sensory Changes Psychological: Alcohol Abuse, Anxiety, Depression, Emotional Lability, Hallucinations, No Suicidal Ideations, No Homicidal Ideations Endocrine: No Symptoms Hematologic/Lymphatic: No Symptoms Immunological/Allergic: No Symptoms Medications & Allergies Home Medications: Home Medication List Duloxetine HCl 30 mg [Cymbalta 30 MG Capsule] 30 mg PO DAILY 04/24/19 [History Confirmed 02/23/21] Duloxetine HCl [Cymbalta] 60 mg PO DAILY 04/24/19 [History Confirmed 02/23/21] Nebivolol HCl 5 MG [Bystolic 5 MG] 10 mg PO HS 04/24/19 [History Confirmed 02/23/21] Rivaroxaban [Xarelto] 2.5 mg PO DAILY 11/15/19 [History Confirmed 02/23/21] Celecoxib 100 mg [celeBREX 100 MG] 100 mg PO BID 02/09/21 [History Confirmed 02/23/21] Magnesium Oxide [Magnesium] 500 mg PO HS 02/09/21 [History Confirmed 02/23/21] Vortioxetine Hydrobromide [Trintellix] 10 mg PO DAILY 02/09/21 [History Confirmed 02/23/21] Naltrexone HCl 50 mg PO DAILY 30 Days #30 tablet 02/11/21 [Rx Confirmed 02/23/21] Folic Acid 1 mg [Folate 1 mg] 1 mg PO DAILY tablet 02/13/21 [Rx Confirmed 02/23/21] Allergies/Adverse Reactions: Allergies Allergy/AdvReac Type Severity Reaction Status Date / Time aspirin Allergy Verified 02/23/21 11:57 cephalexin [From Keflex] Allergy Verified 02/23/21 11:57 Penicillins Allergy Verified 02/23/21 11:57 - Past Medical History Past Medical History: Yes Neurological History: Dementia ENT History: No Pertinent History Cardiac History: No Pertinent History Respiratory History: No Pertinent History Endocrine Medical History: No Pertinent History Musculoskelatal History: Arthritis, Fibromyalgia GI Medical History: No Pertinent History History: No Pertinent History Pyscho-Social History: Anxiety, Other Male Reproductive Disorders: No Pertinent History Comment: Reviewed from prior admission on 02/13/2021 - Past Surgical History Past Surgical History: (RUSSEL) Neuro Surgical History: No Pertinent History Cardiac History: No Pertinent History Respiratory Surgery: No Pertinent History GI Surgical History: Appendectomy Genitourinary Surgical Hx: No Pertinent History Musculskeletal Surgical Hx: Orthopedic Surgery Male Surgical History: Prostate Surgery Other Surgical History: Tumors removed from back, manav filter placed, - Social History Smoking Status: Former smoker Exposure to second hand smoke: No Alcohol: Daily Drug Use: none - Physical Exam Vital Signs: Vital Signs - 24 hr Temp Pulse Resp BP Pulse Ox 02/24/21 15:10 97.7 F 69 18 166/85 92 L 02/24/21 11:42 97.3 F 80 20 183/85 96 02/24/21 07:08 97.3 F 68 16 196/86 97 02/24/21 04:00 98.9 F 72 18 135/90 94 L 02/24/21 01:39 93 L 02/24/21 00:10 97.5 F 74 16 155/77 98 02/23/21 23:11 97.5 F 74 16 155/77 98 02/23/21 23:10 96 02/23/21 22:00 76 16 100/77 95 02/23/21 21:09 72 20 161/86 95 02/23/21 20:13 68 16 117/60 97 02/23/21 19:33 60 111/49 96 02/23/21 18:09 84 20 94 L General Appearance: no apparent distress, alert Neurologic Exam: alert, oriented x 3, cooperative, normal mood/affect, nml cerebellar function, nml station & gait, sensation nml, No motor deficits Eye Exam: PERRL/EOMI, eyes nml inspection Ears, Nose, Throat Exam: normal ENT inspection, TMs normal, pharynx normal, moist mucous membranes Neck Exam: normal inspection, non-tender, supple, full range of motion Respiratory Exam: normal breath sounds, diminished breath sounds, No respiratory distress Cardiovascular Exam: regular rate/rhythm, normal heart sounds, normal peripheral pulses Gastrointestinal/Abdomen Exam: soft, normal bowel sounds, No tenderness, No mass Back Exam: normal inspection, normal range of motion, No CVA tenderness, No vertebral tenderness Extremity Exam: normal inspection, normal range of motion, pelvis stable Skin Exam: normal color, warm, dry, No rash Lymphatic Exam: No adenopathy Results - Labs Lab/Micro Results: Lab Results-Last 24 Hours 02/23/21 02/23/21 02/23/21 Range/Units 13:07 14:04 19:15 WBC (4.0-10.5) K/mm3 RBC (4.1-5.6) M/mm3 Hgb (12.5-18.0) gm/dl Hct (42-50) % MCV (78-100) fl MCH (26-32) pg MCHC (32-36) g/dl RDW (11.5-14.0) % Plt Count (150-450) K/mm3 MPV (7.5-11.0) fl Gran % (36.0-66.0) % Eos # (Auto) (0-0.5) Absolute Lymphs (auto) (1.0-4.6) Absolute Monos (auto) (0.0-1.3) Lymphocytes % (24.0-44.0) % Monocytes % (0.0-12.0) % Eosinophils % (0.00-5.0) % Basophils % (0.0-0.4) % Absolute Granulocytes (1.4-6.9) Basophils # (0-0.4) Sodium (137-145) mmol/L Potassium (3.5-5.1) mmol/L Chloride (98-107) mmol/L Carbon Dioxide (22-30) mmol/L Anion Gap (5-15) MEQ/L BUN (9-20) mg/dL Creatinine (0.66-1.25) mg/dL Estimated GFR ML/MIN Glucose (74-106) mg/dL Calcium (8.4-10.2) mg/dL Total Bilirubin (0.2-1.3) mg/dL AST (17-59) U/L ALT (0-50) U/L Alkaline Phosphatase (38-126) U/L Troponin I < 0.012 (0.000-0.034) ng/mL Serum Total Protein (6.3-8.2) g/dL Albumin (3.5-5.0) g/dL Urine Color TRAVIS (YELLOW) Urine Appearance CLOUDY (CLEAR) Urine pH 5.0 (5-6) Ur Specific [place] 1.020 (1.005-1.025) Urine Protein 100 (Negative) Urine Ketones SMALL (NEGATIVE) Urine Blood LARGE (0-5) You/ul Urine Nitrite POSITIVE (NEGATIVE) Urine Bilirubin NEGATIVE (NEGATIVE) Urine Urobilinogen NEGATIVE (0-1) mg/dL Ur Leukocyte Esterase SMALL (NEGATIVE) Urine WBC (Auto) >100 (0-5) /HPF Urine RBC (Auto) >101 (0-2) /HPF U Epithel Cells (Auto) RARE (FEW) /HPF Urine Bacteria (Auto) FEW (NEGATIVE) /HPF Urine Mucus (Auto) SLIGHT (NEGATIVE) /HPF Urine Glucose NEGATIVE (NEGATIVE) mg/dL Urine Opiates Level NEGATIVE (NEGATIVE) Ur Methadone NEGATIVE (NEGATIVE) Urine Barbiturates NEGATIVE (NEGATIVE) Ur Phencyclidine (PCP) NEGATIVE (NEGATIVE) Urine Amphetamine NEGATIVE (NEGATIVE) U Benzodiazepine Level POSITIVE (NEGATIVE) Urine Cocaine NEGATIVE (NEGATIVE) Urine Marijuana (THC) NEGATIVE (NEGATIVE) Influenza Type A Ag (NEGATIVE) Influenza Type B Ag (NEGATIVE) RSV (PCR) (Negative) SARS-CoV-2 (PCR) (NEGATIVE) 02/23/21 02/24/21 02/24/21 Range/Units 22:05 04:47 04:47 WBC 10.6 H (4.0-10.5) K/mm3 RBC 4.50 (4.1-5.6) M/mm3 Hgb 14.3 (12.5-18.0) gm/dl Hct 47.8 (42-50) % MCV 106.2 H (78-100) fl MCH 31.8 (26-32) pg MCHC 29.9 L (32-36) g/dl RDW 14.8 H (11.5-14.0) % Plt Count 172 (150-450) K/mm3 MPV 12.2 H (7.5-11.0) fl Gran % 78.4 H (36.0-66.0) % Eos # (Auto) 0.29 (0-0.5) Absolute Lymphs (auto) 0.86 L (1.0-4.6) Absolute Monos (auto) 1.09 (0.0-1.3) Lymphocytes % 8.2 L (24.0-44.0) % Monocytes % 10.3 (0.0-12.0) % Eosinophils % 2.7 (0.00-5.0) % Basophils % 0.4 (0.0-0.4) % Absolute Granulocytes 8.27 H (1.4-6.9) Basophils # 0.04 (0-0.4) Sodium 141 (137-145) mmol/L Potassium 4.5 (3.5-5.1) mmol/L Chloride 106 (98-107) mmol/L Carbon Dioxide 22 (22-30) mmol/L Anion Gap 18.5 H (5-15) MEQ/L BUN 22 H (9-20) mg/dL Creatinine 0.83 (0.66-1.25) mg/dL Estimated GFR > 60.0 ML/MIN Glucose 103 (74-106) mg/dL Calcium 8.6 (8.4-10.2) mg/dL Total Bilirubin 1.30 (0.2-1.3) mg/dL AST 36 (17-59) U/L ALT 41 (0-50) U/L Alkaline Phosphatase 49 (38-126) U/L Troponin I (0.000-0.034) ng/mL Serum Total Protein 6.6 (6.3-8.2) g/dL Albumin 4.2 (3.5-5.0) g/dL Urine Color (YELLOW) Urine Appearance (CLEAR) Urine pH (5-6) Ur Specific [place] (1.005-1.025) Urine Protein (Negative) Urine Ketones (NEGATIVE) Urine Blood (0-5) You/ul Urine Nitrite (NEGATIVE) Urine Bilirubin (NEGATIVE) Urine Urobilinogen (0-1) mg/dL Ur Leukocyte Esterase (NEGATIVE) Urine WBC (Auto) (0-5) /HPF Urine RBC (Auto) (0-2) /HPF U Epithel Cells (Auto) (FEW) /HPF Urine Bacteria (Auto) (NEGATIVE) /HPF Urine Mucus (Auto) (NEGATIVE) /HPF Urine Glucose (NEGATIVE) mg/dL Urine Opiates Level (NEGATIVE) Ur Methadone (NEGATIVE) Urine Barbiturates (NEGATIVE) Ur Phencyclidine (PCP) (NEGATIVE) Urine Amphetamine (NEGATIVE) U Benzodiazepine Level (NEGATIVE) Urine Cocaine (NEGATIVE) Urine Marijuana (THC) (NEGATIVE) Influenza Type A Ag NEGATIVE (NEGATIVE) Influenza Type B Ag NEGATIVE (NEGATIVE) RSV (PCR) NEGATIVE (Negative) SARS-CoV-2 (PCR) NEGATIVE (NEGATIVE) - Radiology Impressions Radiology Exams & Impressions: Radiology Procedures Category Date Time Status HEAD WITHOUT CONTRAST [CT] Stat Exams 02/23/21 13:06 Completed Assessment/Plan (1) Altered mental status Current Visit: Yes Status: Acute Qualifiers: Altered mental status type: disorientation Qualified Code(s): R41.0 - Disorientation, unspecified Code(s): R41.82 - ALTERED MENTAL STATUS, UNSPECIFIED (2) Osteoarthritis (arthritis due to wear and tear of joints) Current Visit: Yes Status: Acute Qualifiers: Osteoarthritis location: unspecified site Osteoarthritis type: primary Qualified Code(s): M19.91 - Primary osteoarthritis, unspecified site Code(s): M19.90 - UNSPECIFIED OSTEOARTHRITIS, UNSPECIFIED SITE (3) Chronic pulmonary embolism Current Visit: Yes Status: Chronic Code(s): I27.82 - CHRONIC PULMONARY EMBOLISM (4) CAD (coronary artery disease) Current Visit: Yes Status: Chronic Qualifiers: Coronary Disease-Associated Artery/Lesion type: [place] artery [place] vs. transplanted heart: [place] heart Associated angina: with stable angina Quali fied Code(s): I25.118 - Atherosclerotic heart disease of [place] coronary artery with other forms of angina pectoris Code(s): I25.10 - ATHSCL HEART DISEASE OF [place] CORONARY ARTERY W/O ANG PCTRS (5) HTN (hypertension) Current Visit: Yes Status: Acute Qualifiers: Hypertension type: primary hypertension Qualified Code(s): I10 - Essential (primary) hypertension Code(s): I10 - ESSENTIAL (PRIMARY) HYPERTENSION (6) Alcohol abuse Current Visit: Yes Status: Chronic Code(s): F10.10 - ALCOHOL ABUSE, UNCOMPLICATED (7) Anxiety and depression Current Visit: Yes Status: Chronic Code(s): F41.9 - ANXIETY DISORDER, UNSPEC IFIED; F32.9 - MAJOR DEPRESSIVE DISORDER, SINGLE EPISODE, UNSPECIFIED (8) Fall with injury Current Visit: No Status: Resolved Code(s): W19.XXXA - UNSPECIFIED FALL, INITIAL ENCOUNTER
[2021-02-24] MEDS ORDERED: NON-FORMULARY ITEM (Magnesium Oxide [Magnesium] 500 MG Capsule) PO SCH (22:00)
[2021-02-24] MEDS ORDERED: celeBREX 100 MG PO SCH (22:00)
[2021-02-24] MEDS ORDERED: MAG-OX 400 PO SCH (22:00)
[2021-02-24] MEDS ORDERED: Bystolic 5 MG PO SCH (22:00)
[2021-02-25] MEDS ORDERED: NON-FORMULARY ITEM (Vortioxetine Hydrobromide [Trintellix] 10 MG Tablet) PO SCH (10:00)
[2021-02-25] MEDS ORDERED: NON-FORMULARY ITEM (Duloxetine Hcl [Cymbalta] 60 MG Capsule.Dr) PO SCH (10:00)
[2021-02-25] MEDS ORDERED: RIVAROXABAN PO SCH (10:00)
[2021-02-25] MEDS ORDERED: NON-FORMULARY ITEM (Naltrexone Hcl [Naltrexone Hcl] 50 MG Tablet) PO SCH (10:00)
--- NOTE | 2021-02-26 08:09 | PCM.DS ---
Discharge Summary Date of Admission: 02/23/21 23:07 Admitting Physician: JAQUELIN FERNANDEZ Primary Care Provider: JAQUELIN FERNANDEZ Allergies Allergies aspirin Allergy (Verified 02/23/21 11:57) cephalexin [From Keflex] Allergy (Verified 02/23/21 11:57) Penicillins Allergy (Verified 02/23/21 11:57) Hospital Summary - Hospital Course Hospital Course: Chief Complaint Diagnosis confusion for 2-3 days Allergies Allergy/AdvReac Type Severity Reaction Status Date / Time aspirin Allergy Verified 02/23/21 11:57 cephalexin [From Keflex] Allergy Verified 02/23/21 11:57 Penicillins Allergy Verified 02/23/21 11:57 Current Medications Discontinued Medications Generic Name Dose Route Start Last Admin Trade Name Freq PRN Reason Stop Dose Admin Celecoxib 100 mg 02/24/21 22:00 Celecoxib 100 Mg Capsule PO 03/26/21 21:59 BID JACQUELIN Droperidol 1.25 mg 02/23/21 15:48 02/23/21 15:49 Droperidol 5 Mg/2 Ml Vial IV 02/23/21 15:49 1.25 mg STAT ONE Administration Droperidol Confirm 02/23/21 15:48 Droperidol 5 Mg/2 Ml Vial Administered 02/23/21 15:49 Dose 5 mg .ROUTE .STK-MED ONE Droperidol 5 mg 02/23/21 21:30 02/23/21 21:30 Droperidol 5 Mg/2 Ml Vial IV 02/23/21 21:31 5 mg STAT ONE Administration Droperidol Confirm 02/23/21 21:29 Droperidol 5 Mg/2 Ml Vial Administered 02/23/21 21:30 Dose 5 mg .ROUTE .STK-MED ONE Duloxetine HCl 90 mg 02/24/21 14:00 02/24/21 14:23 Duloxetine Hcl 30 Mg Cap PO 03/26/21 13:59 90 mg DAILY JACQUELIN Administration Folic Acid 1 mg 02/24/21 14:00 02/24/21 14:23 Folic Acid 1 Mg Tablet PO 03/26/21 13:59 1 mg DAILY JACQUELIN Administration Sodium Chloride 1,000 mls @ 100 mls/hr 02/23/21 13:00 02/24/21 00:08 Sodium Chloride 0.9% 1000 Ml IV 03/25/21 12:59 100 mls/hr .Q10H JACQUELIN Administration Ketamine HCl 300 mg 02/23/21 17:13 02/23/21 17:17 Ketamine Hcl 50 Mg/Ml IM 02/23/21 17:14 300 mg STAT ONE Administration Lorazepam 1 mg 02/23/21 13:11 02/23/21 13:31 Lorazepam 2 Mg/1 Ml 2 Mg Vial IV 02/23/21 13:12 1 mg STAT ONE Administration Lorazepam Confirm 02/23/21 13:29 Lorazepam 2 Mg/1 Ml 2 Mg Vial Administered 02/23/21 13:30 Dose 2 mg .ROUTE .STK-MED ONE Lorazepam 1 mg 02/23/21 23:11 Lorazepam 2 Mg/1 Ml 2 Mg Vial IV 03/25/21 23:10 Q4H PRN PRN AGITATION Lorazepam 1 mg 02/24/21 09:51 Lorazepam 2 Mg/1 Ml 2 Mg Vial IM 03/26/21 09:50 Q4H PRN PRN ANXIETY/AGITATION Magnesium Oxide 400 mg 02/24/21 22:00 Magnesium Oxide 400 Mg Tablet PO 03/26/21 21:59 HS JACQUELIN Miscellaneous Information 1 each 02/24/21 14:00 Medication Intervention 1 Each Each PO 03/26/21 13:59 .RN TO CHECK ON JACQUELIN Miscellaneous Information 1 each 02/24/21 14:00 Medication Intervention 1 Each Each PO 03/26/21 13:59 .RN TO CHECK ON JACQUELIN Nebivolol 10 mg 02/24/21 22:00 Nebivolol Hcl 5 Mg Tablet PO 03/26/21 21:59 HS JACQUELIN Rivaroxaban 2.5 mg 02/24/21 14:00 02/24/21 14:23 Rivaroxaban 10 Mg Tablet PO 03/26/21 13:59 2.5 mg DAILY JACQUELIN Administration Trimethoprim/Sulfamethoxazole 1 tab 02/23/21 22:28 02/23/21 22:30 Smz/Tmp Ds Tablet 1 Tablet PO 02/23/21 22:29 1 tab STAT STA Administration Trimethoprim/Sulfamethoxazole Confirm 02/23/21 22:29 Smz/Tmp Ds Tablet 1 Tablet Administered 02/23/21 22:30 Dose 1 tab PO .STK-MED ONE Intake & Output (Last 24 hours) 02/23/21 02/24/21 02/25/21 02/26/21 11:59 11:59 11:59 11:59 Intake Total 985 1060 Balance 985 1060 Weight 99.79 kg 100.3 kg - Vitals & Intake/Output Vital Signs: Vital Signs Temperature 97.7 F 02/24/21 15:10 Pulse Rate 69 02/24/21 15:10 Respiratory Rate 18 02/24/21 15:10 Blood Pressure 166/85 02/24/21 15:10 O2 Sat by Pulse Oximetry 92 L 02/24/21 15:10 Intake & Output: Intake & Output 02/23/21 02/24/21 02/25/21 02/26/21 11:59 11:59 11:59 11:59 Intake Total 985 1060 Balance 985 1060 Weight 99.79 kg 100.3 kg - Lab Result Diagrams: 02/24/21 04:47 02/24/21 04:47 - Procedures and Test Procedures and Tests throughout Hospitalization: Therapy Orders & Screens 02/24/21 12:39 PT Eval & Treat (MD Order) ONCE Reason for Eval:: weakness Diagnosis: AMS Discharge Exam General Appearance: no apparent distress, alert Neurologic Exam: alert, oriented x 3, cooperative, normal mood/affect, nml cere bellar function, sensation nml, No motor deficits Eye Exam: PERRL, EOMI, eyes nml inspection Ears, Nose, Throat Exam: normal ENT inspection, pharynx normal, moist mucous membranes Neck Exam: normal inspection, non-tender, supple, full range of motion Respiratory Exam: normal breath sounds, lungs clear, No respiratory distress Cardiovascular Exam: regular rate/rhythm, normal heart sounds Gastrointestinal/Abdomen Exam: soft, No tenderness, No mass Male Genitalia Exam: deferred Rectal Exam: deferred Back Exam: normal inspection, normal range of motion, No CVA tenderness, No vertebral tenderness Extremity Exam: normal inspection, normal range of motion Skin Exam: normal color, warm, dry Final Diagnosis/Problem List - Final Discharge Diagnosis/Problem (1) Altered mental status Status: Resolved Code(s): R41.82 - ALTERED MENTAL STATUS, UNSPECIFIED (2) Osteoarthritis (arthritis due to wear and tear of joints) Status: Acute Code(s): M19.90 - UNSPECIFIED OSTEOARTHRITIS, UNSPECIFIED SITE (3) Chronic pulmonary embolism Status: Chronic Code(s): I27.82 - CHRONIC PULMONARY EMBOLISM (4) CAD (coronary artery disease) Status: Chronic Code(s): I25.10 - ATHSCL HEART DISEASE OF [place] CORONARY ARTERY W/O ANG PCTRS (5) HTN (hypertension) Status: Acute Code(s): I10 - ESSENTIAL (PRIMARY) HYPERTENSION (6) Alcohol abuse Status: Chronic Code(s): F10.10 - ALCOHOL ABUSE, UNCOMPLICATED (7) Anxiety and depression Status: Chronic Code(s): F41.9 - ANXIETY DISORDER, UNSPECIFIED; F32.9 - MAJOR DEPRESSIVE DISORDER, SINGLE EPISODE, UNSPECIFIED (8) Fall with injury Status: Resolved Code(s): W19.XXXA - UNSPECIFIED FALL, INITIAL ENCOUNTER - Discharge Discharge Date: 02/24/21 Disposition: DC TO [facility] Condition: Stable Prescriptions: No Action Duloxetine HCl [Cymbalta] 60 mg PO DAILY Duloxetine HCl 30 mg [Cymbalta 30 MG Capsule] 30 mg PO DAILY Nebivolol HCl 5 MG [Bystolic 5 MG] 10 mg PO HS Rivaroxaban [Xarelto] 2.5 mg PO DAILY Magnesium Oxide [Magnesium] 500 mg PO HS Vortioxetine Hydrobromide [Trintellix] 10 mg PO DAILY Celecoxib 100 mg [celeBREX 100 MG] 100 mg PO BID Naltrexone HCl 50 mg PO DAILY 30 Days #30 tablet Folic Acid 1 mg [Folate 1 mg] 1 mg PO DAILY tablet Forms: Ambulance Transport Record, Transfer Record Inter-Agency
== END 2021-02-24 14:56 | disposition short-term general hospital (02) ==
LOC: ED 11:33 → MED SURG 23:07
PROVIDERS: ADMIT General Practice; ATTEND General Practice
DX: R41.82 Altered mental status, unspecified (principal); N39.0 Urinary tract infection, site not specified; M19.90 Unspecified osteoarthritis, unspecified site; I27.82 Chronic pulmonary embolism; I25.118 Atherosclerotic heart disease of native coronary artery with other forms of angina pectoris; I25.10 Atherosclerotic heart disease of native coronary artery without angina pectoris; I10 Essential (primary) hypertension; F10.10 Alcohol abuse, uncomplicated; F41.9 Anxiety disorder, unspecified; W19.XXXA Unspecified fall, initial encounter; R10.9 Unspecified abdominal pain; Z79.899 Other long term (current) drug therapy; F32.9 Major depressive disorder, single episode, unspecified
CPT/HCPCS: 0241U; 36000; 36415; 70450; 80053; 80307; 81001; 82140; 83690; 84484; 85025; 85610; 85730; 87077; 87086; 87186; 93005; 93041; 93268; 94760; 96372; 96374; 96375; 96376; 97161; 99285; G0378; G0480; P9612; J2060; A9270-GY

== ENCOUNTER 2023-06-19 13:45 | Emergency (ER) | payer MEDICARE, MEDICAID ==
[2023-06-19] MEDS ORDERED: Zofran 4 MG/2 ML VIAL ONE (14:28)
[2023-06-19] MEDS ORDERED: TYLENOL 325 MG ONE (14:28)
[2023-06-19 14:29] LABS: Absolute Neutrophil Ct (ANC) 9.03 x10^3/uL (1.4-6.9); BASOPHIL % 0.3 % (0.0-0.4); Basophil (Absolute #) 0.03 x10^3/uL (0-0.4); Eosinophil % 0.9 % (0.00-5.0); Hematocrit 43.5 % (42-50); Hemoglobin 13.7 g/dL (12.5-18.0); IMMATURE GRAN # 0.04 x10^3u/L (0.00-0.03); IMMATURE GRAN % 0.4 % (0.00-0.4); Lymphocyte (Absolute #) 0.45 x10^3/uL (1.0-4.6); Lymphocytes % 4.2 % (24.0-44.0); Mean Cell Volume 100.9 fL (78-100); Mean Corpuscular Hemoglobin 31.8 pg (26-32); Mean Corpuscular Hgb Concent. 31.5 g/dL (32-36); Mean Platelet Volume 12.7 fL (7.5-11.0); Monocyte (Absolute #) 1.07 x10^3/uL (0.0-1.3); Neutrophil % 84.2 % (36.0-66.0); Platelet Count 103 x10^3/uL (150-450); Red Blood Count 4.31 x10^6/uL (4.1-5.6); Red Cell Distribution Width 14.5 % (11.5-14.0); White Blood Count 10.7 x10^3/uL (4.0-10.5)
[2023-06-19] MEDS: Sodium Chloride 0.9% 1000 ML 1,000 ML IV SCH (14:33)
[2023-06-19] MEDS: TYLENOL 325 MG PO STA (14:34)
[2023-06-19] MEDS: Zofran 4 MG/2 ML VIAL IV ONE (14:34)
[2023-06-19 14:35] LABS: Appearance Cloudy (Clear); Bacteria Moderate /HPF (None Seen); Bilirubin Large (Negative); Blood Small (Negative); Epithelial Cells Rare /HPF (None Seen); Glucose, Urine Negative (Negative); Hyaline Casts NONE SEEN /LPF (0-2); Ketones 40 (Negative); Leukocyte Esterase Small (Negative); Nitrite Negative (Negative); Ph 5.5 (4.6-8.0); Protein,Urine Dip 100 (Negative); WBC 21-50 /HPF (0-5)
--- NOTE | 2023-06-19 14:36 | XRAY ---
CLINICAL HISTORY: fall, confusion TECHNIQUE: An axial non-contrast CT scan of the brain was performed from the skull base to the high parietal region with multiple reformats. COMPARISON: None. FINDINGS: There are hypodense foci noted in the deep white matter bilaterally, suggestive of microvascular ischemic changes. The ventricular system, cortical sulci and basal cisterns are prominent consistent with senile changes. The visualized brain parenchyma shows normal appearance. Reilly-white matter differentiation is maintained. No midline shifts or deformity. No intracerebral or extra axial hematoma. Normal size and configuration of the cerebral ventricles. Normal CT appearance of the posterior fossa structures namely the cerebellar hemispheres, brainstem and cerebellar peduncles. The IACs are unremarkable. The cerebello-pontine angles are clear. The pituitary gland, the pineal gland, the optic chiasm is unremarkable. The osseous structures in the skull base are unremarkable. No definite calvarium fractures. The scanned paranasal sinuses are clear. IMPRESSION: 1. The above-mentioned findings are suggestive of microvascular ischemic changes and senile changes. 2. The rest of the non-enhanced CT study for the brain is unremarkable. Further MRI assessment is recommended if clinically indicated. Electronically Signed by: Júnior Sullivan MD. (06/19/2023 14:32:11 EDT)
[2023-06-19 14:42] LABS: ALKALINE PHOSPHATASE 68 U/L (38-126); ANION GAP 15.3 MEQ/L (5-15); BLOOD UREA NITROGEN 17 mg/dL (9-20); CHLORIDE 99 mmol/L (98-107); Calcium 8.3 mg/dL (8.4-10.2); Carbon Dioxide 24 mmol/L (22-30); EST GLOMERULAR FILTRATION RATE 91.7 ML/MIN; ETHYL ALCOHOL < 10 mg/dL (0-10); Glucose 80 mg/dL (74-106); LIPASE 957 U/L (23-300); Potassium 4.1 mmol/L (3.5-5.1); SGOT/AST 88 U/L (17-59); SGPT/ALT 153 U/L (0-50); SODIUM 134 mmol/L (135-145)
[2023-06-19 14:46] LABS: ADD URINE CULTURE? YES (NO)
[2023-06-19] MEDS ORDERED: LEVOFLOXACIN 750MG/150ML D5W 750 MG/150 ML BAG IV ONE (15:21)
[2023-06-19] MEDS: LEVOFLOXACIN 750MG/150ML D5W 750 MG/150 ML BAG IV STA (15:26)
--- NOTE | 2023-06-19 15:47 | ERPHSYRPT ---
<CORRINE VUONG - Last Filed: 06/20/23 01:11> - History of Present Illness Source: patient, family Exam Limitations: clinical condition Patient Subjective Stated Complaint: C/O increased confusion that started yesterday. states, "he acts this way when he gets a UTI." Patient fell at home yesterday but patient and are both unsure if he hit his head or not. Patient is c/o a headache. Triage Nursing Assessment: Patient brought back to ER in a W/C. He is awake/alert. He is oriented to self and place but confused to time and situati on. He states the year is 1942. Edema noted to BLE; left worse than the right. Patient skin is jaundiced. NO SOB. No cough. 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 reports this happens every time he has UTI. He also fell this morning and questionable history of hitting his head, complaining of mild head and neck pain. Still able to walk with assistance. Patient denies any chest pain or difficulty breathing. He is able to answer few questions but not fully oriented. Denies any abdominal pain nausea or vomiting. Not a good historian and history is limited. He also has a fever 100.8. (CORY CURIEL) Allergies/Adverse Reactions: aspirin Allergy (Verified 06/19/23 14:15) cephalexin [From Keflex] Allergy (Verified 06/19/23 14:15) Penicillins Allergy (Verified 06/19/23 14:15) Home Medications: ALPRAZolam [Alprazolam] 1 tab PO BID 06/19/23 [History] Apixaban [Eliquis] 1 tab PO BID 06/19/23 [History] Cyanocobalamin (Vitamin B-12) [Cyanocobalamin Injection] 1,000 mcg IM WEEKLY 06/19/23 [History] Docusate Sodium 100 mg [Docusate Sodium 100 MG] 1 cap PO BID 06/19/23 [History] Duloxetine HCl 1 cap PO BID 06/19/23 [History] Folic Acid 1 mg [Folate 1 mg] 1 tab PO DAILY 06/19/23 [History] Montelukast Sodium 10 mg [Singulair 10 MG] 1 tab PO DAILY 06/19/23 [History] Naltrexone HCl 1 tab PO DAILY 06/19/23 [History] Nebivolol HCl 1 tab PO DAILY 06/19/23 [History] Sildenafil Citrate [Viagra] 1 tab PO DAILY 06/19/23 [History] Sucralfate 1 gm [Carafate 1 GM] 1 tab PO BID 06/19/23 [History] Tamsulosin HCl 0.4 mg [Flomax 0.4 MG] 1 cap PO DAILY 06/19/23 [History] Thiamine HCl 100 mg [Vitamin B-1 100 mg] 1 tab PO DAILY 06/19/23 [History] Travel Risk - International Travel Have you traveled outside of the country in past 3 weeks: No - Coronavirus Screening Are you exhibiting any of the following symptoms?: Yes Symptoms: Fever, Headaches/Body Aches/Fatigue Close contact with a COVID-19 positive Pt in past 14-21 Days: No - Vaccine Status Have you recieved a Covid-19 vaccination: Yes Postal Carrier: Moderna - Vaccination Dates Date of 2cond Vaccination (if applicable): 2020 <CORY CURIEL - Last Filed: 06/23/23 13:25> - Review of Systems Constitutional: Fever, Chills, Fatigue, Weakness Eyes: No Symptoms Ears, Nose, & Throat: No Symptoms Respiratory: No Symptoms Cardiac: No Symptoms Abdominal/Gastrointestinal: No Symptoms Genitourinary Symptoms: No Symptoms Endocrine: No Symptoms Hematologic/Lymphatic: Blood Clots <CORY CURIEL - Last Filed: 06/23/23 13:25> - Past Medical History Pertinent Past Medical History: Yes Neurological History: Dementia ENT History: No Pertinent History Cardiac History: Coronary Artery Disease Respiratory History: No Pertinent History Endocrine Medical History: No Pertinent History Musculoskeletal History: Arthritis, Fibromyalgia GI Medical History: No Pertinent History History: No Pertinent History Psycho-Social History: Anxiety, Bipolar, Depression, Other Male Reproductive Disorders: Prostate Problems Other Medical History: 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", BPH, Alcohol abuse, PE, PVD - Past Surgical History Past Surgical History: Yes (RUSSEL) Neuro Surgical History: No Pertinent History Cardiac: No Pertinent History Respiratory: No Pertinent History Gastrointestinal: Appendectomy Genitourinary: No Pertinent History Musculoskeletal: Orthopedic Surgery Male Surgical History: Prostate Surgery Other Surgical History: Tumors removed from back, manav filter placed - Social History Smoking Status: Never smoker Exposure to second hand smoke: No Drug Use: none Patient Lives Alone: No <CORY CURIEL - Last Filed: 06/23/23 13:25> - Physical Exam General Appearance: no apparent distress, alert Eye Exam: PERRL/EOMI, scleral icterus Ears, Nose, Throat Exam: normal ENT inspection, pharynx normal Neck Exam: normal inspection, non-tender, supple Respiratory Exam: normal breath sounds, lungs clear Cardiovascular Exam: regular rate/rhythm, normal heart sounds Gastrointestinal/Abdomen Exam: soft, normal bowel sounds, No tenderness Back Exam: normal inspection Extremity Exam: normal inspection, normal range of motion Neurologic Exam: alert, cooperative, metals analyst II-XII nml as tested, sensation nml, No oriented x 3, No normal mood/affect, No nml station & gait (Needs assistance for ambulation), No motor deficits Skin Exam: normal color SpO2 Interpretation: normal SpO2: 91 O2 Delivery: Room Air <VEENACORY - Last Filed: 06/23/23 13:25> - Nursing Vital Signs Nursing Vital Signs: Initial Vital Signs Temperature 100.8 F 06/19/23 14:04 Pulse Rate 62 06/19/23 14:04 Blood Pressure 165/77 06/19/23 14:04 O2 Sat by Pulse Oximetry 93 L 06/19/23 14:04 Pain Scale Pain Intensity 0 - Radiology Exams Chest X-ray Interpretation: Discussed w/ radiologist (Nonacute chest with chronic features.) - CT Exams Cervical Spine CT Interpretation: Tele-radiologist Report (No acute fractures or dislocation. See rest of report.) Head CT Interpretation: Tele-radiologist Report (Microvascular changes and senile changes. The rest of the non-enhanced CT study for the brain is unremarkable.) Abdomen/Pelvis CT Interpretation: Tele-radiologist Report (No acute pancreatitis findings radiologically. See rest of report.) <CORRINE VUONG - Last Filed: 06/20/23 01:11> - Course EKG Interpreted by Me: RATE ([id number]), Sinus Rhythm, Left [place] Deviation, LAFB, NORMAL INTERVALS, Non-specific ST Changes <CORY CURIEL - Last Filed: 06/23/23 13:25> Ordered Tests: Medication Summary Discontinued Medications Generic Name Dose Route Start Last Admin Trade Name Amos PRN Reason Stop Dose Admin Acetaminophen 650 mg 06/19/23 14:26 06/19/23 14:34 Acetaminophen 325 Mg Tablet PO 06/19/23 14:27 650 mg STAT STA Administration Acetaminophen Confirm 06/19/23 14:28 Acetaminophen 325 Mg Tablet Administered 06/19/23 14:29 Dose 650 mg .ROUTE .STK-MED ONE Sodium Chloride 1,000 mls @ 100 mls/hr 06/19/23 14:15 06/20/23 01:43 Sodium Chloride 0.9% 1000 Ml IV 07/19/23 14:14 100 mls/hr .Q10H JACQUELIN Administration Levofloxacin/Dextrose 750 mg in 150 mls @ 100 mls/hr 06/19/23 15:14 06/19/23 16:58 Levofloxacin 750mg/150ml D5w IV 06/19/23 16:43 Infused STAT STA Infusion Levofloxacin/Dextrose Confirm 06/19/23 15:21 Levofloxacin 750mg/150ml D5w Administered 06/19/23 15:22 Dose 750 mg in 150 mls @ ud IV .STK-MED ONE Ondansetron HCl 4 mg 06/19/23 14:26 06/19/23 14:34 Ondansetron Hcl 4 Mg/2 Ml Vial IV 06/19/23 14:27 4 mg STAT ONE Administration Ondansetron HCl Confirm 06/19/23 14:28 Ondansetron Hcl 4 Mg/2 Ml Vial Administered 06/19/23 14:29 Dose 4 mg .ROUTE .STK-MED ONE Lab/Rad Data: Laboratory Result Diagrams 06/19/23 14:20 06/19/23 14:20 Laboratory Results 06/19/23 06/19/23 06/19/23 Range/Units 14:20 14:20 14:20 WBC (4.0-10.5) x10^3/uL RBC (4.1-5.6) x10^6/uL Hgb (12.5-18.0) g/dL Hct (42-50) % MCV (78-100) fL MCH (26-32) pg MCHC (32-36) g/dL RDW (11.5-14.0) % Plt Count (150-450) x10^3/uL MPV (7.5-11.0) fL Gran % (36.0-66.0) % Immature Gran % (Auto) (0.00-0.4) % Nucleat RBC Rel Count (0.00-0.1) % Eos # (Auto) (0-0.5) x10^3/uL Immature Gran # (Auto) (0.00-0.03) x10^3u/L Absolute Lymphs (auto) (1.0-4.6) x10^3/uL Absolute Monos (auto) (0.0-1.3) x10^3/uL Absolute Nucleated RBC (0.00-0.01) x10^3u/L Lymphocytes % (24.0-44.0) % Monocytes % (0.0-12.0) % Eosinophils % (0.00-5.0) % Basophils % (0.0-0.4) % Absolute Granulocytes (1.4-6.9) x10^3/uL Basophils # (0-0.4) x10^3/uL Sodium 134 L (135-145) mmol/L Potassium 4.1 (3.5-5.1) mmol/L Chloride 99 (98-107) mmol/L Carbon Dioxide 24 (22-30) mmol/L Anion Gap 15.3 H (5-15) MEQ/L BUN 17 (9-20) mg/dL Creatinine 0.80 (0.66-1.25) mg/dL Estimated GFR 91.7 ML/MIN Glucose 80 (74-106) mg/dL Lactic Acid (0.4-2.0) Calcium 8.3 L (8.4-10.2) mg/dL Total Bilirubin 6.70 H (0.2-1.3) mg/dL Direct Bilirubin 4.7 H (0.0-0.4) mg/dL AST 88 H (17-59) U/L ALT 153 H (0-50) U/L Alkaline Phosphatase 68 (38-126) U/L Ammonia < 9 L (9-30) umol/L Serum Total Protein 7.0 (6.3-8.2) g/dL Albumin 4.0 (3.5-5.0) g/dL Amylase 126 H (30-110) U/L Lipase 957 H (23-300) U/L Procalcitonin 2.710 H* (0.030-0.080) ng/mL Urine Color (Yellow) Urine Appearance (Clear) Urine pH (4.6-8.0) Ur Specific [place] (1.005-1.030) Urine Protein (Negative) Urine Glucose (UA) (Negative) mg/dL Urine Ketones (Negative) Urine Blood (Negative) Urine Nitrite (Negative) Urine Bilirubin (Negative) Urine Urobilinogen (0.2) mg/dL Ur Leukocyte Esterase (Negative) U Hyaline Cast (Auto) (0-2) /LPF Urine Microscopic RBC (0-5) /HPF Urine Microscopic WBC (0-5) /HPF Ur Epithelial Cells (None Seen) /HPF Urine Bacteria (None Seen) /HPF Urine Culture Reflexed (NO) Ethyl Alcohol < 10 (0-10) mg/dL Slides for Path Review 06/19/23 06/19/23 06/19/23 Range/Units 14:20 14:10 14:07 WBC 10.7 H (4.0-10.5) x10^3/uL RBC 4.31 (4.1-5.6) x10^6/uL Hgb 13.7 (12.5-18.0) g/dL Hct 43.5 (42-50) % MCV 100.9 H (78-100) fL MCH 31.8 (26-32) pg MCHC 31.5 L (32-36) g/dL RDW 14.5 H (11.5-14.0) % Plt Count 103 L (150-450) x10^3/uL MPV 12.7 H (7.5-11.0) fL Gran % 84.2 H (36.0-66.0) % Immature Gran % (Auto) 0.4 (0.00-0.4) % Nucleat RBC Rel Count 0.0 (0.00-0.1) % Eos # (Auto) 0.10 (0-0.5) x10^3/uL Immature Gran # (Auto) 0.04 H (0.00-0.03) x10^3u/L Absolute Lymphs (auto) 0.45 L (1.0-4.6) x10^3/uL Absolute Monos (auto) 1.07 (0.0-1.3) x10^3/uL Absolute Nucleated RBC 0.00 (0.00-0.01) x10^3u/L Lymphocytes % 4.2 L (24.0-44.0) % Monocytes % 10.0 (0.0-12.0) % Eosinophils % 0.9 (0.00-5.0) % Basophils % 0.3 (0.0-0.4) % Absolute Granulocytes 9.03 H (1.4-6.9) x10^3/uL Basophils # 0.03 (0-0.4) x10^3/uL Sodium (135-145) mmol/L Potassium (3.5-5.1) mmol/L Chloride (98-107) mmol/L Carbon Dioxide (22-30) mmol/L Anion Gap (5-15) MEQ/L BUN (9-20) mg/dL Creatinine (0.66-1.25) mg/dL Estimated GFR ML/MIN Glucose (74-106) mg/dL Lactic Acid 1.3 (0.4-2.0) Calcium (8.4-10.2) mg/dL Total Bilirubin (0.2-1.3) mg/dL Direct Bilirubin (0.0-0.4) mg/dL AST (17-59) U/L ALT (0-50) U/L Alkaline Phosphatase (38-126) U/L Ammonia (9-30) umol/L Serum Total Protein (6.3-8.2) g/dL Albumin (3.5-5.0) g/dL Amylase (30-110) U/L Lipase (23-300) U/L Procalcitonin (0.030-0.080) ng/mL Urine Color Dark Yellow (Yellow) Urine Appearance Cloudy A (Clear) Urine pH 5.5 (4.6-8.0) Ur Specific [place] 1.020 (1.005-1.030) Urine Protein 100 A (Negative) Urine Glucose (UA) Negative (Negative) mg/dL Urine Ketones 40 A (Negative) Urine Blood Small A (Negative) Urine Nitrite Negative (Negative) Urine Bilirubin Large A (Negative) Urine Urobilinogen 1.0 A (0.2) mg/dL Ur Leukocyte Esterase Small A (Negative) U Hyaline Cast (Auto) NONE SEEN (0-2) /LPF Urine Microscopic RBC 6-10 A (0-5) /HPF Urine Microscopic WBC 21-50 A (0-5) /HPF Ur Epithelial Cells Rare (None Seen) /HPF Urine Bacteria Moderate A (None Seen) /HPF Urine Culture Reflexed YES (NO) Ethyl Alcohol (0-10) mg/dL Slides for Path Review YES - Progress Progress: unchanged Discussed with DrBelinda: Other (Spoke with Dr. Moore([id number]) who accepted pt for transfer to [facility] as a direct admission through the ER.) Counseled pt/family regarding: lab results, diagnosis, rad results <CORRINE VUONG - Last Filed: 06/20/23 01:11> - Progress Progress Note: 06/19/23 19:[address] Vuong @ 1948: eomi, TM's not injected, pharynx pink, lungs clear, no cardiac rub, abdominal B.S. normal, no abdominal tenderness, alert & cooperative. (CORRINE VUONG) Medical Desision Making - Diagnostic Testing Diagnostic test were ordered, analyzed, and reviewed by me: Yes Radiological Interpretation: Teleradiologist Report <CORRINE VUONG - Last Filed: 06/20/23 01:11> - Departure Departure Disposition: Transfer ([facility]) Critical Care Time: No <CORRINE VUONG - Last Filed: 06/20/23 01:11> <CORY CURIEL - Last Filed: 06/23/23 13:25> - Departure Clinical Impression: Hyperbilirubinemia, Fall, UTI (urinary tract infection), Fever Condition: Stable Referrals: JAQUELIN FERNANDEZ MD [Primary Care Provider] - Follow up/PCP as directed
--- NOTE | 2023-06-19 15:58 | XRAY ---
CLINICAL HISTORY: fall TECHNIQUE: Thin axial CT of the cervical spine was performed with sagittal and coronal reconstructions without contrast. Images were sent to PACs for interpretation. COMPARISON: None. FINDINGS: Reduced cervical lordosis. No acute fractures or dislocation. Spondylodegenerative changes of the cervical spine with large anterior bridging osteophytes, multiple disc space narrowing more prominent at C5-C6 and C6-C7 showing reduced disc heights and irregular endplates. Level by level analysis: C2-C3: Small central disc protrusion is seen measuirng 2 mm with no spinal canal or neuroforaminal stenosis. C3-C4: There is a diffuse posterior disc bulge, encroaching upon the anterior subarachnoid space, with no exit neural spinal canal narrowing. Disc bulge measures about 2.4 mm. No spinal canal stenosis is seen. C4-C5: There is a diffuse posterior disc bulge aggravated by osteophytes formation, encroaching upon the exit neural foramina bilaterally. Disc bulge measures about 1.5 mm. No spinal canal stenosis is seen. C5-C6: There is a diffuse posterior disc bulge aggravated by osteophytes formation, encroaching upon the exit neural foramina bilaterally. Disc bulge measures about 2.1 mm. No spinal canal stenosis is seen. C6-C7: There is a diffuse posterior disc bulge aggravated by osteophytes formation, encroaching upon the exit neural foramina bilaterally. Disc bulge measures about 2.2 mm. No spinal canal stenosis is seen. Degenerative changes involving facet and uncovertebral joints bilaterally at multiple levels. No abnormal para-spinal soft tissue shadows seen. IMPRESSION: 1. No acute fractures or dislocation. 2. 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 Electronically Signed by: Júnior Sullivan MD. (06/19/2023 15:54:56 EDT)
--- NOTE | 2023-06-19 18:34 | XRAY ---
Indication: Altered mental status. Comparison: February 14, 2021 Portable chest is better inflated and now clear. Again incidental tiny left costophrenic angle calcified granuloma. Heart not enlarged. Bony thorax intact again with mild degenerative changes and old bilateral rib fractures. Impression: Nonacute chest with chronic features.
--- NOTE | 2023-06-19 19:06 | XRAY ---
CLINICAL HISTORY: jaundice/pancreatitis/ams TECHNIQUE: An axial CT scan of the abdomen and pelvis was performed with IV contrast, Coronal and sagittal reconstructive images were also obtained. COMPARISON: None. FINDINGS: Lung bases reveal a calcified nodule within the inferior lingular segment measuring 6 mm. There is bilateral pleural thickening and possible trace of pleural fluid. Abdomen: A well-defined hypodense cyst is noted within segment 5 of the liver measuring 1.9 x 1.4 cm. Two duodenal diverticuli are seen within the second part of the duodenum measuring 2.3 and 1.5 cm. Two linear metallic high densities are seen within the stomach measuring approximately 1.5 cm. The pancreas is unremarkable. IVC filter is noted. A few small distal colon diverticuli are noted without inflammation findings. Multiple small splenic calcifications are noted. The liver is normal in size. The intrahepatic biliary radicals and the bile ducts are normal. The gallbladder is normal. No pericholecystic fluid collection or radio-dense calculi in the gall bladder. The appendix is not identified. There are no inflammation findings around the appendix location. The adrenal glands are unremarkable. The kidneys are unremarkable. They are normal in size and shape. No calculi or hydronephrosis is seen. The ascending colon, the transverse colon, the descending colon, visualized small bowel loops are unremarkable. There is no evidence of significant enlargement of the mesenteric or retroperitoneal lymph nodes. The osseous structures in the lower rib cage and lumbar spine show no abnormality. Pelvis: A few bladder diverticuli are seen, the largest measuring 6.4 x 4.8 cm. The urinary bladder is unremarkable. The rectosigmoid colon is unremarkable. The prostate is unremarkable The pelvic vasculature is unremarkable. No evidence of pelvic lymphadenopathy. No definite bony abnormalities could be depicted. IMPRESSION: 1. No acute pancreatitis findings radiologically 2. A well-defined hypodense cyst within segment 5 of the liver. 3. Two duodenal diverticuli within the second part of the duodenum without inflammation findings. 4. Two linear metallic high densities within the stomach, suspicious of foreign bodies, for clinical correlation 5. A few small distal colon diverticula, without inflammation findings. 6. Multiple small splenic calcifications may represent previous granulomatous infection 7. A few noncomplicated bladder diverticuli 8. Lung bases: a calcified nodule within the inferior lingular segment, may represent previous granulomatous infection Electronically Signed by: Júnior Sullivan MD. (06/19/2023 19:02:05 EDT)
[2023-06-19 19:45] LABS: Slide Review 1 YES
[2023-06-19 20:04] LABS: AMYLASE 126 U/L (30-110); Direct Bilirubin 4.7 mg/dL (0.0-0.4)
[2023-06-20 09:57] VITALS: TEMP 99.4
[2023-06-20 10:18] VITALS: BP 123/53; PULSE 57; RESP 16
[2023-06-23 13:26] VITALS: O2SAT 91
== END 2023-06-20 03:40 | disposition short-term general hospital (02) ==
LOC: ED 13:45
DX: N39.0 Urinary tract infection, site not specified (principal); R41.82 Altered mental status, unspecified; E80.6 Other disorders of bilirubin metabolism; R50.9 Fever, unspecified; R51.9 Headache, unspecified; W19.XXXA Unspecified fall, initial encounter; R60.0 Localized edema; I10 Essential (primary) hypertension; Z86.718 Personal history of other venous thrombosis and embolism; Z79.01 Long term (current) use of anticoagulants; Z79.899 Other long term (current) drug therapy; Z20.828 Contact with and (suspected) exposure to other viral communicable diseases
CPT/HCPCS: 36000; 36415; 70450; 71045; 72125; 74177; 80053; 81001; 82077; 82140; 82150; 82248; 83605; 83690; 84145; 85025; 87040; 87077; 87086; 87186; 93005; 93041; 96374; 99285; J1956; J2405; A9270-GY

== ENCOUNTER 2024-06-10 09:27 | Observation (INO) | payer MEDICARE ==
--- NOTE | 2024-06-10 09:53 | ERPHSYRPT ---
- History of Present Illness Time Seen by Provider: 06/10/24 09:45 Source: patient, family Exam Limitations: no limitations Physician History: The patient presents with severe neck pain and multiple joint complaints following a fall. He is accompanied by his legal , who is unable to provide full-time care due to work obligations. He was referred by his family doctor for further evaluation of his neck pain. Thirteen days ago, he experienced a fall resulting in a dislocated left shoulder. Since the incident, he has had persistent and severe neck pain, describing it as having a 'knot' in his neck. He has visited the emergency room and his family doctor, but no definitive diagnosis has been made yet. In addition to neck pain, he has bilateral knee pain and numbness in his left hand, which he attributes to the shoulder injury. He also mentions having arthritis, particularly affecting his back, and describes his knees as being painful and difficult to move. He experiences episodes of near syncope, describing them as 'drifting in and out,' and his notes he has panic attacks and forgetfulness, similar to previous episodes when he had a urinary tract infection (UTI). He feels 'very sick' to his stomach and suspects another UTI, as he has a history of catheter use and was hospitalized for a severe UTI in the past. Regarding medication, he is on naltrexone, which he takes for alcohol cravings and possibly pain management, although he has not taken it today. This medication limits his options for pain relief, as it blocks opioid receptors. He lives alone and expresses difficulty managing his condition without assistance. His , although legally to him, works seven days a week and cannot provide the necessary care. He has not engaged in any physical therapy or other treatments since the fall. Timing/Duration: week(s) (2) Severity: moderate Modifying Factors: Worsens With: movement Associated Symptoms: nausea, loss of appetite, weakness, No vomiting, No abdominal pain, No shortness of breath, No fever Allergies/Adverse Reactions: aspirin Allergy (Verified 06/10/24 09:34) cephalexin [From Keflex] Allergy (Verified 06/10/24 09:34) Penicillins Allergy (Verified 06/10/24 09:34) Home Medications: ALPRAZolam [Alprazolam] 1 tab PO BID 06/19/23 [History] Apixaban [Eliquis] 1 tab PO BID 06/19/23 [History] Cyanocobalamin (Vitamin B-12) [Cyanocobalamin Injection] 1,000 mcg IM WEEKLY 06/19/23 [History] Docusate Sodium 100 mg [Docusate Sodium 100 MG] 1 cap PO BID 06/19/23 [History] Duloxetine HCl 1 cap PO BID 06/19/23 [History] Folic Acid 1 mg [Folate 1 mg] 1 tab PO DAILY 06/19/23 [History] Montelukast Sodium 10 mg [Singulair 10 MG] 1 tab PO DAILY 06/19/23 [History] Naltrexone HCl 1 tab PO DAILY 06/19/23 [History] Nebivolol HCl 1 tab PO DAILY 06/19/23 [History] Sildenafil Citrate [Viagra] 1 tab PO DAILY 06/19/23 [History] Sucralfate 1 gm [Carafate 1 GM] 1 tab PO BID 06/19/23 [History] Tamsulosin HCl 0.4 mg [Flomax 0.4 MG] 1 cap PO DAILY 06/19/23 [History] Thiamine HCl 100 mg [Vitamin B-1 100 mg] 1 tab PO DAILY 06/19/23 [History] Hx Tetanus, Diphtheria Vaccination/Date Given: Yes Hx Influenza Vaccination/Date Given: Yes Hx Pneumococcal Vaccination/Date Given: Yes - Review of Systems All Other Systems: Reviewed and Negative - Past Medical History Pertinent Past Medical History: Yes Neurological History: Dementia ENT History: No Pertinent History Cardiac History: Coronary Artery Disease Respiratory History: No Pertinent History Endocrine Medical History: No Pertinent History Musculoskeletal History: Arthritis, Fibromyalgia GI Medical History: No Pertinent History History: No Pertinent History Psycho-Social History: Anxiety, Bipolar, Depression, Other Male Reproductive Disorders: Prostate Problems Other Medical History: 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", BPH, Alcohol abuse, PE, PVD,dislocated shoulder left 05/2024 - Past Surgical History Past Surgical History: Yes (RUSSEL) Neuro Surgical History: No Pertinent History Cardiac: No Pertinent History Respiratory: No Pertinent History Gastrointestinal: Appendectomy Genitourinary: No Pertinent History Musculoskeletal: Orthopedic Surgery Male Surgical History: Prostate Surgery Other Surgical History: Tumors removed from back, manav filter placed - Social History Smoking Status: Never smoker Exposure to second hand smoke: No Drug Use: none Patient Lives Alone: No - Nursing Vital Signs Nursing Vital Signs: Initial Vital Signs Temperature 97.7 F 06/10/24 09:36 Pulse Rate 62 06/10/24 09:36 Respiratory Rate 18 06/10/24 09:36 Blood Pressure 169/117 06/10/24 09:36 O2 Sat by Pulse Oximetry 100 06/10/24 09:36 Pain Scale Pain Intensity [Generalized] 5 Pain Intensity 4 - Physical Exam General Appearance: no apparent distress, anxiety Eye Exam: PERRL/EOMI, eyes nml inspection Ears, Nose, Throat Exam: normal ENT inspection Neck Exam: normal inspection, supple, full range of motion Respiratory Exam: normal breath sounds, lungs clear, airway intact, No respiratory distress Cardiovascular Exam: regular rate/rhythm, normal heart sounds, capillary refill <2 sec, No edema Gastrointestinal/Abdomen Exam: soft, normal bowel sounds, No tenderness, No distention, No guarding, No rebound Extremity Exam: limited range of motion, tenderness, other (bilateral lower extremity weakness, difficult to stand and ambulate ) Neurologic Exam: alert, oriented x 3, cooperative, radiopharmacist II-XII nml as tested, sensation nml, confusion, No motor deficits Skin Exam: normal color, warm, dry, No rash SpO2 Interpretation: normal SpO2: 100 O2 Delivery: Room Air - Course Nursing assessment & vital signs reviewed: Yes Ordered Tests: Active Orders 24 hr Category Date Time Status [place] STAT Care 06/10/24 09:54 Active IV Insertion STAT Care 06/10/24 09:54 Active Pulse Oximetry (ED) STAT Care 06/10/24 09:54 Active CERVICAL SPINE WO CONTRAST [CT] Stat Exams 06/10/24 11:00 Completed BLOOD CULTURE Stat Lab 06/10/24 10:53 Received CBC W DIFF Stat Lab 06/10/24 10:31 Completed CK-Creatinine Phosphokinase Stat Lab 06/10/24 10:31 Completed CMP Stat Lab 06/10/24 10:31 Completed CULTURE,URINE Stat Lab 06/10/24 10:22 Ordered Erythrocyte Sedimentation Rate Stat Lab 06/10/24 10:31 Completed Lactic Acid Stat Lab 06/10/24 10:31 Completed TROPONIN Q4H Lab 06/10/24 10:31 Completed TROPONIN Q4H Lab 06/10/24 14:00 Ordered TROPONIN Q4H Lab 06/10/24 18:00 Ordered TROPONIN Q4H Lab 06/10/24 22:00 Ordered TSH, 3RD Generation Stat Lab 06/10/24 10:31 Completed UA W/RFX UR CULTURE Stat Lab 06/10/24 10:22 Completed Medication Summary Generic Name Dose Route Start Last Admin Trade Name Amos PRN Reason Stop Dose Admin Levofloxacin 750 mg 06/11/24 11:33 06/10/24 11:40 Levofloxacin 500 Mg Tablet PO 06/11/24 11:34 750 mg STAT ONE Administration Discontinued Medications Generic Name Dose Route Start Last Admin Trade Name Amos PRN Reason Stop Dose Admin Acetaminophen 975 mg 06/10/24 09:56 06/10/24 10:09 Acetaminophen 325 Mg Tablet PO 06/10/24 09:57 975 mg STAT STA Administration Acetaminophen Confirm 06/10/24 10:08 Acetaminophen 325 Mg Tablet Administered 06/10/24 10:09 Dose 975 mg .ROUTE .STK-MED ONE Droperidol 1.25 mg 06/10/24 09:57 06/10/24 10:09 Droperidol 5 Mg/2 Ml Vial IV 06/10/24 09:58 1.25 mg STAT ONE Administration Droperidol Confirm 06/10/24 10:08 Droperidol 5 Mg/2 Ml Vial Administered 06/10/24 10:09 Dose 5 mg .ROUTE .STK-MED ONE Levofloxacin/Dextrose 750 mg in 150 mls @ 100 mls/hr 06/10/24 09:59 06/10/24 11:41 Levofloxacin 750mg/150ml D5w IV 06/10/24 11:28 Not Given STAT STA Levofloxacin Confirm 06/10/24 11:38 Levofloxacin 500 Mg Tablet Administered 06/10/24 11:39 Dose 500 mg .ROUTE .STK-MED ONE Levofloxacin Confirm 06/10/24 11:41 Levofloxacin 250 Mg Tab Administered 06/10/24 11:42 Dose 250 mg .ROUTE .STK-MED ONE Lab/Rad Data: Laboratory Result Diagrams 06/10/24 10:31 06/10/24 10:31 Laboratory Results 06/10/24 06/10/24 06/10/24 Range/Units 11:10 10:31 10:31 WBC (4.23-9.07) x10^3/uL RBC (4.63-6.08) x10^6/uL Hgb (13.7-17.5) g/dL Hct (40.1-51.0) % MCV (79.0-92.2) fL MCH (25.7-32.2) pg MCHC (32.3-36.5) g/dL RDW (11.6-14.4) % Plt Count (163-337) x10^3/uL MPV (9.4-12.4) fL Gran % (34.0-67.9) % Immature Gran % (Auto) (0.001-0.429) % Nucleat RBC Rel Count (0.00-0.2) % Eos # (Auto) (0.04-0.54) x10^3/uL Immature Gran # (Auto) (0.001-0.031) x10^3u/L Absolute Lymphs (auto) (1.32-3.57) x10^3/uL Absolute Monos (auto) (0.30-0.82) x10^3/uL Absolute Nucleated RBC (0.00-0.012) x10^3u/L Lymphocytes % (21.8-53.1) % Monocytes % (5.3-12.2) % Eosinophils % (0.8-7.0) % Basophils % (0.2-1.2) % Absolute Granulocytes (1.78-5.38) x10^3/uL Basophils # (0.01-0.08) x10^3/uL ESR (0-15) mm/hr Sodium (135-145) mmol/L Potassium (3.5-5.1) mmol/L Chloride (98-107) mmol/L Carbon Dioxide (22-30) mmol/L Anion Gap (5-15) MEQ/L BUN (9-20) mg/dL Creatinine (0.66-1.25) mg/dL Estimated GFR ML/MIN Glucose (74-106) mg/dL Lactic Acid (0.4-2.0) Calcium (8.4-10.2) mg/dL Total Bilirubin (0.2-1.3) mg/dL AST (17-59) U/L ALT (0-50) U/L Alkaline Phosphatase (38-126) U/L Creatine Kinase (55-170) U/L Troponin I < 0.012 (0.000-0.033) ng/mL Serum Total Protein (6.3-8.2) g/dL Albumin (3.5-5.0) g/dL Free T4 1.21 (0.78-2.19) ng/dL TSH 3rd Generation (0.470-4.680) mIU/L Urine Color (Yellow) Urine Appearance (Clear) Urine pH (4.6-8.0) Ur Specific [place] (1.005-1.030) Urine Protein (Negative) Urine Glucose (UA) (Negative) mg/dL Urine Ketones (Negative) Urine Blood (Negative) Urine Nitrite (Negative) Urine Bilirubin (Negative) Urine Urobilinogen (0.2) mg/dL Ur Leukocyte Esterase (Negative) U Hyaline Cast (Auto) (0-2) /LPF Urine Microscopic RBC (0-5) /HPF Urine Microscopic WBC (0-5) /HPF Ur Epithelial Cells (None Seen) /HPF Calcium Oxalate Crystal (None Seen) /HPF Urine Bacteria (None Seen) /HPF Urine Culture Reflexed (NO) Influenza Type A Ag NEGATIVE (NEGATIVE) Influenza Type B Ag NEGATIVE (NEGATIVE) RSV (PCR) NEGATIVE (NEGATIVE) SARS-CoV-2 (PCR) NEGATIVE (NEGATIVE) 06/10/24 06/10/24 06/10/24 Range/Units 10:31 10:31 10:31 WBC 7.3 (4.23-9.07) x10^3/uL RBC 4.99 (4.63-6.08) x10^6/uL Hgb 15.8 (13.7-17.5) g/dL Hct 49.6 (40.1-51.0) % MCV 99.4 H (79.0-92.2) fL MCH 31.7 (25.7-32.2) pg MCHC 31.9 L (32.3-36.5) g/dL RDW 13.9 (11.6-14.4) % Plt Count 222 (163-337) x10^3/uL MPV 11.1 (9.4-12.4) fL Gran % 73.6 H (34.0-67.9) % Immature Gran % (Auto) 0.4 (0.001-0.429) % Nucleat RBC Rel Count 0.0 (0.00-0.2) % Eos # (Auto) 0.33 (0.04-0.54) x10^3/uL Immature Gran # (Auto) 0.03 (0.001-0.031) x10^3u/L Absolute Lymphs (auto) 0.90 L (1.32-3.57) x10^3/uL Absolute Monos (auto) 0.61 (0.30-0.82) x10^3/uL Absolute Nucleated RBC 0.00 (0.00-0.012) x10^3u/L Lymphocytes % 12.4 L (21.8-53.1) % Monocytes % 8.4 (5.3-12.2) % Eosinophils % 4.5 (0.8-7.0) % Basophils % 0.7 (0.2-1.2) % Absolute Granulocytes 5.35 (1.78-5.38) x10^3/uL Basophils # 0.05 (0.01-0.08) x10^3/uL ESR 6 (0-15) mm/hr Sodium 136 (135-145) mmol/L Potassium 4.6 (3.5-5.1) mmol/L Chloride 96 L (98-107) mmol/L Carbon Dioxide 26 (22-30) mmol/L Anion Gap 18.4 H (5-15) MEQ/L BUN 20 (9-20) mg/dL Creatinine 0.75 (0.66-1.25) mg/dL Estimated GFR 92.9 ML/MIN Glucose 100 (74-106) mg/dL Lactic Acid 2.7 H (0.4-2.0) Calcium 9.6 (8.4-10.2) mg/dL Total Bilirubin 1.00 (0.2-1.3) mg/dL AST 38 (17-59) U/L ALT 52 H (0-50) U/L Alkaline Phosphatase 56 (38-126) U/L Creatine Kinase 36 L (55-170) U/L Troponin I (0.000-0.033) ng/mL Serum Total Protein 7.3 (6.3-8.2) g/dL Albumin 4.9 (3.5-5.0) g/dL Free T4 (0.78-2.19) ng/dL TSH 3rd Generation 1.342 (0.470-4.680) mIU/L Urine Color (Yellow) Urine Appearance (Clear) Urine pH (4.6-8.0) Ur Specific [place] (1.005-1.030) Urine Protein (Negative) Urine Glucose (UA) (Negative) mg/dL Urine Ketones (Negative) Urine Blood (Negative) Urine Nitrite (Negative) Urine Bilirubin (Negative) Urine Urobilinogen (0.2) mg/dL Ur Leukocyte Esterase (Negative) U Hyaline Cast (Auto) (0-2) /LPF Urine Microscopic RBC (0-5) /HPF Urine Microscopic WBC (0-5) /HPF Ur Epithelial Cells (None Seen) /HPF Calcium Oxalate Crystal (None Seen) /HPF Urine Bacteria (None Seen) /HPF Urine Culture Reflexed (NO) Influenza Type A Ag (NEGATIVE) Influenza Type B Ag (NEGATIVE) RSV (PCR) (NEGATIVE) SARS-CoV-2 (PCR) (NEGATIVE) 06/10/24 Range/Units 10:22 WBC (4.23-9.07) x10^3/uL RBC (4.63-6.08) x10^6/uL Hgb (13.7-17.5) g/dL Hct (40.1-51.0) % MCV (79.0-92.2) fL MCH (25.7-32.2) pg MCHC (32.3-36.5) g/dL RDW (11.6-14.4) % Plt Count (163-337) x10^3/uL MPV (9.4-12.4) fL Gran % (34.0-67.9) % Immature Gran % (Auto) (0.001-0.429) % Nucleat RBC Rel Count (0.00-0.2) % Eos # (Auto) (0.04-0.54) x10^3/uL Immature Gran # (Auto) (0.001-0.031) x10^3u/L Absolute Lymphs (auto) (1.32-3.57) x10^3/uL Absolute Monos (auto) (0.30-0.82) x10^3/uL Absolute Nucleated RBC (0.00-0.012) x10^3u/L Lymphocytes % (21.8-53.1) % Monocytes % (5.3-12.2) % Eosinophils % (0.8-7.0) % Basophils % (0.2-1.2) % Absolute Granulocytes (1.78-5.38) x10^3/uL Basophils # (0.01-0.08) x10^3/uL ESR (0-15) mm/hr Sodium (135-145) mmol/L Potassium (3.5-5.1) mmol/L Chloride (98-107) mmol/L Carbon Dioxide (22-30) mmol/L Anion Gap (5-15) MEQ/L BUN (9-20) mg/dL Creatinine (0.66-1.25) mg/dL Estimated GFR ML/MIN Glucose (74-106) mg/dL Lactic Acid (0.4-2.0) Calcium (8.4-10.2) mg/dL Total Bilirubin (0.2-1.3) mg/dL AST (17-59) U/L ALT (0-50) U/L Alkaline Phosphatase (38-126) U/L Creatine Kinase (55-170) U/L Troponin I (0.000-0.033) ng/mL Serum Total Protein (6.3-8.2) g/dL Albumin (3.5-5.0) g/dL Free T4 (0.78-2.19) ng/dL TSH 3rd Generation (0.470-4.680) mIU/L Urine Color Yellow (Yellow) Urine Appearance Turbid A (Clear) Urine pH 7.0 (4.6-8.0) Ur Specific [place] 1.020 (1.005-1.030) Urine Protein Negative (Negative) Urine Glucose (UA) Negative (Negative) mg/dL Urine Ketones Negative (Negative) Urine Blood Small A (Negative) Urine Nitrite Positive A (Negative) Urine Bilirubin Negative (Negative) Urine Urobilinogen 1.0 A (0.2) mg/dL Ur Leukocyte Esterase Large A (Negative) U Hyaline Cast (Auto) 6-10 A (0-2) /LPF Urine Microscopic RBC 11-20 A (0-5) /HPF Urine Microscopic WBC >100 A (0-5) /HPF Ur Epithelial Cells Rare (None Seen) /HPF Calcium Oxalate Crystal 3-5 A (None Seen) /HPF Urine Bacteria Many A (None Seen) /HPF Urine Culture Reflexed ORDERED SEPARATELY (NO) Influenza Type A Ag (NEGATIVE) Influenza Type B Ag (NEGATIVE) RSV (PCR) (NEGATIVE) SARS-CoV-2 (PCR) (NEGATIVE) - Progress Progress Note: Patient presents with chonic pain and weakness for the past 2 weeks. He lives alone and states he can't take care of himself anymore. Patient reports neck pain, nausea, dysuria and generalized body pain. 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 Denies recent alcohol use. No focal deficits, change in speech or difficulty swallowing. Patient has indwelling catheter for BPH. Changed monthly at urology, last change 05/24, patient is difficult cath so exchange deferred today. Workup for pain/generalized weakness - CBC, CMP, Troponin, BNP, ESR, TSH, free T4, lactate, blood cx x 2 - CT cervical spine w/o - Droperidol and Tylenol given to help with pain and nausea - Levofloxacin empirically started due to likely UTI Dr. Pelletier accepts for admission at 1220. - Departure Departure Disposition: Observation Clinical Impression: Complicated UTI (urinary tract infection), Generalized weakness, Difficulty in walking, DDD (degenerative disc disease), cervical Condition: Good Critical Care Time: No Referrals: JAQUELIN FERNANDEZ MD [Primary Care Provider] - Follow up/PCP as directed Instructions: Urinary tract infections in adults, How to Care for Your Ambrose Catheter, Male
[2024-06-10] MEDS ORDERED: Inapsine 5 MG/2 ML ONE (10:08)
[2024-06-10] MEDS ORDERED: TYLENOL 325 MG ONE (10:08)
[2024-06-10] MEDS: TYLENOL 325 MG PO STA (10:09)
[2024-06-10] MEDS: Inapsine 5 MG/2 ML IV ONE (10:09)
[2024-06-10 10:58] LABS: Absolute Neutrophil Ct (ANC) 5.35 x10^3/uL (1.78-5.38); BASOPHIL % 0.7 % (0.2-1.2); Basophil (Absolute #) 0.05 x10^3/uL (0.01-0.08); Eosinophil % 4.5 % (0.8-7.0); Eosinophil (Absolute #) 0.33 x10^3/uL (0.04-0.54); Hematocrit 49.6 % (40.1-51.0); Hemoglobin 15.8 g/dL (13.7-17.5); IMMATURE GRAN # 0.03 x10^3u/L (0.001-0.031); IMMATURE GRAN % 0.4 % (0.001-0.429); Lymphocytes % 12.4 % (21.8-53.1); Mean Cell Volume 99.4 fL (79.0-92.2); Mean Corpuscular Hemoglobin 31.7 pg (25.7-32.2); Mean Corpuscular Hgb Concent. 31.9 g/dL (32.3-36.5); Mean Platelet Volume 11.1 fL (9.4-12.4); Monocyte (Absolute #) 0.61 x10^3/uL (0.30-0.82); Monocytes % 8.4 % (5.3-12.2); Neutrophil % 73.6 % (34.0-67.9); Platelet Count 222 x10^3/uL (163-337); Red Blood Count 4.99 x10^6/uL (4.63-6.08); Red Cell Distribution Width 13.9 % (11.6-14.4); White Blood Count 7.3 x10^3/uL (4.23-9.07)
[2024-06-10 11:05] LABS: Erythrocyte Sedimentation Rate 6 mm/hr (0-15)
[2024-06-10 11:25] LABS: Appearance Turbid (Clear); Bacteria Many /HPF (None Seen); Bilirubin Negative (Negative); Blood Small (Negative); Epithelial Cells Rare /HPF (None Seen); Glucose, Urine Negative (Negative); Ketones Negative (Negative); Leukocyte Esterase Large (Negative); Nitrite Positive (Negative); Protein,Urine Dip Negative (Negative); WBC >100 /HPF (0-5)
[2024-06-10] MEDS ORDERED: Levofloxacin 500 MG Tablet ONE (11:38)
[2024-06-10] MEDS: Levofloxacin 500 MG Tablet PO ONE (11:40)
[2024-06-10] MEDS: LEVOFLOXACIN 750MG/150ML D5W 750 MG/150 ML BAG IV STA (11:41)
[2024-06-10] MEDS ORDERED: Levofloxacin 250MG Tablet ONE (11:41)
[2024-06-10 11:44] LABS: ALBUMIN 4.9 g/dL (3.5-5.0); ANION GAP 18.4 MEQ/L (5-15); Calcium 9.6 mg/dL (8.4-10.2); Creatinine 1 0.75 mg/dL (0.66-1.25); EST GLOMERULAR FILTRATION RATE 92.9 ML/MIN; Potassium 4.6 mmol/L (3.5-5.1); TSH, 3RD Generation 1.342 mIU/L (0.470-4.680); Total Protein 7.3 g/dL (6.3-8.2)
[2024-06-10 11:48] LABS: INFLUENZA A NEGATIVE (NEGATIVE); INFLUENZA B NEGATIVE (NEGATIVE); RESPIRATORY SYNCTIAL VIRUS NEGATIVE (NEGATIVE); SARS-CoV-2 Xpert Express NEGATIVE (NEGATIVE)
--- NOTE | 2024-06-10 12:06 | XRAY ---
CLINICAL HISTORY: neck pain, fall COMPARISON: 06/19/2023 TECHNIQUE: Thin axial CT of the cervical spine was performed with sagittal and coronal reconstructions without contrast. One of the following dose reduction techniques was utilized for this exam.Automated exposure control, adjustment of the mA and/or kV according to patient size, and use of iterative reconstruction. FINDINGS: Preserved cervical lordosis. No acute fractures or dislocation. Spondylodegenerative changes of the cervical spine with large anterior bridging osteophytes, multiple disc space narrowing more prominent at C4-C5, C5-C6 and C6-C7 showing reduced disc heights, irregular endplates. and vaccum phenomenon Level by level analysis: C2-C3: central disc protrusion is seen with marginal osteophytes are seen causing mild spinal canal and neuroforaminal stenosis. C3-C4: There is a diffuse posterior disc bulge, encroaching upon the anterior subarachnoid space, with no exit neural spinal canal narrowing. No spinal canal stenosis is seen. C4-C5: There is a diffuse posterior disc bulge aggravated by osteophytes formation, mildly encroaching upon the exit neural foramina bilaterally more on the left. Mild spinal canal stenosis is seen. C5-C6: There is a diffuse posterior disc bulge aggravated by osteophytes formation, moderately encroaching upon the exit neural foramina bilaterally. Mild spinal canal stenosis is seen. C6-C7: There is a diffuse posterior disc bulge aggravated by osteophytes formation, mildly encroaching upon the exit neural foramina bilaterally. Mild spinal canal stenosis is seen. Degenerative changes involving facet and uncovertebral joints bilaterally at multiple levels. No abnormal para-spinal soft tissue shadows seen. IMPRESSION: 1. No acute fractures or dislocation. 2. Cervical spondylotic changes show mild progression with newly developed gas lucecies of vaccum phenomena, 3. Stable multilevel disc/ osteophyte complex disease as described. Electronically Signed by: Júnior Sullivan MD. (06/10/2024 12:01:24 EST)
[2024-06-10] MEDS: xanAX 0.25 MG PO ONE (13:55)
--- NOTE | 2024-06-10 14:43 | PCM.HP ---
History of Present Illness - Chief Complaint Chief Complaint: UTI Date: 06/10/24 History of Present Illness: is a 78 year old male with PMHX of migraines, PVD, CAD, DJD, OA, fibromyalgia, GERD, bipolar, anxiety, depression, BPH, and alcohol abuse. The patient presented today with severe neck pain and multiple joint complaints following a fall. He is accompanied by his legal , who, due to work obligations, is unable to provide full-time care. Referred by his family doctor for further evaluation of his persistent neck pain, he describes the sensation as having a 'knot' in his neck. The pain began thirteen days ago after a fall that resulted in a dislocated left shoulder. Despite visits to the emergency room and his family doctor, no definitive diagnosis has been made. In addition to his neck pain, he reports bilateral knee pain and numbness in his left hand, which he attributes to the shoulder injury. He also has arthritis, particularly affecting his back, and describes his knees as painful and difficult to move. He experiences episodes of near syncope, describing them as 'drifting in and out,' and his notes episodes of panic attacks and forgetfulness, similar to previous occurrences when he had a urinary tract infection (UTI). He currently feels 'very sick' to his stomach and suspects another UTI, given his history of catheter use and a past hospitalization for a severe UTI. His medication regimen includes naltrexone, which he takes for alcohol cravings and possibly pain management. However, he has not taken it today. This medication limits his pain relief options as it blocks opioid receptors. Living alone, he struggles to manage his condition without assistance. Although legally , his works seven days a week and cannot provide the necessary care. Since the fall, he has not engaged in any physical therapy or other treatments. He is not wanting placement and would like HHC and possible OP PT. Will have PT eval in AM for needs. Reji rome CM assist with HHC. Rudolph gave for anxiety. Staff have been unable to get an IV on the pt so will start oral meds for a UTI. Staff explain urine is foul smelling and mercado cath changed when arrived to the floor per protocol. UA with C& S will be checked. - Review of Systems Constitutional: No Fever, No Chills Eyes: No Symptoms Ears, Nose, & Throat: No Symptoms Respiratory: No Cough, No Short Of Breath Cardiac: No Chest Pain, No Edema, No Syncope Abdominal/Gastrointestinal: Abdominal Pain, No Nausea, No Vomiting, No Diarrhea Genitourinary Symptoms: Other (foul smelling urine), No Dysuria Musculoskeletal: Arthralgias, Fall, Joint Pain, No Back Pain, No Neck Pain Skin: No Rash Neurological: No Dizziness, No Focal Weakness, No Sensory Changes Psychological: No Symptoms, Anxiety Endocrine: No Symptoms Hematologic/Lymphatic: No Symptoms Immunological/Allergic: No Symptoms Medications & Allergies Home Medications: Home Medication List Apixaban [Eliquis] 5 mg PO BID 06/19/23 [History Confirmed 06/10/24] Docusate Sodium 100 mg [Docusate Sodium 100 MG] 100 mg PO BID 06/19/23 [History Confirmed 06/10/24] Duloxetine HCl 20 mg PO BID 06/19/23 [History Confirmed 06/10/24] Montelukast Sodium 10 mg [Singulair 10 MG] 10 mg PO DAILY 06/19/23 [History Confirmed 06/10/24] Naltrexone HCl 50 mg PO DAILY 06/19/23 [History Confirmed 06/10/24] Nebivolol HCl 10 mg PO DAILY 06/19/23 [History Confirmed 06/10/24] Tamsulosin HCl 0.4 mg [Flomax 0.4 MG] 0.4 mg PO DAILY 06/19/23 [History Confirmed 06/10/24] Fluoxetine HCl 20 mg PO DAILY 06/10/24 [History Confirmed 06/10/24] Thiamine HCl 100 mg [Vitamin B-1 100 mg] 100 mg PO DAILY 06/10/24 [History Confirmed 06/10/24] Trazodone HCl 50 mg [Desyrel 50 mg] 50 mg PO DAILY 06/10/24 [History Confirmed 06/10/24] Allergies/Adverse Reactions: Allergies Allergy/AdvReac Type Severity Reaction Status Date / Time aspirin Allergy Verified 06/10/24 13:21 cephalexin [From Keflex] Allergy Verified 06/10/24 13:21 Penicillins Allergy Verified 06/10/24 13:21 - Past Medical History Past Medical History: Yes Neurological History: No Pertinent History, Migraines ENT History: No Pertinent History Cardiac History: Coronary Artery Disease, Peripheral Vascular Disease Respiratory History: Other Endocrine Medical History: No Pertinent History Musculoskelatal History: Arthritis, Degenerative Disk Disease, Fibromyalgia, Fractures GI Medical History: GERD History: No Pertinent History Pyscho-Social History: Anxiety, Bipolar, Depression, Other Male Reproductive Disorders: Prostate Problems Comment: 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", BPH, Alcohol abuse, PE, PVD,dislocated shoulder left 05/2024 - Past Surgical History Past Surgical History: Yes (RUSSEL) Neuro Surgical History: No Pertinent History Cardiac History: No Pertinent History Respiratory Surgery: No Pertinent History GI Surgical History: Appendectomy Genitourinary Surgical Hx: No Pertinent History Musculskeletal Surgical Hx: Orthopedic Surgery Male Surgical History: Prostate Surgery Other Surgical History: Tumors removed from back, manav filter placed Significant Family History: no pertinent family hx - Social History Smoking Status: Never smoker Exposure to second hand smoke: No Alcohol: None Drug Use: none - Social Determinants of Health Will the patient participate in the screening: Yes Do you worry about a steady place to live?: No Do you have any problems with any of the following?: No known problems In the past 12 months,have you had to go without utilities?: No Have you or anyone in your house had to go without enough: No Transportation Issues: No Has anyone in your support network made you feel unsafe?: No Does the patient want assistance with any of the above?: No - Physical Exam Vital Signs: Vital Signs - 24 hr Temp Pulse Resp BP BP Pulse Ox 06/10/24 13:03 97.5 F 61 20 157/95 98 06/10/24 12:21 100 06/10/24 12:09 62 H 188/92 100 06/10/24 12:02 62 H 91 L 06/10/24 11:46 63 H 151/99 100 06/10/24 11:40 60 18 100 06/10/24 11:30 100 06/10/24 11:20 100 06/10/24 11:13 100 06/10/24 11:06 62 16 100 06/10/24 10:31 61 18 171/103 100 06/10/24 10:22 97 06/10/24 10:00 157/97 06/10/24 09:36 97.7 F 62 18 169/117 100 General Appearance: no apparent distress, alert, anxiety Neurologic Exam: alert, oriented x 3, cooperative, normal mood/affect, nml cerebellar function, nml station & gait, sensation nml, No motor deficits Eye Exam: PERRL/EOMI, eyes nml inspection Ears, Nose, Throat Exam: normal ENT inspection, TMs normal, pharynx normal, moist mucous membranes Neck Exam: normal inspection, non-tender, supple, full range of motion Respiratory Exam: normal breath sounds, lungs clear, No respiratory distress Cardiovascular Exam: regular rate/rhythm, normal heart sounds, normal peripheral pulses Gastrointestinal/Abdomen Exam: soft, normal bowel sounds, No tenderness, No mass Back Exam: normal inspection, normal range of motion, No CVA tenderness, No vertebral tenderness Extremity Exam: normal inspection, normal range of motion, pelvis stable Skin Exam: normal color, warm, dry, No rash Lymphatic Exam: No adenopathy Results - Labs Lab/Micro Results: Lab Results-Last 24 Hours 06/10/24 06/10/24 06/10/24 Range/Units 10:22 10:31 10:31 WBC 7.3 (4.23-9.07) x10^3/uL RBC 4.99 (4.63-6.08) x10^6/uL Hgb 15.8 (13.7-17.5) g/dL Hct 49.6 (40.1-51.0) % MCV 99.4 H (79.0-92.2) fL MCH 31.7 (25.7-32.2) pg MCHC 31.9 L (32.3-36.5) g/dL RDW 13.9 (11.6-14.4) % Plt Count 222 (163-337) x10^3/uL MPV 11.1 (9.4-12.4) fL Gran % 73.6 H (34.0-67.9) % Immature Gran % (Auto) 0.4 (0.001-0.429) % Nucleat RBC Rel Count 0.0 (0.00-0.2) % Eos # (Auto) 0.33 (0.04-0.54) x10^3/uL Immature Gran # (Auto) 0.03 (0.001-0.031) x10^3u/L Absolute Lymphs (auto) 0.90 L (1.32-3.57) x10^3/uL Absolute Monos (auto) 0.61 (0.30-0.82) x10^3/uL Absolute Nucleated RBC 0.00 (0.00-0.012) x10^3u/L Lymphocytes % 12.4 L (21.8-53.1) % Monocytes % 8.4 (5.3-12.2) % Eosinophils % 4.5 (0.8-7.0) % Basophils % 0.7 (0.2-1.2) % Absolute Granulocytes 5.35 (1.78-5.38) x10^3/uL Basophils # 0.05 (0.01-0.08) x10^3/uL ESR 6 (0-15) mm/hr Sodium (135-145) mmol/L Potassium (3.5-5.1) mmol/L Chloride (98-107) mmol/L Carbon Dioxide (22-30) mmol/L Anion Gap (5-15) MEQ/L BUN (9-20) mg/dL Creatinine (0.66-1.25) mg/dL Estimated GFR ML/MIN Glucose (74-106) mg/dL Lactic Acid 2.7 H (0.4-2.0) Calcium (8.4-10.2) mg/dL Total Bilirubin (0.2-1.3) mg/dL AST (17-59) U/L ALT (0-50) U/L Alkaline Phosphatase (38-126) U/L Creatine Kinase (55-170) U/L Troponin I (0.000-0.033) ng/mL Serum Total Protein (6.3-8.2) g/dL Albumin (3.5-5.0) g/dL Free T4 (0.78-2.19) ng/dL TSH 3rd Generation (0.470-4.680) mIU/L Urine Color Yellow (Yellow) Urine Appearance Turbid A (Clear) Urine pH 7.0 (4.6-8.0) Ur Specific [place] 1.020 (1.005-1.030) Urine Protein Negative (Negative) Urine Glucose (UA) Negative (Negative) mg/dL Urine Ketones Negative (Negative) Urine Blood Small A (Negative) Urine Nitrite Positive A (Negative) Urine Bilirubin Negative (Negative) Urine Urobilinogen 1.0 A (0.2) mg/dL Ur Leukocyte Esterase Large A (Negative) U Hyaline Cast (Auto) 6-10 A (0-2) /LPF Urine Microscopic RBC 11-20 A (0-5) /HPF Urine Microscopic WBC >100 A (0-5) /HPF Ur Epithelial Cells Rare (None Seen) /HPF Calcium Oxalate Crystal 3-5 A (None Seen) /HPF Urine Bacteria Many A (None Seen) /HPF Urine Culture Reflexed ORDERED SEPARATELY (NO) Influenza Type A Ag (NEGATIVE) Influenza Type B Ag (NEGATIVE) RSV (PCR) (NEGATIVE) SARS-CoV-2 (PCR) (NEGATIVE) 06/10/24 06/10/24 06/10/24 Range/Units 10:31 10:31 10:31 WBC (4.23-9.07) x10^3/uL RBC (4.63-6.08) x10^6/uL Hgb (13.7-17.5) g/dL Hct (40.1-51.0) % MCV (79.0-92.2) fL MCH (25.7-32.2) pg MCHC (32.3-36.5) g/dL RDW (11.6-14.4) % Plt Count (163-337) x10^3/uL MPV (9.4-12.4) fL Gran % (34.0-67.9) % Immature Gran % (Auto) (0.001-0.429) % Nucleat RBC Rel Count (0.00-0.2) % Eos # (Auto) (0.04-0.54) x10^3/uL Immature Gran # (Auto) (0.001-0.031) x10^3u/L Absolute Lymphs (auto) (1.32-3.57) x10^3/uL Absolute Monos (auto) (0.30-0.82) x10^3/uL Absolute Nucleated RBC (0.00-0.012) x10^3u/L Lymphocytes % (21.8-53.1) % Monocytes % (5.3-12.2) % Eosinophils % (0.8-7.0) % Basophils % (0.2-1.2) % Absolute Granulocytes (1.78-5.38) x10^3/uL Basophils # (0.01-0.08) x10^3/uL ESR (0-15) mm/hr Sodium 136 (135-145) mmol/L Potassium 4.6 (3.5-5.1) mmol/L Chloride 96 L (98-107) mmol/L Carbon Dioxide 26 (22-30) mmol/L Anion Gap 18.4 H (5-15) MEQ/L BUN 20 (9-20) mg/dL Creatinine 0.75 (0.66-1.25) mg/dL Estimated GFR 92.9 ML/MIN Glucose 100 (74-106) mg/dL Lactic Acid (0.4-2.0) Calcium 9.6 (8.4-10.2) mg/dL Total Bilirubin 1.00 (0.2-1.3) mg/dL AST 38 (17-59) U/L ALT 52 H (0-50) U/L Alkaline Phosphatase 56 (38-126) U/L Creatine Kinase 36 L (55-170) U/L Troponin I < 0.012 (0.000-0.033) ng/mL Serum Total Protein 7.3 (6.3-8.2) g/dL Albumin 4.9 (3.5-5.0) g/dL Free T4 1.21 (0.78-2.19) ng/dL TSH 3rd Generation 1.342 (0.470-4.680) mIU/L Urine Color (Yellow) Urine Appearance (Clear) Urine pH (4.6-8.0) Ur Specific [place] (1.005-1.030) Urine Protein (Negative) Urine Glucose (UA) (Negative) mg/dL Urine Ketones (Negative) Urine Blood (Negative) Urine Nitrite (Negative) Urine Bilirubin (Negative) Urine Urobilinogen (0.2) mg/dL Ur Leukocyte Esterase (Negative) U Hyaline Cast (Auto) (0-2) /LPF Urine Microscopic RBC (0-5) /HPF Urine Microscopic WBC (0-5) /HPF Ur Epithelial Cells (None Seen) /HPF Calcium Oxalate Crystal (None Seen) /HPF Urine Bacteria (None Seen) /HPF Urine Culture Reflexed (NO) Influenza Type A Ag (NEGATIVE) Influenza Type B Ag (NEGATIVE) RSV (PCR) (NEGATIVE) SARS-CoV-2 (PCR) (NEGATIVE) 06/10/24 Range/Units 11:10 WBC (4.23-9.07) x10^3/uL RBC (4.63-6.08) x10^6/uL Hgb (13.7-17.5) g/dL Hct (40.1-51.0) % MCV (79.0-92.2) fL MCH (25.7-32.2) pg MCHC (32.3-36.5) g/dL RDW (11.6-14.4) % Plt Count (163-337) x10^3/uL MPV (9.4-12.4) fL Gran % (34.0-67.9) % Immature Gran % (Auto) (0.001-0.429) % Nucleat RBC Rel Count (0.00-0.2) % Eos # (Auto) (0.04-0.54) x10^3/uL Immature Gran # (Auto) (0.001-0.031) x10^3u/L Absolute Lymphs (auto) (1.32-3.57) x10^3/uL Absolute Monos (auto) (0.30-0.82) x10^3/uL Absolute Nucleated RBC (0.00-0.012) x10^3u/L Lymphocytes % (21.8-53.1) % Monocytes % (5.3-12.2) % Eosinophils % (0.8-7.0) % Basophils % (0.2-1.2) % Absolute Granulocytes (1.78-5.38) x10^3/uL Basophils # (0.01-0.08) x10^3/uL ESR (0-15) mm/hr Sodium (135-145) mmol/L Potassium (3.5-5.1) mmol/L Chloride (98-107) mmol/L Carbon Dioxide (22-30) mmol/L Anion Gap (5-15) MEQ/L BUN (9-20) mg/dL Creatinine (0.66-1.25) mg/dL Estimated GFR ML/MIN Glucose (74-106) mg/dL Lactic Acid (0.4-2.0) Calcium (8.4-10.2) mg/dL Total Bilirubin (0.2-1.3) mg/dL AST (17-59) U/L ALT (0-50) U/L Alkaline Phosphatase (38-126) U/L Creatine Kinase (55-170) U/L Troponin I (0.000-0.033) ng/mL Serum Total Protein (6.3-8.2) g/dL Albumin (3.5-5.0) g/dL Free T4 (0.78-2.19) ng/dL TSH 3rd Generation (0.470-4.680) mIU/L Urine Color (Yellow) Urine Appearance (Clear) Urine pH (4.6-8.0) Ur Specific [place] (1.005-1.030) Urine Protein (Negative) Urine Glucose (UA) (Negative) mg/dL Urine Ketones (Negative) Urine Blood (Negative) Urine Nitrite (Negative) Urine Bilirubin (Negative) Urine Urobilinogen (0.2) mg/dL Ur Leukocyte Esterase (Negative) U Hyaline Cast (Auto) (0-2) /LPF Urine Microscopic RBC (0-5) /HPF Urine Microscopic WBC (0-5) /HPF Ur Epithelial Cells (None Seen) /HPF Calcium Oxalate Crystal (None Seen) /HPF Urine Bacteria (None Seen) /HPF Urine Culture Reflexed (NO) Influenza Type A Ag NEGATIVE (NEGATIVE) Influenza Type B Ag NEGATIVE (NEGATIVE) RSV (PCR) NEGATIVE (NEGATIVE) SARS-CoV-2 (PCR) NEGATIVE (NEGATIVE) - Radiology Impressions Radiology Exams & Impressions: Radiology Procedures Category Date Time Status CERVICAL SPINE WO CONTRAST [CT] Stat Exams 06/10/24 11:00 Completed Assessment/Plan (1) Complicated UTI (urinary tract infection) Current Visit: Yes Status: Acute Assessment & Plan: - Chronic mercado- changed IP per protocol - UA with C& S - Will start cipro - probiotics - BC x2 - tele - CBC, CMP reviewed Code(s): N39.0 - URINARY TRACT INFECTION, SITE NOT SPECIFIED (2) Lactic acidosis Current Visit: Yes Status: Acute Assessment & Plan: - LA 2.7- encouraged oral fluid intake since unable to get an IV Code(s): E87.20 - ACIDOSIS, UNSPECIFIED (3) History of recent fall Current Visit: Yes Status: Acute Assessment & Plan: - Reports being seen for this at [facility] and [facility] in which he received XR's at both facilities. Will obtain records from both fa cilities to review XR's - Pt reports LEft shoulder pain- + bruising - Lumbar back and cervical pain - Cervical CT reviewed. - He is supposed to be wearing a sling for Left shoulder. - Tylenol for pain - Will discuss other pain options with pharmacist since he take Naltexone this adds to the complexity of controlling his pain. - Lidocaine patch, volatren gel Code(s): Z91.81 - HISTORY OF FALLING (4) DDD (degenerative disc disease), cervical Current Visit: Yes Status: Chronic Assessment & Plan: - PT eval for home needs - Tylenol for pain -CT cervical spine: IMPRESSION: 1. No acute fractures or dislocation. 2. Cervical spondylotic changes show mild progression with newly developed gas lucecies of vaccum phenomena, 3. Stable multilevel disc/ osteophyte complex disease as described. Code(s): M50.30 - OTHER CERVICAL DISC DEGENERATION, UNSP CERVICAL REGION (5) Alcohol abuse Current Visit: No Status: Chronic Assessment & Plan: - Cont. Neatrexone Code(s): F10.10 - ALCOHOL ABUSE, UNCOMPLICATED (6) Anxiety with depression Current Visit: Yes Status: Chronic Assessment & Plan: - Continue home meds - Xanax x1 Code(s): F41.8 - OTHER SPECIFIED ANXIETY DISORDERS (7) Bipolar 1 disorder Current Visit: Yes Status: Chronic Assessment & Plan: - Cont home meds Code(s): F31.9 - BIPOLAR DISORDER, UNSPECIFIED (8) History of DVT (deep vein thrombosis) Current Visit: Yes Status: Chronic Assessment & Plan: - Has hx of manav filter - Continue Eliquis Code(s): Z86.718 - PERSONAL HISTORY OF OTHER VENOUS THROMBOSIS AND EMBOLISM (9) BPH (benign prostatic hyperplasia) Current Visit: Yes Status: Chronic Assessment & Plan: - Cont flomax VTE: Eliquis Next of KIN: D/C plan: 1-2 days Code status: Code Code(s): N40.0 - BENIGN PROSTATIC HYPERPLASIA WITHOUT LOWER URINRY TRACT SYMP Telemedicine Encounter - Telemedicine Encounter Telemedicine Encounter: "The entirety of this encounter was performed via Telemedicine" This visit was performed using real-time audio and video connection between my location and thepatients locationwith the assistance of a surrogateat the patients location. Written or verbal consent was obtained from the patient/guardian to perform this visit [email or web address]. Any patient questions regarding the telemedicine interaction were answered.
[2024-06-10] MEDS ORDERED: MEDICATION INTERVENTION MC SCH ×2 (15:15)
[2024-06-10] MEDS ORDERED: DICLOFENAC SODIUM TP PRN (15:17)
[2024-06-10] MEDS: Singulair 10 MG PO SCH (15:29)
[2024-06-10] MEDS: Bystolic 5 MG PO SCH (15:29)
[2024-06-10] MEDS: VITAMIN B-1 100 MG PO SCH (15:29)
[2024-06-10] MEDS: Prozac 20 MG PO SCH (15:29)
[2024-06-10] MEDS: Flomax 0.4 MG PO SCH (15:29)
[2024-06-10] MEDS: Acidophilus TABLET PO SCH (15:30)
[2024-06-10] MEDS: Lidoderm Patch 5% TOP SCH (15:30)
[2024-06-10] MEDS: DESYREL 50 MG PO SCH (15:30)
[2024-06-10] MEDS: PATIENT OWN MEDICATION PO SCH ×2 (15:31→22:18)
[2024-06-10] MEDS: TYLENOL 325 MG PO PRN (20:32)
[2024-06-10] MEDS ORDERED: DULOXETINE HCL 40 MG PO SCH (22:00)
[2024-06-10] MEDS: Docusate Sodium 100 MG PO SCH (22:17)
[2024-06-10] MEDS: ELIQUIS 2.5 MG TABLET PO SCH (22:17)
[2024-06-11] MEDS ORDERED: ZOFRAN ODT 4 MG ONE (04:23)
[2024-06-11] MEDS: ZOFRAN ODT 4 MG PO PRN (04:25)
[2024-06-11 04:41] LABS: Hematocrit 43.6 % (40.1-51.0); Mean Cell Volume 99.5 fL (79.0-92.2); Mean Corpuscular Hgb Concent. 32.1 g/dL (32.3-36.5); Platelet Count 188 x10^3/uL (163-337); Red Blood Count 4.38 x10^6/uL (4.63-6.08); Red Cell Distribution Width 13.8 % (11.6-14.4); White Blood Count 7.5 x10^3/uL (4.23-9.07)
[2024-06-11 04:55] LABS: ANION GAP 13.6 MEQ/L (5-15); Calcium 8.6 mg/dL (8.4-10.2); Creatinine 1 0.65 mg/dL (0.66-1.25); EST GLOMERULAR FILTRATION RATE 97.1 ML/MIN; Potassium 4.4 mmol/L (3.5-5.1); Total Protein 6.2 g/dL (6.3-8.2)
--- NOTE | 2024-06-11 05:25 | PCM.NOTE ---
Date and Time: 06/11/24 05 Subjective Assessment: is a 78 year old male with PMHX of migraines, PVD, CAD, DJD, OA, fibromyalgia, GERD, bipolar, anxiety, depression, BPH, and alcohol abuse who presented to ED 06/10/24 with complaints of multiple joint and neck pain following a fall at home 13 days ago. Per patient report he was evaluated in ED at that time and diagnosed with a dislocated left shoulder.Upon arrival to ED, patient febrile and hypertensive, CT cervical spine with no acute fractures or dislocation. Cervical spondylotic changes show mild progression with newly developed gas lucecies of vacuum phenomena. Stable multilevel disc/ osteophyte complex disease. Lab findings remarkable for Gap/Lactic acidosis and UA suspicious for infection. Patient admitted with UTI, generalized weakness, DDD, and difficulty ambulating. Patient given Levaquin in ED. 06/11/24: Met with patient bedside. Endorses continued pain to left shoulder and neck - rating 6/10 on numerical pain scale. Patient has chronic mercado due to urinary retention placed by urology. UCult is growing gram - ID. Patient requesting SNF for rehab on discharge. Will have CM look into this. PT eval today. Denies fever,cough, sob, cp, abdominal pain, HENDRIX, dizziness, N/V/D. - Review of Systems Constitutional: No Symptoms Eyes: No Symptoms Ears, Nose, & Throat: No Symptoms Respiratory: No Symptoms Cardiac: No Symptoms Abdominal/Gastrointestinal: Nausea Genitourinary Symptoms: No Symptoms, Other (FC- chronic) Musculoskeletal: Joint Pain (left shoulder/neck) Neurological: No Symptoms Psychological: No Symptoms Endocrine: No Symptoms Hematologic/Lymphatic: No Symptoms Immunological/Allergic: No Symptoms Objective Exam General Appearance: no apparent distress Neurologic Exam: alert, oriented x 3, cooperative Skin Exam: normal color Eye Exam: PERRL Ears, Nose, Throat Exam: normal ENT inspection Neck Exam: limited range of motion (due to pain) Respiratory Exam: normal breath sounds, lungs clear Cardiovascular Exam: regular rate/rhythm, normal heart sounds Gastrointestinal/Abdomen Exam: soft, normal bowel sounds Extremity Exam: normal inspection Back Exam: normal inspection Male Genitalia Exam: deferred Rectal Exam: deferred Objective Data Vital Signs: Vital Signs - 24 hr Temp Pulse Resp BP BP Pulse Ox 06/11/24 04:00 96.9 F 57 L 20 149/74 95 06/11/24 00:00 97.7 F 67 18 169/79 95 06/10/24 20:00 97.1 F 62 18 135/78 96 06/10/24 13:03 97.5 F 61 20 157/95 98 06/10/24 12:21 100 06/10/24 12:09 62 H 188/92 100 06/10/24 12:02 62 H 91 L 06/10/24 11:46 63 H 151/99 100 06/10/24 11:40 60 18 100 06/10/24 11:30 100 06/10/24 11:20 100 06/10/24 11:13 100 06/10/24 11:06 62 16 100 06/10/24 10:31 61 18 171/103 100 06/10/24 10:22 97 06/10/24 10:00 157/97 06/10/24 09:36 97.7 F 62 18 169/117 100 Pain Assessment - Last Documented Pain Intensity [Generalized] 5 Pain Intensity 4 Pain Scale Used 0-10 Pain Scale Intake and Output: Intake & Output 06/08/24 06/09/24 06/10/24 06/11/24 11:59 11:59 11:59 11:59 Intake Total 3540 Output Total 4000 Balance -460 Weight 91.4 kg 92.9 kg Lab Results: Lab Results-Last 24 Hours 06/10/24 06/10/24 06/10/24 Range/Units 10:22 10:31 10:31 WBC 7.3 (4.23-9.07) x10^3/uL RBC 4.99 (4.63-6.08) x10^6/uL Hgb 15.8 (13.7-17.5) g/dL Hct 49.6 (40.1-51.0) % MCV 99.4 H (79.0-92.2) fL MCH 31.7 (25.7-32.2) pg MCHC 31.9 L (32.3-36.5) g/dL RDW 13.9 (11.6-14.4) % Plt Count 222 (163-337) x10^3/uL MPV 11.1 (9.4-12.4) fL Gran % 73.6 H (34.0-67.9) % Immature Gran % (Auto) 0.4 (0.001-0.429) % Nucleat RBC Rel Count 0.0 (0.00-0.2) % Eos # (Auto) 0.33 (0.04-0.54) x10^3/uL Immature Gran # (Auto) 0.03 (0.001-0.031) x10^3u/L Absolute Lymphs (auto) 0.90 L (1.32-3.57) x10^3/uL Absolute Monos (auto) 0.61 (0.30-0.82) x10^3/uL Absolute Nucleated RBC 0.00 (0.00-0.012) x10^3u/L Lymphocytes % 12.4 L (21.8-53.1) % Monocytes % 8.4 (5.3-12.2) % Eosinophils % 4.5 (0.8-7.0) % Basophils % 0.7 (0.2-1.2) % Absolute Granulocytes 5.35 (1.78-5.38) x10^3/uL Basophils # 0.05 (0.01-0.08) x10^3/uL ESR 6 (0-15) mm/hr Sodium (135-145) mmol/L Potassium (3.5-5.1) mmol/L Chloride (98-107) mmol/L Carbon Dioxide (22-30) mmol/L Anion Gap (5-15) MEQ/L BUN (9-20) mg/dL Creatinine (0.66-1.25) mg/dL Estimated GFR ML/MIN Glucose (74-106) mg/dL Lactic Acid 2.7 H (0.4-2.0) Calcium (8.4-10.2) mg/dL Total Bilirubin (0.2-1.3) mg/dL AST (17-59) U/L ALT (0-50) U/L Alkaline Phosphatase (38-126) U/L Creatine Kinase (55-170) U/L Troponin I (0.000-0.033) ng/mL Serum Total Protein (6.3-8.2) g/dL Albumin (3.5-5.0) g/dL Free T4 (0.78-2.19) ng/dL TSH 3rd Generation (0.470-4.680) mIU/L Urine Color Yellow (Yellow) Urine Appearance Turbid A (Clear) Urine pH 7.0 (4.6-8.0) Ur Specific Shelby 1.020 (1.005-1.030) Urine Protein Negative (Negative) Urine Glucose (UA) Negative (Negative) mg/dL Urine Ketones Negative (Negative) Urine Blood Small A (Negative) Urine Nitrite Positive A (Negative) Urine Bilirubin Negative (Negative) Urine Urobilinogen 1.0 A (0.2) mg/dL Ur Leukocyte Esterase Large A (Negative) U Hyaline Cast (Auto) 6-10 A (0-2) /LPF Urine Microscopic RBC 11-20 A (0-5) /HPF Urine Microscopic WBC >100 A (0-5) /HPF Ur Epithelial Cells Rare (None Seen) /HPF Calcium Oxalate Crystal 3-5 A (None Seen) /HPF Urine Bacteria Many A (None Seen) /HPF Urine Culture Reflexed ORDERED SEPARATELY (NO) Influenza Type A Ag (NEGATIVE) Influenza Type B Ag (NEGATIVE) RSV (PCR) (NEGATIVE) SARS-CoV-2 (PCR) (NEGATIVE) 06/10/24 06/10/24 06/10/24 Range/Units 10:31 10:31 10:31 WBC (4.23-9.07) x10^3/uL RBC (4.63-6.08) x10^6/uL Hgb (13.7-17.5) g/dL Hct (40.1-51.0) % MCV (79.0-92.2) fL MCH (25.7-32.2) pg MCHC (32.3-36.5) g/dL RDW (11.6-14.4) % Plt Count (163-337) x10^3/uL MPV (9.4-12.4) fL Gran % (34.0-67.9) % Immature Gran % (Auto) (0.001-0.429) % Nucleat RBC Rel Count (0.00-0.2) % Eos # (Auto) (0.04-0.54) x10^3/uL Immature Gran # (Auto) (0.001-0.031) x10^3u/L Absolute Lymphs (auto) (1.32-3.57) x10^3/uL Absolute Monos (auto) (0.30-0.82) x10^3/uL Absolute Nucleated RBC (0.00-0.012) x10^3u/L Lymphocytes % (21.8-53.1) % Monocytes % (5.3-12.2) % Eosinophils % (0.8-7.0) % Basophils % (0.2-1.2) % Absolute Granulocytes (1.78-5.38) x10^3/uL Basophils # (0.01-0.08) x10^3/uL ESR (0-15) mm/hr Sodium 136 (135-145) mmol/L Potassium 4.6 (3.5-5.1) mmol/L Chloride 96 L (98-107) mmol/L Carbon Dioxide 26 (22-30) mmol/L Anion Gap 18.4 H (5-15) MEQ/L BUN 20 (9-20) mg/dL Creatinine 0.75 (0.66-1.25) mg/dL Estimated GFR 92.9 ML/MIN Glucose 100 (74-106) mg/dL Lactic Acid (0.4-2.0) Calcium 9.6 (8.4-10.2) mg/dL Total Bilirubin 1.00 (0.2-1.3) mg/dL AST 38 (17-59) U/L ALT 52 H (0-50) U/L Alkaline Phosphatase 56 (38-126) U/L Creatine Kinase 36 L (55-170) U/L Troponin I < 0.012 (0.000-0.033) ng/mL Serum Total Protein 7.3 (6.3-8.2) g/dL Albumin 4.9 (3.5-5.0) g/dL Free T4 1.21 (0.78-2.19) ng/dL TSH 3rd Generation 1.342 (0.470-4.680) mIU/L Urine Color (Yellow) Urine Appearance (Clear) Urine pH (4.6-8.0) Ur Specific Shelby (1.005-1.030) Urine Protein (Negative) Urine Glucose (UA) (Negative) mg/dL Urine Ketones (Negative) Urine Blood (Negative) Urine Nitrite (Negative) Urine Bilirubin (Negative) Urine Urobilinogen (0.2) mg/dL Ur Leukocyte Esterase (Negative) U Hyaline Cast (Auto) (0-2) /LPF Urine Microscopic RBC (0-5) /HPF Urine Microscopic WBC (0-5) /HPF Ur Epithelial Cells (None Seen) /HPF Calcium Oxalate Crystal (None Seen) /HPF Urine Bacteria (None Seen) /HPF Urine Culture Reflexed (NO) Influenza Type A Ag (NEGATIVE) Influenza Type B Ag (NEGATIVE) RSV (PCR) (NEGATIVE) SARS-CoV-2 (PCR) (NEGATIVE) 06/10/24 06/10/24 06/10/24 Range/Units 11:10 12:34 18:25 WBC (4.23-9.07) x10^3/uL RBC (4.63-6.08) x10^6/uL Hgb (13.7-17.5) g/dL Hct (40.1-51.0) % MCV (79.0-92.2) fL MCH (25.7-32.2) pg MCHC (32.3-36.5) g/dL RDW (11.6-14.4) % Plt Count (163-337) x10^3/uL MPV (9.4-12.4) fL Gran % (34.0-67.9) % Immature Gran % (Auto) (0.001-0.429) % Nucleat RBC Rel Count (0.00-0.2) % Eos # (Auto) (0.04-0.54) x10^3/uL Immature Gran # (Auto) (0.001-0.031) x10^3u/L Absolute Lymphs (auto) (1.32-3.57) x10^3/uL Absolute Monos (auto) (0.30-0.82) x10^3/uL Absolute Nucleated RBC (0.00-0.012) x10^3u/L Lymphocytes % (21.8-53.1) % Monocytes % (5.3-12.2) % Eosinophils % (0.8-7.0) % Basophils % (0.2-1.2) % Absolute Granulocytes (1.78-5.38) x10^3/uL Basophils # (0.01-0.08) x10^3/uL ESR (0-15) mm/hr Sodium (135-145) mmol/L Potassium (3.5-5.1) mmol/L Chloride (98-107) mmol/L Carbon Dioxide (22-30) mmol/L Anion Gap (5-15) MEQ/L BUN (9-20) mg/dL Creatinine (0.66-1.25) mg/dL Estimated GFR ML/MIN Glucose (74-106) mg/dL Lactic Acid 2.6 H (0.4-2.0) Calcium (8.4-10.2) mg/dL Total Bilirubin (0.2-1.3) mg/dL AST (17-59) U/L ALT (0-50) U/L Alkaline Phosphatase (38-126) U/L Creatine Kinase (55-170) U/L Troponin I < 0.012 (0.000-0.033) ng/mL Serum Total Protein (6.3-8.2) g/dL Albumin (3.5-5.0) g/dL Free T4 (0.78-2.19) ng/dL TSH 3rd Generation (0.470-4.680) mIU/L Urine Color (Yellow) Urine Appearance (Clear) Urine pH (4.6-8.0) Ur Specific Shelby (1.005-1.030) Urine Protein (Negative) Urine Glucose (UA) (Negative) mg/dL Urine Ketones (Negative) Urine Blood (Negative) Urine Nitrite (Negative) Urine Bilirubin (Negative) Urine Urobilinogen (0.2) mg/dL Ur Leukocyte Esterase (Negative) U Hyaline Cast (Auto) (0-2) /LPF Urine Microscopic RBC (0-5) /HPF Urine Microscopic WBC (0-5) /HPF Ur Epithelial Cells (None Seen) /HPF Calcium Oxalate Crystal (None Seen) /HPF Urine Bacteria (None Seen) /HPF Urine Culture Reflexed (NO) Influenza Type A Ag NEGATIVE (NEGATIVE) Influenza Type B Ag NEGATIVE (NEGATIVE) RSV (PCR) NEGATIVE (NEGATIVE) SARS-CoV-2 (PCR) NEGATIVE (NEGATIVE) 06/11/24 06/11/24 Range/Units 04:17 04:17 WBC 7.5 (4.23-9.07) x10^3/uL RBC 4.38 L (4.63-6.08) x10^6/uL Hgb 14.0 (13.7-17.5) g/dL Hct 43.6 (40.1-51.0) % MCV 99.5 H (79.0-92.2) fL MCH 32.0 (25.7-32.2) pg MCHC 32.1 L (32.3-36.5) g/dL RDW 13.8 (11.6-14.4) % Plt Count 188 (163-337) x10^3/uL MPV 11.0 (9.4-12.4) fL Gran % (34.0-67.9) % Immature Gran % (Auto) (0.001-0.429) % Nucleat RBC Rel Count (0.00-0.2) % Eos # (Auto) (0.04-0.54) x10^3/uL Immature Gran # (Auto) (0.001-0.031) x10^3u/L Absolute Lymphs (auto) (1.32-3.57) x10^3/uL Absolute Monos (auto) (0.30-0.82) x10^3/uL Absolute Nucleated RBC (0.00-0.012) x10^3u/L Lymphocytes % (21.8-53.1) % Monocytes % (5.3-12.2) % Eosinophils % (0.8-7.0) % Basophils % (0.2-1.2) % Absolute Granulocytes (1.78-5.38) x10^3/uL Basophils # (0.01-0.08) x10^3/uL ESR (0-15) mm/hr Sodium 133 L (135-145) mmol/L Potassium 4.4 (3.5-5.1) mmol/L Chloride 98 (98-107) mmol/L Carbon Dioxide 26 (22-30) mmol/L Anion Gap 13.6 (5-15) MEQ/L BUN 14 (9-20) mg/dL Creatinine 0.65 L (0.66-1.25) mg/dL Estimated GFR 97.1 ML/MIN Glucose 134 H (74-106) mg/dL Lactic Acid (0.4-2.0) Calcium 8.6 (8.4-10.2) mg/dL Total Bilirubin 1.00 (0.2-1.3) mg/dL AST 35 (17-59) U/L ALT 46 (0-50) U/L Alkaline Phosphatase 46 (38-126) U/L Creatine Kinase (55-170) U/L Troponin I (0.000-0.033) ng/mL Serum Total Protein 6.2 L (6.3-8.2) g/dL Albumin 4.0 (3.5-5.0) g/dL Free T4 (0.78-2.19) ng/dL TSH 3rd Generation (0.470-4.680) mIU/L Urine Color (Yellow) Urine Appearance (Clear) Urine pH (4.6-8.0) Ur Specific [place] (1.005-1.030) Urine Protein (Negative) Urine Glucose (UA) (Negative) mg/dL Urine Ketones (Negative) Urine Blood (Negative) Urine Nitrite (Negative) Urine Bilirubin (Negative) Urine Urobilinogen (0.2) mg/dL Ur Leukocyte Esterase (Negative) U Hyaline Cast (Auto) (0-2) /LPF Urine Microscopic RBC (0-5) /HPF Urine Microscopic WBC (0-5) /HPF Ur Epithelial Cells (None Seen) /HPF Calcium Oxalate Crystal (None Seen) /HPF Urine Bacteria (None Seen) /HPF Urine Culture Reflexed (NO) Influenza Type A Ag (NEGATIVE) Influenza Type B Ag (NEGATIVE) RSV (PCR) (NEGATIVE) SARS-CoV-2 (PCR) (NEGATIVE) Radiology Exams: Radiology Procedures Category Date Time Status CERVICAL SPINE WO CONTRAST [CT] Stat Exams 06/10/24 11:00 Completed Assessment/Plan (1) Complicated UTI (urinary tract infection) Current Visit: Yes Status: Acute Assessment & Plan: - Chronic mercado- changed IP per protocol - UA with C& S reviewed - suspicious for infection - started on Levaquin in ED - continued cipro - follow cultures (gram - ID) - probiotics - BC x2 - tele - CBC, CMP reviewed Code(s): N39.0 - URINARY TRACT INFECTION, SITE NOT SPECIFIED (2) History of recent fall Current Visit: Yes Status: Acute Assessment & Plan: - Reports being seen for this at [facility] and [facility] [place] in which he received XR's at both facilities. Will obtain records from both facilities to review XR's - Pt reports Left shoulder pain- + bruising - Lumbar back and cervical pain - Cervical CT reviewed with no acute fractures or dislocation. Cervical spondylotic changes show mild progression with newly developed gas lucecies of vacuum phenomena. Stable multilevel disc/ osteophyte complex disease. - He is supposed to be wearing a sling for Left shoulder. - Tylenol for pain - Will discuss other pain options with pharmacist since he take Naltexone this adds to the complexity of controlling his pain. Code(s): Z91.81 - HISTORY OF FALLING (3) Lactic acidosis Current Visit: Yes Status: Acute Assessment & Plan: - LA 2.7 on admission now at 1.7 WNL- encouraged oral fluid intake since unable to get an IV Code(s): E87.20 - ACIDOSIS, UNSPECIFIED (4) Anxiety with depression Current Visit: Yes Status: Chronic Assessment & Plan: - Continue home meds Code(s): F41.8 - OTHER SPECIFIED ANXIETY DISORDERS (5) BPH (benign prostatic hyperplasia) Current Visit: Yes Status: Chronic Assessment & Plan: - Cont flomax Code(s): N40.0 - BENIGN PROSTATIC HYPERPLASIA WITHOUT LOWER URINRY TRACT SYMP (6) Bipolar 1 disorder Current Visit: Yes Status: Chronic Assessment & Plan: - Cont home meds Code(s): F31.9 - BIPOLAR DISORDER, UNSPECIFIED (7) DDD (degenerative disc disease), cervical Current Visit: Yes Status: Chronic Assessment & Plan: - PT eval for home needs - Tylenol for pain -CT cervical spine as stated above Code(s): M50.30 - OTHER CERVICAL DISC DEGENERATION, UNSP CERVICAL REGION (8) History of DVT (deep vein thrombosis) Current Visit: Yes Status: Chronic Assessment & Plan: - Has hx of manav filter - Continue Eliquis Code(s): Z86.718 - PERSONAL HISTORY OF OTHER VENOUS THROMBOSIS AND EMBOLISM (9) Alcohol abuse Current Visit: No Status: Chronic Assessment & Plan: - Cont. Neatrexone VTE: SCD's Next of KIN: D/C plan: 1-2 days Code status: Code Code(s): F10.10 - ALCOHOL ABUSE, UNCOMPLICATED
[2024-06-11] MEDS ORDERED: NON-FORMULARY ITEM (Naltrexone Hcl [Naltrexone Hcl] 50 MG Tablet) PO SCH (10:00)
[2024-06-11] MEDS: Protonix 40MG Tablet PO SCH (10:09)
[2024-06-11] MEDS: Cipro 500 MG PO SCH (10:10)
--- NOTE | 2024-06-11 12:40 | XRAY ---
Indication: Pain. Comparison: None 3 view left shoulder demonstrates osteopenia, mild AC degenerative changes, and tiny left lung base calcified granuloma. No other bony, articular, or soft tissue abnormalities.
[2024-06-11] MEDS: Mylicon 80MG PO PRN (14:25)
--- NOTE | 2024-06-12 05:41 | PCM.NOTE ---
Date and Time: 06/12/24 0539 Subjective Assessment: is a 78 year old male with PMHX of migraines, PVD, CAD, DJD, OA, fibromyalgia, GERD, bipolar, anxiety, depression, BPH, and alcohol abuse who presented to ED 06/10/24 with complaints of multiple joint and neck pain following a fall at home 13 days ago. Per patient report he was evaluated in ED at that time and diagnosed with a dislocated left shoulder.Upon arrival to ED, patient febrile and hypertensive, CT cervical spine with no acute fractures or dislocation. Cervical spondylotic changes show mild progression with newly developed gas lucecies of vacuum phenomena. Stable multilevel disc/ osteophyte complex disease. Lab findings remarkable for Gap/Lactic acidosis and UA suspicious for infection. Patient admitted with UTI, generalized weakness, DDD, and difficulty ambulating. Patient given Levaquin in ED. Left shoulder xray with mild AC degenerative changes and tiny left lung base calcified granuloma. No other bony, articular, or soft tissue abnormalities. 06/11/24: Met with patient bedside. Endorses continued pain to left shoulder and neck - rating 6/10 on numerical pain scale. Patient has chronic mercado due to urinary retention placed by urology. UCult is growing gram - ID. Patient requesting SNF for rehab on discharge. Will have CM look into this. PT eval today. Denies feve r,cough, sob, cp, abdominal pain, HENDRIX, dizziness, N/V/D. Objective Data Vital Signs: Vital Signs - 24 hr Temp Pulse Resp BP Pulse Ox 06/12/24 03:23 97.3 F 51 L 18 178/84 98 06/11/24 23:35 97.1 F 65 16 164/70 99 06/11/24 20:00 97.5 F 94 H 17 147/74 96 06/11/24 16:00 97.1 F 58 L 22 160/77 98 06/11/24 12:00 97.1 F 58 L 20 160/77 98 06/11/24 08:00 96.9 F 57 L 20 159/68 95 Pain Assessment - Last Documented Pain Intensity [Generalized] 5 Pain Intensity 5 Pain Scale Used 0-10 Pain Scale Intake and Output: Intake & Output 06/09/24 06/10/24 06/11/24 06/12/24 11:59 11:59 11:59 11:59 Intake Total 4260 360 Output Total 4855 4900 Balance -590 -1090 Weight 91.4 kg 92.9 kg Radiology Exams: Radiology Procedures Category Date Time Status CERVICAL SPINE WO CONTRAST [CT] Stat Exams 06/10/24 11:00 Completed SHOULDER Routine Exams 06/11/24 11:49 Completed Multi-Disciplinary Progress Notes: Multi-Disciplinary Progress Notes 06/11/24 15:05 Case Management Note by Pau Ocasio REFERRAL FAXED TO [facility]. THEY WILL NEED NOTIFIED AT TIME OF DC AT [phone]. THEY WILL NEED FAXED THE DC INSTRUCTIONS, DC MED LIST AND DC SUMMARY FAXED TO [phone] Initialized on 06/11/24 15:05 - END OF NOTE 06/11/24 15:02 Case Management Note by Pau Ocasio REFERRAL SENT TO [facility] Initialized on 06/11/24 15:02 - END OF NOTE 06/11/24 14:53 Case Management Note by Pau Ocasio S/W VALDEZ- SHE AGREES WITH PLAN TO DC HOME. SHE REPORTS SHE TALKS WITH PATIENT3-4X A DAY AND HELPS SHE CAN. SHE WOULD LIKE [facility] AND ANY ADDITIONAL SERVICES PATIENT IS ABLE TO GET SET UP FOR HIM. 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 SHE WILL BE ABLE TO PICK PATIENT UP TOMORROW BETWEEN 1300 AND 1400 Initialized on 06/11/24 14:53 - END OF NOTE Assessment/Plan (1) Complicated UTI (urinary tract infection) Current Visit: Yes Status: Acute Assessment & Plan: - Chronic mercado- changed IP per protocol - UA with C& S reviewed - suspicious for infection - started on Levaquin in ED - continued cipro - follow cultures (gram - ID) - probiotics - BC x2 - tele - CBC, CMP reviewed Code(s): N39.0 - URINARY TRACT INFECTION, SITE NOT SPECIFIED (2) History of recent fall Current Visit: Yes Status: Acute Assessment & Plan: - Reports being seen for this at [facility] and [facility] in which he received XR's at both facilities. Will obtain records from both facilities to review XR's - Pt reports Left shoulder pain- + bruising - Lumbar back and cervical pain - Cervical CT reviewed with no acute fractures or dislocation. Cervical spondylotic changes show mild progression with newly developed gas lucecies of vacuum phenomena. Stable multilevel disc/ osteophyte complex disease. - He is supposed to be wearing a sling for Left shoulder. - Tylenol for pain - Will discuss other pain options with pharmacist since he take Naltexone this adds to the complexity of controlling his pain. Code(s): Z91.81 - HISTORY OF FALLING (3) Lactic acidosis Current Visit: Yes Status: Acute Assessment & Plan: - LA 2.7 on admission now at 1.7 WNL- encouraged oral fluid intake since unable to get an IV Code(s): E87.20 - ACIDOSIS, UNSPECIFIED (4) Anxiety with depression Current Visit: Yes Status: Chronic Assessment & Plan: - Continue home meds Code(s): F41.8 - OTHER SPECIFIED ANXIETY DISORDERS (5) BPH (benign prostatic hyperplasia) Current Visit: Yes Status: Chronic Assessment & Plan: - Cont flomax Code(s): N40.0 - BENIGN PROSTATIC HYPERPLASIA WITHOUT LOWER URINRY TRACT SYMP (6) Bipolar 1 disorder Current Visit: Yes Status: Chronic Assessment & Plan: - Cont home meds Code(s): F31.9 - BIPOLAR DISORDER, UNSPECIFIED (7) DDD (degenerative disc disease), cervical Current Visit: Yes Status: Chronic Assessment & Plan: - PT eval for home needs - Tylenol for pain -CT cervical spine as stated above Code(s): M50.30 - OTHER CERVICAL DISC DEGENERATION, UNSP CERVICAL REGION (8) History of DVT (deep vein thrombosis) Current Visit: Yes Status: Chronic Assessment & Plan: - Has hx of manav filter - Continue Eliquis Code(s): Z86.718 - PERSONAL HISTORY OF OTHER VENOUS THROMBOSIS AND EMBOLISM (9) Alcohol abuse Current Visit: No Status: Chronic Assessment & Plan: - Cont. Neatrexone VTE: SCD's Next of KIN: D/C plan: 1-2 days Code status: Code Code(s): N39.0 - URINARY TRACT INFECTION, SITE NOT SPECIFIED (2) History of recent fall Current Visit: Yes Status: Acute Code(s): Z91.81 - HISTORY OF FALLING (3) Lactic acidosis Current Visit: Yes Status: Acute Code(s): E87.20 - ACIDOSIS, UNSPECIFIED (4) Anxiety with depression Current Visit: Yes Status: Chronic Code(s): F41.8 - OTHER SPECIFIED ANXIETY DISORDERS (5) BPH (benign prostatic hyperplasia) Current Visit: Yes Status: Chronic Code(s): N40.0 - BENIGN PROSTATIC HYPERPLASIA WITHOUT LOWER URINRY TRACT SYMP (6) Bipolar 1 disorder Current Visit: Yes Status: Chronic Code(s): F31.9 - BIPOLAR DISORDER, UNSPECIFIED (7) DDD (degenerative disc disease), cervical Current Visit: Yes Status: Chronic Code(s): M50.30 - OTHER CERVICAL DISC DEGENERATION, UNSP CERVICAL REGION (8) History of DVT (deep vein thrombosis) Current Visit: Yes Status: Chronic Code(s): Z86.718 - PERSONAL HISTORY OF OTHER VENOUS THROMBOSIS AND EMBOLISM (9) Alcohol abuse Current Visit: No Status: Chronic Code(s): F10.10 - ALCOHOL ABUSE, UNCOMPLICATED
[2024-06-12 07:00] VITALS: PULSE 54; RESP 16
[2024-06-12 07:20] LABS: Absolute Neutrophil Ct (ANC) 4.39 x10^3/uL (1.78-5.38); BASOPHIL % 0.5 % (0.2-1.2); Basophil (Absolute #) 0.03 x10^3/uL (0.01-0.08); Eosinophil % 5.2 % (0.8-7.0); Eosinophil (Absolute #) 0.32 x10^3/uL (0.04-0.54); Hematocrit 44.6 % (40.1-51.0); Hemoglobin 14.2 g/dL (13.7-17.5); IMMATURE GRAN # 0.02 x10^3u/L (0.001-0.031); IMMATURE GRAN % 0.3 % (0.001-0.429); Lymphocyte (Absolute #) 0.75 x10^3/uL (1.32-3.57); Lymphocytes % 12.3 % (21.8-53.1); Mean Cell Volume 100.5 fL (79.0-92.2); Mean Corpuscular Hgb Concent. 31.8 g/dL (32.3-36.5); Mean Platelet Volume 10.9 fL (9.4-12.4); Monocyte (Absolute #) 0.61 x10^3/uL (0.30-0.82); Neutrophil % 71.7 % (34.0-67.9); Platelet Count 186 x10^3/uL (163-337); Red Blood Count 4.44 x10^6/uL (4.63-6.08); Red Cell Distribution Width 13.8 % (11.6-14.4); White Blood Count 6.1 x10^3/uL (4.23-9.07)
[2024-06-12 07:33] LABS: ALBUMIN 4.5 g/dL (3.5-5.0); ANION GAP 15.1 MEQ/L (5-15); BILIRUBIN,TOTAL 0.9 mg/dL (0.2-1.3); Calcium 8.9 mg/dL (8.4-10.2); Creatinine 1 0.72 mg/dL (0.66-1.25); EST GLOMERULAR FILTRATION RATE 94.1 ML/MIN; Potassium 4.7 mmol/L (3.5-5.1)
--- NOTE | 2024-06-12 11:47 | PCM.DS ---
Discharge Summary Date of Admission: 06/10/24 12:43 Date of Discharge: 06/12/24 Admitting Physician: LOLA PINON MD Primary Care Provider: JIM,JAQUELIN Allergies Allergies aspirin Allergy (Verified 06/10/24 13:21) cephalexin [From Keflex] Allergy (Verified 06/10/24 13:21) Penicillins Allergy (Verified 06/10/24 13:21) Hospital Summary - Hospital Course Hospital Course: is a 78 year old male with PMHX of migraines, PVD, CAD, DJD, OA, fibromyalgia, GERD, bipolar, anxiety, depression, BPH, and alcohol abuse who presented to ED 06/10/24 with complaints of multiple joint and neck pain following a fall at home 13 days ago. Per patient report he was evaluated in ED at that time and diagnosed with a dislocated left shoulder.Upon arrival to ED, patient febrile and hypertensive, CT cervical spine with no acute fractures or dislocation. Cervical spondylotic changes show mild progression with newly developed gas lucecies of vacuum phenomena. Stable multilevel disc/ osteophyte complex disease. Lab findings remarkable for Gap/Lactic acidosis and UA suspicious for infection. Patient admitted with UTI, generalized weakness, DDD, and difficulty ambulating. Patient given Levaquin in ED. Left shoulder xray with mild AC degenerative changes and tiny left lung base calcified granuloma. Urine culture positive for Klebsiella- patient treated IP with cipro.Lab and vitals stable. Patient is prescribed Neltrexone for alcoholism. Unable to prescribe narcotic pain control due to interaction with the Neltrexone. Patient is wishing to discontinue Neltrexone - advised follow up with PCP to discuss this as well as possibility of pain management referral. Advised pain control with Tylenol/Lidocaine patches for now. Discharge Note New Diagnosis: UTI New Medications: Ciprofloxacin/Lidocaine patches Follow Up: PCP I spent 35 minutes [id number] with the patient on the day of discharge performing discharge exam, discussing hospital stay and discharge instructions with patient and caregivers, preparation of discharge records, prescriptions & referral forms and addressing any questions/concerns the patient had as documented above. - Vitals & Intake/Output Vital Signs: Vital Signs Temperature 97.9 F 06/12/24 06:59 Pulse Rate 54 L 06/12/24 06:59 Respiratory Rate 16 06/12/24 06:59 Blood Pressure 178/80 06/12/24 06:59 O2 Sat by Pulse Oximetry 98 06/12/24 06:59 Intake & Output: Intake & Output 06/09/24 06/10/24 06/11/24 06/12/24 11:59 11:59 11:59 11:59 Intake Total 4260 840 Output Total 4850 2400 Balance -590 -1560 Weight 91.4 kg 92.9 kg - Lab Result Diagrams: 06/12/24 07:19 06/12/24 07:19 Lab Results-Last 24 Hrs: Lab Results-Last 24 Hours 06/12/24 06/12/24 Range/Units 07:19 07:19 WBC 6.1 (4.23-9.07) x10^3/uL RBC 4.44 L (4.63-6.08) x10^6/uL Hgb 14.2 (13.7-17.5) g/dL Hct 44.6 (40.1-51.0) % MCV 100.5 H (79.0-92.2) fL MCH 32.0 (25.7-32.2) pg MCHC 31.8 L (32.3-36.5) g/dL RDW 13.8 (11.6-14.4) % Plt Count 186 (163-337) x10^3/uL MPV 10.9 (9.4-12.4) fL Gran % 71.7 H (34.0-67.9) % Immature Gran % (Auto) 0.3 (0.001-0.429) % Nucleat RBC Rel Count 0.0 (0.00-0.2) % Eos # (Auto) 0.32 (0.04-0.54) x10^3/uL Immature Gran # (Auto) 0.02 (0.001-0.031) x10^3u/L Absolute Lymphs (auto) 0.75 L (1.32-3.57) x10^3/uL Absolute Monos (auto) 0.61 (0.30-0.82) x10^3/uL Absolute Nucleated RBC 0.00 (0.00-0.012) x10^3u/L Lymphocytes % 12.3 L (21.8-53.1) % Monocytes % 10.0 (5.3-12.2) % Eosinophils % 5.2 (0.8-7.0) % Basophils % 0.5 (0.2-1.2) % Absolute Granulocytes 4.39 (1.78-5.38) x10^3/uL Basophils # 0.03 (0.01-0.08) x10^3/uL Sodium 138 (135-145) mmol/L Potassium 4.7 (3.5-5.1) mmol/L Chloride 100 (98-107) mmol/L Carbon Dioxide 27 (22-30) mmol/L Anion Gap 15.1 H (5-15) MEQ/L BUN 15 (9-20) mg/dL Creatinine 0.72 (0.66-1.25) mg/dL Estimated GFR 94.1 ML/MIN Glucose 126 H (74-106) mg/dL Calcium 8.9 (8.4-10.2) mg/dL Total Bilirubin 0.90 (0.2-1.3) mg/dL AST 34 (17-59) U/L ALT 45 (0-50) U/L Alkaline Phosphatase 49 (38-126) U/L Serum Total Protein 7.0 (6.3-8.2) g/dL Albumin 4.5 (3.5-5.0) g/dL Micro Results-Entire Visit: Microbiology 06/10/24 10:22 Urine Culture - Final Urine, Indwelling Catheter Klebsiella Pneumoniae 06/10/24 10:53 Blood Culture - Preliminary Blood 06/10/24 10:31 Blood Culture - Preliminary Blood - Radiology Exams Ordered Rad Exams-Entire Visit: Radiology Procedures Category Date Time Status CERVICAL SPINE WO CONTRAST [CT] Stat Exams 06/10/24 11:00 Completed SHOULDER Routine Exams 06/11/24 11:49 Completed - Procedures and Test Procedures and Tests throughout Hospitalization: Therapy Orders & Screens 06/11/24 08:00 PT Eval & Treat (MD Order) ONCE Reason for Eval:: falls Diagnosis: UTI Discharge Exam General Appearance: no apparent distress Neurologic Exam: alert, oriented x 3, cooperative Eye Exam: PERRL Ears, Nose, Throat Exam: normal ENT inspection Neck Exam: normal inspection Respiratory Exam: normal breath sounds, lungs clear Cardiovascular Exam: regular rate/rhythm, normal heart sounds Gastrointestinal/Abdomen Exam: soft, normal bowel sounds Male Genitalia Exam: other (FC - chronic) Rectal Exam: deferred Back Exam: normal inspection Extremity Exam: other (Left arm sling) Skin Exam: normal color Lymphatic Exam: adenopathy Final Diagnosis/Problem List - Final Discharge Diagnosis/Problem (1) Complicated UTI (urinary tract infection) Current Visit: Yes Status: Acute Assessment & Plan: 1) Complicated UTI (urinary tract infection) - Chronic mercado- changed IP per protocol - UA with C& S reviewed - suspicious for infection - started on Levaquin in ED - continued cipro - culture result with Klebsiella - probiotics - BC x2 NGTD - tele - CBC, CMP reviewed Code(s): N39.0 - URINARY TRACT INFECTION, SITE NOT SPECIFIED (2) History of recent fall Current Visit: Yes Status: Acute Assessment & Plan: - Reports being seen for this at [facility] and [facility] in which he received XR's at both facilities. Will obtain records from both facilities to review XR's - Pt reports Left shoulder pain- + bruising - Lumbar back and cervical pain - Cervical CT reviewed with no acute fractures or dislocation. Cervical spondylotic changes show mild progression with newly developed gas lucecies of vacuum phenomena. Stable multilevel disc/ osteophyte complex disease. - He is supposed to be wearing a sling for Left shoulder. - Left shoulder xray with no acute findings - Patient takes Naltexone this adds to the complexity of controlling his pain - patient would like to discuss discontinuing treatment with his PCP who prescribes the Naltexone and possible pain management referral - will set up- Will send home on lidocaine patches and advised Tylenol for pain control Code(s): Z91.81 - HISTORY OF FALLING (3) Lactic acidosis Current Visit: Yes Status: Acute Assessment & Plan: - LA 2.7 on admission now at 1.7 WNL- encouraged oral fluid intake since unable to get an IV Code(s): E87.20 - ACIDOSIS, UNSPECIFIED (4) Anxiety with depression Current Visit: Yes Status: Chronic Assessment & Plan: - Continue home meds Code(s): F41.8 - OTHER SPECIFIED ANXIETY DISORDERS (5) BPH (benign prostatic hyperplasia) Current Visit: Yes Status: Chronic Assessment & Plan: - Cont flomax Code(s): N40.0 - BENIGN PROSTATIC HYPERPLASIA WITHOUT LOWER URINRY TRACT SYMP (6) Bipolar 1 disorder Current Visit: Yes Status: Chronic Assessment & Plan: - Cont home meds Code(s): F31.9 - BIPOLAR DISORDER, UNSPECIFIED (7) DDD (degenerative disc disease), cervical Current Visit: Yes Status: Chronic Assessment & Plan: - PT eval for home needs - Tylenol for pain -CT cervical spine as stated above Code(s): M50.30 - OTHER CERVICAL DISC DEGENERATION, UNSP CERVICAL REGION (8) History of DVT (deep vein thrombosis) Current Visit: Yes Status: Chronic Assessment & Plan: - Has hx of manav filter - Continue Eliquis Code(s): Z86.718 - PERSONAL HISTORY OF OTHER VENOUS THROMBOSIS AND EMBOLISM (9) Alcohol abuse Current Visit: No Status: Chronic Assessment & Plan: - Cont. Neatrexone VTE: SCD's Code(s): N39.0 - URINARY TRACT INFECTION, SITE NOT SPECIFIED (2) History of recent fall Current Visit: Yes Status: Acute Code(s): Z91.81 - HISTORY OF FALLING (3) Lactic acidosis Current Visit: Yes Status: Resolved Code(s): E87.20 - ACIDOSIS, UNSPECIFIED (4) Anxiety with depression Current Visit: Yes Status: Chronic Code(s): F41.8 - OTHER SPECIFIED ANXIETY DISORDERS (5) BPH (benign prostatic hyperplasia) Current Visit: Yes Status: Chronic Code(s): N40.0 - BENIGN PROSTATIC HYPERPLASIA WITHOUT LOWER URINRY TRACT SYMP (6) Bipolar 1 disorder Current Visit: Yes Status: Chronic Code(s): F31.9 - BIPOLAR DISORDER, UNSPEC IFIED (7) DDD (degenerative disc disease), cervical Current Visit: Yes Status: Chronic Code(s): M50.30 - OTHER CERVICAL DISC DEGENERATION, UNSP CERVICAL REGION (8) History of DVT (deep vein thrombosis) Current Visit: Yes Status: Chronic Code(s): Z86.718 - PERSONAL HISTORY OF OTHER VENOUS THROMBOSIS AND EMBOLISM (9) Alcohol abuse Current Visit: No Status: Chronic Code(s): F10.10 - ALCOHOL ABUSE, UNCOMPLICATED - Discharge Discharge Date: 06/12/24 Disposition: Home, Self-Care Condition: Good Prescriptions: New Ciprofloxacin [Cipro 500 MG] 500 mg PO BID 7 Days #14 tablet Diclofenac Sodium 2 gm TP QID PRN PRN #0 PRN Reason: Pain Lidocaine HCl 5% Patch [Lidoderm Patch 5%] 1 patch TOP DAILY 30 Days #30 patch Acetaminophen 325 mg [Tylenol 325 mg] 650 mg PO Q6H PRN PRN tablet PRN Reason: Pain And/Or Fever Continue Naltrexone HCl 50 mg PO DAILY Docusate Sodium 100 mg [Docusate Sodium 100 MG] 100 mg PO BID Tamsulosin HCl 0.4 mg [Flomax 0.4 MG] 0.4 mg PO DAILY Nebivolol HCl 10 mg PO DAILY Apixaban [Eliquis] 5 mg PO BID Montelukast Sodium 10 mg [Singulair 10 MG] 10 mg PO DAILY Duloxetine HCl 20 mg PO BID Trazodone HCl 50 mg [Desyrel 50 mg] 50 mg PO DAILY Thiamine HCl 100 mg [Vitamin B-1 100 mg] 100 mg PO DAILY Fluoxetine HCl 20 mg PO DAILY Instructions: Urinary tract infection - Discharge instructions Additional Instructions: [facility] HAS BEEN SET UP FOR YOU. THEY WILL CONTACT YOU TO ARRANGE A TIME TO COME SEE YOU. THEIR PHONE NUMBER IS [phone] IF YOU NEED ANYTHING PRIOR TO THEIR FIRST VISIT REFERRAL SENT TO [facility] ([facility] AND DISABLED) TO SEE IF YOU QUALIFY FOR ANY HELP THRU THEM. YOU CAN FOLLOWUP WITH THEM AT [phone]. A REFERRAL WAS ALSO SENT TO [facility]- THEY WILL REACH OUT TO SEE HOW THEY CAN ASSIST. YOU CAN FOLLOW UP WITH THEM AT [phone] Follow up with: RUBIN LANE PA [NON-STAFF PHY W/O PRIVILEGES] - JAQUELIN FERNANDEZ MD [Primary Care Provider] - 06/20/24 10:00 am ([facility]) Forms: Discharge Instructions
[2024-06-12 16:25] VITALS: BP 147/89; TEMP 97.9; O2SAT 100
== END 2024-06-12 18:04 | disposition home health service (06) ==
LOC: ED 09:27 → MED SURG 12:43
PROVIDERS: ADMIT Internal Medicine; ATTEND Internal Medicine
DX: N39.0 Urinary tract infection, site not specified (principal); Z91.81 History of falling; E87.20 Acidosis, unspecified; F41.8 Other specified anxiety disorders; N40.0 Benign prostatic hyperplasia without lower urinary tract symptoms; F31.9 Bipolar disorder, unspecified; M50.30 Other cervical disc degeneration, unspecified cervical region; F10.10 Alcohol abuse, uncomplicated; I25.10 Atherosclerotic heart disease of native coronary artery without angina pectoris; K21.9 Gastro-esophageal reflux disease without esophagitis; Z86.718 Personal history of other venous thrombosis and embolism; Z79.899 Other long term (current) drug therapy
CPT/HCPCS: 0241U; 36415; 72125; 73030; 80053; 81001; 82550; 83605; 84439; 84443; 84484; 85025; 85027; 85652; 87040; 87077; 87086; 87186; 93041; 93268; 94760; 96374; 97162; 99285; G0378; Q3014; 99283; J1790; Q0162; A9270-GY